=== PATIENT | female | born 1940 | race Caucasian/White ===

== ENCOUNTER 2016-08-11 16:15 | Inpatient (IN) | payer MEDICARE, MEDICAID ==
[2016-08-11] MEDS ORDERED: Morphine INJ* 4 MG/ML 1 ML CARPUJECT IV ONE (17:44)
[2016-08-11 18:07] LABS: Comments Flag Yes; Hematocrit 18 % (35-47); Mean Corpuscular HGB Conc 33 g/dl (31-36); Mean Corpuscular Hemoglobin 34 pg (27-31); Mean Corpuscular Volume 102 fL (80-97); Mean Platelet Volume 10 um3 (7.4-10.4); Red Blood Count 1.73 10^6/ul (4.0-5.4); White Blood Count 6.1 10^3/ul (3.5-10.8)
[2016-08-11 18:08] LABS: Red Cell Distribution Width 25 % (10.5-15)
[2016-08-11 18:09] LABS: Add Diff/Slide Review? Slide Review Added; Hemoglobin 5.8 g/dl (12.0-16.0)
[2016-08-11 18:15] LABS: Albumin 2.1 g/dL (3.2-5.2); BUN/Creatinine Ratio 13.6 (8-20); C Reactive Protein 23.8 mg/L (< 5.00); Calcium 7.8 mg/dL (8.6-10.3); EGFR Non-African American 25.7 (>60); Globulin 2.4 g/dL (2-4); Potassium 3.9 mmol/L (3.5-5.0); Total Bilirubin 3.6 mg/dL (0.2-1.0); Total Protein 4.5 g/dL (6.4-8.9)
[2016-08-11 18:21] LABS: Troponin I 0.06 ng/mL (<0.04)
[2016-08-11 18:31] LABS: Hypochromasia 2+; Polychromasia 1+; Target Cells 1+
[2016-08-11 18:32] LABS: Microcytosis 1+
[2016-08-11] MEDS ORDERED: NS 0.9% 1000 ML* 1,000 ML IV ONE (18:38)
[2016-08-11] MEDS ORDERED: Ondansetron INJ* 2 MG/ML VIAL IV PRN (20:25)
[2016-08-11] MEDS ORDERED: Acetaminophen TAB* 325 MG PO PRN (20:25)
[2016-08-11] MEDS ORDERED: NS 0.9% 1000 ML* 1,000 ML IV SCH (20:30)
[2016-08-11] MEDS ORDERED: Morphine INJ* 2 MG/ML 1 ML CARPUJECT ONE (20:39)
[2016-08-11] MEDS: Morphine INJ* 2 MG/ML 1 ML CARPUJECT IV PRN (20:49)
--- NOTE | 2016-08-11 21:52 | RAD ---
HISTORY: Left hip pain status post fixation of fracture COMPARISONS: July 09, 2016 plain film TECHNIQUE: Multiple contiguous axial CT images are obtained of the left lower extremity, with coronal and sagittal multiplanar reconstructions, without intravenous contrast administration. FINDINGS: BONE DENSITY: Normal. BONES: Again noted is a intertrochanteric fracture of the left femur. The patient is status post internal fixation with a femoral medullary agustín and a femoral neck screw. The fracture lines are still visible. There is no hardware failure or osteolysis. JOINTS: There is osteoarthritis of the left hip and left knee MUSCULATURE: Unremarkable ALIGNMENT: There is no dislocation. SOFT TISSUES: There is subcutaneous edema along the left thigh OTHER FINDINGS: There is a trace amount of ascites in the pelvis. IMPRESSION: 1. AGAIN NOTED IS A FRACTURE OF THE PROXIMAL FEMUR, STATUS POST INTERNAL FIXATION. 2. THERE IS SUBCUTANEOUS EDEMA OF THE LEFT THIGH. 3. OSTEOARTHRITIS. 4. TRACE PELVIC ASCITES
--- NOTE | 2016-08-11 22:58 | ED ---
Jayme Painting Aidan, scribed for Benigno Basurto MD on 08/11/16 at 1816 . GI/ HPI - HPI Summary HPI Summary: 75 y/o female presents to the ED by recommendation from her care home with a complaint of acute, moderate episodes of hematochezia today. Additionally, she has had acute, constant, [id number] (reported 10/10, but no pain distress), sharp left hip pain for the past several weeks since her hip surgery. The pain has progressively gotten worsen and is aggravated by movement. - History of Current Complaint Chief Complaint: EDGIBleed Time Seen by Provider: 08/11/16 17:10 Stated Complaint: BLOOD IN STOOL Hx Obtained From: Patient Onset/Duration: Started Hours Ago - hematochezia, Started Weeks Ago - left hip pain, Still Present - left hip pain Timing: Constant - left hip pain, Intermittent - hematochezia, Lasting Weeks - hip pain Severity: Moderate Current Severity: Moderate - gachyazh-ro-hadete hip pain Number of Pads per Day: 0 - Post-menopausal Number of Pads per Hour: 0 - Post-menopausal Pain Intensity: 10 - left hip pain Location of Pain: Groin - not groin, but left hip Pain Characteristics: Sharp Associated Signs and Symptoms: Positive: Other: - hematochezia and left hip pain P/S surgery Aggravating Factor(s): Movement - aggravates hip pain Alleviating Factor(s): Nothing - unknown - Risk Factors GI Bleed Risk Factor(s): Negative Spontaneous AB Risk Factor(s): Increased Age of Mother Placental Abruption Risk Factor(s): Negative Ectopic Risk Factor(s): Maternal Age ^ 30 Ovarian Torsion Risk Factor(s): Negative - Additional Pertinent History Primary Care Physician: [id number] - Allergy/Home Medications Allergies/Adverse Reactions: Allergies Allergy/AdvReac Type Severity Reaction Status Date / Time No Known Allergies Allergy Verified 08/11/16 16:47 Home Medications: Home Medications Ciprofloxacin TAB* [Cipro Tab*] 500 mg PO BID 08/11/16 [History Confirmed ] Furosemide TAB* [Lasix TAB*] 20 mg PO 1400 08/11/16 [History Confirmed 08/11/16] Furosemide TAB* [Lasix TAB*] 60 mg PO DAILY 08/11/16 [History Confirmed 08/11/16 ] Methylcellulose (Laxative) [Citrucel] 500 mg PO BID PRN 08/11/16 [History Confirmed 08/11/16] Skin Protectants, Misc. [Calazime Skin Protectant/] 1 pst EX DAILY 08/11/16 [ History Confirmed 08/11/16] Spironolactone [Aldactone 50 MG-] 100 mg PO DAILY 08/11/16 [History Confirmed ] oxyCODONE/Acetamin 5/325 MG* [Percocet 5/325 TAB*] 1 tab PO Q4H PRN 08/11/16 [ History Confirmed 08/11/16] PMH/Surg Hx/FS Hx/Imm Hx Endocrine/Hematology History: Denies: Hx Diabetes, Hx Thyroid Disease Cardiovascular History: Reports: Hx Syncope Denies: Hx Hypertension Respiratory History: Denies: Hx Asthma, Hx Chronic Obstructive Pulmonary Disease (COPD) GI History: Reports: Hx Cirrhosis, Hx Gastroesophageal Reflux Disease, Other GI Disorders - Hepatic encephalopathy. Denies: Hx Ulcer History: Reports: Hx Chronic Renal Failure, Hx Renal Disease - and liver disease Musculoskeletal History: Reports: Hx Arthritis Sensory History: Reports: Hx Cataracts, Hx Contacts or Glasses, Hx Vision Problem Opthamlomology History: Reports: Hx Cataracts, Hx Contacts or Glasses, Hx Vision Problem Neurological History: Reports: Hx Headaches, Hx Seizures Psychiatric History: Reports: Hx Depression - [id number] said pt. was prescribed medicine for depression but did not - Surgical History Surgery Procedure, Year, and Place: cataracts - Immunization History Date of Tetanus Vaccine: 2009 Date of Influenza Vaccine: 2011 Infectious Disease History: No Infectious Disease History: Denies: Hx Hepatitis, Hx Human Immunodeficiency Virus (HIV), Hx of Known/ Suspected MRSA, History Other Infectious Disease, Traveled Outside the [place] in Last 30 Days - Family History Known Family History: Negative: Cardiac Disease, Hypertension, Diabetes Family History: Father: Pulmonary embolism. Sister: Cirrhosis - Social History Occupation: Retired Lives: [facility] - currently, however, she typically lives alone Alcohol Use: None Substance Use Type: Reports: None Hx Tobacco Use: Yes Smoking Status (MU): Former Smoker Type: Cigarettes Length of Time of Smoking/Using Tobacco: 15 years ago Have You Smoked in the Last Year: No Review of Systems Constitutional: Negative Eyes: Negative ENT: Negative Cardiovascular: Negative Respiratory: Negative Gastrointestinal: Other - hematochezia Genitourinary: Negative Positive: Arthralgia - left hip pain Skin: Negative Neurological: Negative Psychological: Normal All Other Systems Reviewed And Are Negative: Yes Physical Exam Triage Information Reviewed: Yes Vital Signs On Initial Exam: Initial Vitals Temp Pulse Resp BP Pulse Ox 99.3 F 94 18 113/66 96 08/11/16 16:43 08/11/16 16:43 08/11/16 16:43 08/11/16 16:43 08/11/16 16:43 Vital Signs Reviewed: Yes Appearance: Positive: Well-Appearing, No Pain Distress Skin: Positive: Warm, Skin Color Reflects Adequate Perfusion, Dry, Other - wound is clean Head/Face: Positive: Normal Head/Face Inspection Eyes: Positive: Normal ENT: Positive: Normal ENT inspection Neck: Positive: Supple, Nontender Respiratory/Lung Sounds: Positive: Clear to Auscultation, Breath Sounds Present Cardiovascular: Positive: RRR Abdomen Description: Positive: Nontender, Soft Bowel Sounds: Positive: Present Musculoskeletal: Positive: Normal. Negative: Strength/ROM Intact - tenderness to any ROM of left hip Neurological: Positive: Normal Psychiatric: Positive: Normal, Affect/Mood Appropriate AVPU Assessment: Alert - Daysi Coma Scale Coma Scale Total: 15 Diagnostics - Vital Signs Vital Signs Temp Pulse Resp BP Pulse Ox 08/11/16 17:57 18 08/11/16 16:43 99.3 F 94 18 113/66 96 - Laboratory Lab Results: Lab Results 08/11/16 08/11/16 08/11/16 Range/Units 16:50 16:50 16:50 WBC 6.1 (3.5-10.8) 10^3/ul RBC 1.73 L (4.0-5.4) 10^6/ul Hgb 5.8 L* (12.0-16.0) g/dl Hct 18 L (35-47) % MCV 102 H (80-97) fL MCH 34 H (27-31) pg MCHC 33 (31-36) g/dl RDW 25 H (10.5-15) % Plt Count 75 L (150-450) 10^3/ul MPV 10 (7.4-10.4) um3 Neut % (Auto) 60.0 (38-83) % Lymph % (Auto) 15.6 L (25-47) % [place] % (Auto) 22.0 H (1-9) % Eos % (Auto) 1.9 (0-6) % Baso % (Auto) 0.5 (0-2) % Absolute Neuts (auto) 3.7 (1.5-7.7) 10^3/ul Absolute Lymphs (auto) 1.0 (1.0-4.8) 10^3/ul Absolute Monos (auto) 1.3 H (0-0.8) 10^3/ul Absolute Eos (auto) 0.1 (0-0.6) 10^3/ul Absolute Basos (auto) 0 (0-0.2) 10^3/ul Absolute Nucleated RBC 0.01 10^3/ul Nucleated RBC % 0.1 Normal RBC Morphology Not Reportable Polychromasia 1+ Hypochromasia 2+ Microcytosis 1+ Target Cells 1+ INR (Anticoag Therapy) 1.80 H (0.89-1.11) Sodium 135 (133-145) mmol/L Potassium 3.9 (3.5-5.0) mmol/L Chloride 107 (101-111) mmol/L Carbon Dioxide 22 (22-32) mmol/L Anion Gap 6 (2-11) mmol/L BUN 26 H (6-24) mg/dL Creatinine 1.91 H (0.51-0.95) mg/dL Est GFR ( Amer) 33.0 (>60) Est GFR (Non-Af Amer) 25.7 (>60) BUN/Creatinine Ratio 13.6 (8-20) Glucose 119 H (70-100) mg/dL Calcium 7.8 L (8.6-10.3) mg/dL Total Bilirubin 3.60 H (0.2-1.0) mg/dL AST 50 H (13-39) U/L ALT 24 (7-52) U/L Alkaline Phosphatase 127 H (34-104) U/L Ammonia (16-53) mol/L Troponin I 0.06 H* (<0.04) ng/mL C-Reactive Protein 23.80 H (< 5.00) mg/L Total Protein 4.5 L (6.4-8.9) g/dL Albumin 2.1 L (3.2-5.2) g/dL Globulin 2.4 (2-4) g/dL Albumin/Globulin Ratio 0.9 L (1-3) Blood Type Antibody Screen Crossmatch 08/11/16 08/11/16 Range/Units 16:50 16:50 WBC (3.5-10.8) 10^3/ul RBC (4.0-5.4) 10^6/ul Hgb (12.0-16.0) g/dl Hct (35-47) % MCV (80-97) fL MCH (27-31) pg MCHC (31-36) g/dl RDW (10.5-15) % Plt Count (150-450) 10^3/ul MPV (7.4-10.4) um3 Neut % (Auto) (38-83) % Lymph % (Auto) (25-47) % [place] % (Auto) (1-9) % Eos % (Auto) (0-6) % Baso % (Auto) (0-2) % Absolute Neuts (auto) (1.5-7.7) 10^3/ul Absolute Lymphs (auto) (1.0-4.8) 10^3/ul Absolute Monos (auto) (0-0.8) 10^3/ul Absolute Eos (auto) (0-0.6) 10^3/ul Absolute Basos (auto) (0-0.2) 10^3/ul Absolute Nucleated RBC 10^3/ul Nucleated RBC % Normal RBC Morphology Polychromasia Hypochromasia Microcytosis Target Cells INR (Anticoag Therapy) (0.89-1.11) Sodium (133-145) mmol/L Potassium (3.5-5.0) mmol/L Chloride (101-111) mmol/L Carbon Dioxide (22-32) mmol/L Anion Gap (2-11) mmol/L BUN (6-24) mg/dL Creatinine (0.51-0.95) mg/dL Est GFR ( Amer) (>60) Est GFR (Non-Af Amer) (>60) BUN/Creatinine Ratio (8-20) Glucose (70-100) mg/dL Calcium (8.6-10.3) mg/dL Total Bilirubin (0.2-1.0) mg/dL AST (13-39) U/L ALT (7-52) U/L Alkaline Phosphatase (34-104) U/L Ammonia 37 (16-53) mol/L Troponin I (<0.04) ng/mL C-Reactive Protein (< 5.00) mg/L Total Protein (6.4-8.9) g/dL Albumin (3.2-5.2) g/dL Globulin (2-4) g/dL Albumin/Globulin Ratio (1-3) Blood Type A Positive Antibody Screen Negative Crossmatch See Detail Result Diagrams: 08/11/16 16:50 08/11/16 16:50 Lab Statement: Any lab studies that have been ordered have been reviewed, and results considered in the medical decision making process. GIGU Course/Dx - Course Course Of Treatment: Ms. Ford was found to be acutely more anemic than normal. This is likely a lower GI bleed as her BUN is not changed. She also has low proteins and anasarca. She will be admitted to the hospitalists and PRBC's have been ordered. - Diagnoses Provider Diagnoses: GI bleed - Critical Care Time Critical Care Time: 30-74 min Discharge - Discharge Plan Condition: Stable Disposition: ADMITTED TO [facility] The documentation as recorded by the Jayme wayne Aidan accurately reflects the service I personally performed and the decisions made by me, Benigno Basurto MD.
[2016-08-11] MEDS: Omeprazole CAP* 20 MG PO SCH (23:17)
[2016-08-11] MEDS: RiFAXimin* 550 MG TAB PO SCH (23:18)
--- NOTE | 2016-08-12 01:31 | HP ---
HISTORY AND PHYSICAL: DATE OF ADMISSION: 08/11/16 PRIMARY CARE PROVIDER: Dr. Muro. CHIEF COMPLAINT: Bloody stool and left hip pain. HISTORY OF PRESENT ILLNESS: Ms. Ford is a 75-year-old female who was hospitalized from 07/09/16 to 07/25/16 after sustaining a left intertrochanteric hip fracture. The patient was taken initially to the operating room on 07/09/16 for closed reduction and gamma nail fixation. The patient reportedly did well following this; however, on 07/16/16, the patient was taken back to the operating room for exploration of her hip wound as there appeared to be no significant healing despite being 6 days postop. The patient was ultimately transferred to [facility] on 07/25/16 for subacute rehab. During that hospitalization, the patient was also treated for acute renal failure and significant postoperative anemia. The patient reportedly have been doing well at rehab up until this past , 08/07/16. The patient on the evening of 08/06/16 sustained a fall. She states that she believes that she either took a misstep or fell out of her slippers. She denied any loss of consciousness at that time. The patient states that she did not hit her left leg. On 08/07/16 in the morning, she again had another fall again without loss of consciousness, but it was a mechanical fall. The patient's son stated that he saw her on Thursday and she was doing well with rehab; however, by , she was not ambulatory. The patient has since complained of severe left hip pain. The patient states that the pain is dramatically worse today and she did not get up to walk due to her severe pain. The patient's family noted in the emergency room that there was bruising going down the back of the left leg. They stated this was not there prior to her fall. On the day of admission, the staff at [facility] noted the patient to have bright red blood in her stool. The patient herself had not inspected her stools. She denied any lightheadedness or dizziness. She denies any shortness of breath or chest pain. She denies any fevers or chills. She does state she has had a cough that has been present since prior to surgery and she is not bringing up any mucus. PAST MEDICAL HISTORY: 1. Nonalcoholic fatty liver disease. 2. 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 3. History of hepatic encephalopathy. 4. GERD. 5. Seizure disorder. 6. Chronic anemia. PAST SURGICAL HISTORY: 1. Cataract extraction. 2. Left hip closed reduction and internal fixation on 07/09/16 followed by wound exploration on 07/16/16. MEDICATIONS: 1. Percocet 5/325 one to two tabs p.o. q.4 hours p.r.n. 2. Spironolactone 100 mg p.o. daily. 3. Calazime skin protectant. 4. Rifaximin 550 mg p.o. b.i.d. 5. Potassium chloride 10 mEq p.o. every other day. 6. Omeprazole 20 mg p.o. b.i.d. 7. [place]-3 fatty acids 1 cap p.o. daily. 8. Multivitamin 1 tab p.o. daily. 9. Citrucel 500 mg p.o. b.i.d. p.r.n. constipation. 10. Lactulose 45 mL p.o. t.i.d. 11. Lasix 60 mg p.o. q.a.m., 20 mg p.o. q. 1400 daily. 12. Ciprofloxacin 500 mg p.o. b.i.d. ALLERGIES: No known drug allergies. FAMILY HISTORY: Mom is living. She is 101. She has no significant medical history. Dad of a PE. The patient has a sister, who also has cirrhosis. SOCIAL HISTORY: The patient is a former smoker quitting greater than 15 years ago. She denies any alcohol use. 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 She is . She has 2 children. Her son, Shashi Ford, is her healthcare proxy. REVIEW OF SYSTEMS: The patient denies any fevers or chills. She states her appetite is poor, but attributes that to not liking the food at [facility]. She denies any chest pain. She has chronic lower extremity edema that is slightly better now than it has been. She admits to cough as noted above, but no shortness of breath. No nausea, vomiting, abdominal pain, or constipation. She has 4 to 5 loose bowel movements per day. No hematuria. No dysuria. No focal weakness or sensory loss. No sudden changes in vision. No dysphagia. She complains of severe left hip pain as noted above. No rashes. No anxiety or depression. PHYSICAL EXAMINATION GENERAL: The patient is a well-developed, elderly, obese female, lying in a stretcher, appearing somewhat sleepy and confused, but otherwise in no acute distress. VITAL SIGNS: Blood pressure 124/36, pulse 88, respirations 16, temp 98.6, O2 sat 95% on room air. HEENT: Pupils are equal. They are approximately 2 mm. There is evidence of prior cataract extraction. Extraocular muscles are intact. Oropharynx is clear. Oral mucosa is moist, though her tongue appears furrowed and dark red. There is no submandibular, cervical, or supraclavicular adenopathy noted. Thyroid is not enlarged. No thyroid nodules are noted. PULMONARY: Breath sounds are diminished at the base bilaterally. CARDIAC: Normal S1, S2. Regular rate and rhythm. I do not appreciate any murmurs. There is marked anasarca of the patient's bilateral lower extremities up to the hips and lower abdomen. ABDOMEN: Bowel sounds are present. Abdomen is soft, nontender, and nondistended. MUSCULOSKELETAL: There is no cyanosis or clubbing of the digits. There is full active range of motion of the upper extremities. Lower extremity range of motion in general is limited due to pain in the left hip. The patient does have pain to passive internal and external rotation of the left hip. There is less significant pain to straight leg raising pf the left lower extremity. NEUROLOGIC: Cranial nerves II through XII are grossly intact. Sensation is intact to light touch throughout. Strength is 5/5 and symmetric in the upper extremities. Lower extremity strength is limited due to pain. The patient appears somewhat confused and in general poor historian. PSYCH: The patient is alert. Affect appears appropriate. SKIN: Warm. It is dry. There are no rashes. The left hip incision has sutures in place. There is marked edema surrounding this. There is also brawny discoloration surrounding this with slight erythema. The wound itself does not appear to be well-healed. There is serous drainage noted on the dressing overlying the incision. This is slightly foul smelling. DIAGNOSTIC STUDIES/LAB DATA: WBC 6.1, hemoglobin 5.8, hematocrit 18, platelets 75. INR 1.8. Sodium 135, potassium 3.9, chloride 107, CO2 22, BUN 26 , creatinine 1.91, glucose 119, calcium 7.8. Bilirubin 3.6, AST 50, ALT 24, alk phos 127. Ammonia 37. Troponin 0.06. CRP 23.8. Albumin 2.1. EKG pending. Left lower extremity CT pending. ASSESSMENT AND PLAN: Ms. Ford is a 75-year-old female who has a history of left hip fracture status post closed reduction and internal fixation on followed by wound exploration on 07/16/16 who presents to the emergency room with complaints of both severe left hip pain and inability to walk as well as bright red blood per rectum. 1. Left hip pain: The patient unfortunately did take 2 falls last week. Since the time of those falls, the patient has not been able to ambulate well. In fact, she cannot ambulate at all on the date of admission. I am very concerned about this. She states that she did not hit her left leg when she fell; however, there is bruising noted to the posterior aspect of the left leg including the calf and just above the knee. Additionally, the patient has slightly foul smelling drainage from her left hip wound. She has been on Cipro at the long-term. She does not have fever nor does she have an elevated white blood cell count. I suspect there is a very low likelihood that this is in fact a wound infection. I do believe it is important to get imaging of that left hip. I feel that a CT scan would be most appropriate at this time. When they have the result of the CT scan, I will contact the orthopedic surgeon on- call to review. In the meantime, she will have IV morphine available for severe pain and Percocet for more milder pain. 2. Bright red blood per rectum: The patient reportedly had one stool at the long-term, was bright red blood per rectum. In the ER, the patient had a soft bowel movement that was dark brown in color without any visible blood. Her stool occult blood is pending. The patient's hemoglobin and hematocrit have dropped since her discharge. During her previous hospitalization, she received 4 units of packed red blood cells. On discharge, her hemoglobin was 8.0. It has subsequently trended down to 5.8. This could be secondary to GI bleed; however, I am also concerned that she may have bled into the left leg. I am going to be obtaining a CT of at least the left hip. We will follow her hemoglobin and hematocrit. She has been ordered to receive 2 units of packed red blood cells. 3. Elevated troponin: I suspect that this represents demand ischemia. The patient has not had an EKG yet and I have ordered this. A followup troponin will be obtained. If her troponin does climb unfortunately, she would not be a candidate for heparin drip or Lovenox as there is concerned from GI bleed or bleeding into the left leg. The patient is currently chest pain free. 4. Acute kidney injury: The patient prior to falling and breaking her hip on 07/09/16 had a normal creatinine. Her creatinine did climb to a maximum of 2.4 during her hospitalization in the end of June to the beginning of July. Her creatinine had trended down to 1.28 on 07/30/16. Her creatinine is now back up to 1.91. The patient's Lasix dose was increased as was her spironolactone. At this time, I do feel that attempting to diurese the patient is important as she is not healing her left hip wound. I am going to go ahead, however, and give her 1 liter of fluid. She will resume her diuretics tomorrow. We will need to follow up her lab work at that time. 5. Cirrhosis with elevated AST and bilirubin: These are chronic. In fact, the patient's AST and bilirubin are slightly better than they are normally. This is on the basis of her nonalcoholic fatty liver disease and cirrhosis. We will follow these levels intermittently. 6. Elevated INR: This is secondary to the patient's history of cirrhosis. We will need to follow this. 7. Thrombocytopenia and chronic anemia: The patient's have been chronically anemic, though now worsened. Her thrombocytopenia is about stable. This is likely secondary to her cirrhosis. We will follow these counts closely. 8. Cirrhosis secondary to nonalcoholic fatty liver disease with intermittent episodes of hepatic encephalopathy: We will go ahead and continue the patient' s usual dose of rifaximin and lactulose. We will monitor her mental status in the setting of this acute illness. 9. DVT prophylaxis: According to the Adult Thrombosis Prophylaxis Risk Factor Assessment Guide, the patient has a total risk factor score of 9 making her the highest risk. She will be placed on SCDs alone for now as there is concerned for GI bleed or bleeding into the left leg. 10. Code status: DNR and again, the patient's son, Shashi, is her health care proxy. TIME SPENT: 70 minutes were spent admitting this patient. CC: Dr. Rizzo; Dr. Muro* [id number]/CPS #: [id number] MTDD
[2016-08-12 03:56] LABS: Comments Flag Yes; Hematocrit 22 % (35-47); Hemoglobin 7.2 g/dl (12.0-16.0); Mean Corpuscular HGB Conc 33 g/dl (31-36); Mean Corpuscular Hemoglobin 31 pg (27-31); Mean Corpuscular Volume 95 fL (80-97); Mean Platelet Volume 9 um3 (7.4-10.4); Red Blood Count 2.29 10^6/ul (4.0-5.4); White Blood Count 6.3 10^3/ul (3.5-10.8)
[2016-08-12 03:57] LABS: Red Cell Distribution Width 24 % (10.5-15)
[2016-08-12 05:51] LABS: Hematocrit 22 % (35-47); Hemoglobin 7.2 g/dl (12.0-16.0)
[2016-08-12 05:57] LABS: Comments Flag Yes
[2016-08-12 06:31] LABS: BUN/Creatinine Ratio 13.9 (8-20); EGFR Non-African American 27.5 (>60); Potassium 3.7 mmol/L (3.5-5.0)
[2016-08-12 06:32] LABS: Calcium 7.5 mg/dL (8.6-10.3); EGFR African American 35.4 (>60)
[2016-08-12] MEDS ORDERED: Spironolactone TAB* 25 MG PO SCH (09:00)
[2016-08-12] MEDS ORDERED: Furosemide TAB* 20 MG PO SCH ×2 (09:00→14:00)
[2016-08-12] MEDS: Multivitamins/Minerals TAB PO SCH (10:14)
[2016-08-12] MEDS: Omeprazole CAP* 20 MG PO SCH ×2 (10:14→21:27)
[2016-08-12] MEDS: RiFAXimin* 550 MG TAB PO SCH ×2 (10:15→21:27)
[2016-08-12] MEDS ORDERED: Phytonadione Oral Solution* 5 MG/25 ML UDC PO ONE (16:51)
[2016-08-12] MEDS ORDERED: Piperac/Tazob 3.375 gm in NS* 3.375 GM/100 ML BAG IVPB ONE (17:00)
[2016-08-12] MEDS ORDERED: Vancomycin(*) 1,250 MG in NS 0.9% 250 ML* 250 ML IVPB ONE (18:00)
--- NOTE | 2016-08-12 19:44 | PN ---
Subjective Date of Service: 08/12/16 Interval History: HOSPITALIST PROGRESS NOTE Patient seen and examined at bedside. She feels well today. States her hip pain is less intense. Tolerating diet well with no abdominal pain, nausea or vomiting. Had BMs today, but no BRBPR reported. Family History: Unchanged from Admission Social History: Unchanged from Admission Past Medical History: Unchanged from Admission Objective Active Medications: Acetaminophen (Tylenol Tab*) 650 mg PO Q4H PRN PRN Reason: PAIN Furosemide (Lasix Tab*) 60 mg PO DAILY [facility] Last Admin: 08/12/16 10:14 Dose: 60 mg Furosemide (Lasix Tab*) 20 mg PO 1400 [facility] Last Admin: 08/12/16 15:54 Dose: 20 mg Piperacillin Sod/Tazobactam Sod (Zosyn 3.375 Gm In Ns Premix*) 3.375 gm in 100 mls @ 25 mls/hr IVPB Q8H [facility] Vancomycin HCl 1,000 mg/ (Sodium Chloride) 250 mls @ 166.667 mls/hr IVPB Q12H [facility] Lactulose (Lactulose*) 45 ml PO TID [facility] Last Admin: 08/12/16 15:55 Dose: 45 ml Morphine Sulfate (Morphine Inj (Syringe)*) 2 mg IV Q4H PRN PRN Reason: PAIN - MILD Last Admin: 08/11/16 20:49 Dose: 2 mg Multivitamins/Minerals (Theragran/Minerals Tab*) 1 tab PO DAILY [facility] Last Admin: 08/12/16 10:14 Dose: 1 tab Omeprazole (Prilosec Cap*) 20 mg PO BID [facility] Last Admin: 08/12/16 10:14 Dose: 20 mg Ondansetron HCl (Zofran Inj*) 4 mg IV Q6H PRN PRN Reason: NAUSEA Oxycodone/Acetaminophen (Percocet 5/325 Tab*) 1 tab PO Q4H PRN PRN Reason: PAIN Pharmacy Profile Note (Vancomycin Trough Check) 1 note FOLLOW UP 0600 [facility] Stop: 08/14/16 06:29 Potassium Chloride (Klor Con Er Tab*) 10 meq PO EVERY OTHER DAY [facility] Rifaximin (Xifaxan*) 550 mg PO BID [facility] Last Admin: 08/12/16 10:15 Dose: 550 mg Spironolactone (Aldactone Tab*) 100 mg PO DAILY [facility] Last Admin: 12/27/16 10:13 Dose: 100 mg Vital Signs 08/12/16 08/12/16 11:31 15:25 Temperature 98.7 F 98.1 F Pulse Rate 85 87 Respiratory 16 16 Rate Blood Pressure 120/48 123/46 (mmHg) O2 Sat by Pulse 97 94 Oximetry Oxygen Devices in Use Now: None Appearance: Elderly lady lying in bed in NAD. Eyes: - - Mild scleral icterus Ears/Nose/Mouth/Throat: Mucous Membranes Moist Neck: Trachea Midline Respiratory: Symmetrical Chest Expansion and Respiratory Effort, Clear to Auscultation Cardiovascular: RRR - Normal S1 and S2 Abdominal: NL Sounds; No Tenderness; No Distention Extremities: - - Bilateral upper and lower extremities edema. Surgical incisions look clean and there is no drainage at this time. Ecchymosis to the posterior aspect of LLE Neurological: Alert and Oriented x 3, NL Muscle Strength and Tone Lines/Tubes/Other Access: Clean, Dry and Intact Peripheral IV Nutrition: Taking PO's Result Diagrams: 08/12/16 05:28 08/12/16 05:28 Assess/Plan/Problems-Billing Assessment: Mrs. 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 - Patient Problems (1) Left hip pain Comment: - CT showed proximal femur fracture s/p IF, subcutaneous edema, but no other fluid collections. - She has upper and lower extremities edema suggestive of anasarca and not only on her left hip area. - No drainage from surgical incision and she has no signs of sepsis. - Ortho consult requested. - Start Vanco/Zosyn empirically until evaluation. (2) BRBPR (bright red blood per rectum) Comment: - Painless hematochezia - suspect diverticular in nature. Last colonoscopy in 2013 showed sigmoid diverticulosis. - Continue to monitor. - GI consult requested. (3) Acute blood loss anemia Comment: - Chronically anemic, but now worse. - S/p 2 PRBC - continue to monitor. - Check anemia w/u. (4) Elevated troponin Comment: - Elevated troponin in the setting of significant anemia. - Stable. (5) KYRA (acute kidney injury) Comment: - Probably pre-renal in the setting of significant anemia. - Trending down. (6) Non-alcoholic cirrhosis Comment: - She has significant edema, has gained 20lbs since prior admission - will switch Furosemide to IV. - Ammonia is normal - continue Lactulose and Rifaximin. (7) DVT prophylaxis Comment: - Pharmacological prophylaxis contraindicated in the setting of GI bleed. - SCDs.
[2016-08-12] MEDS: Piperac/Tazob 3.375 gm in NS* 3.375 GM/100 ML BAG IVPB SCH (21:27)
--- NOTE | 2016-08-12 23:25 | CONS ---
GASTROENTEROLOGY CONSULT: DATE: CONSULTING PHYSICIAN: Syl Unger. REASON FOR CONSULT: Heme-positive stool with history of a bloody stool at [facility] 2 days ago. HISTORY: This 75-year-old woman known to have nonalcoholic cirrhosis for at least 10 years, exactly 1 month ago had a left hip fracture that was pinned. She has been convalescing at [facility]. Apparently, she has fallen on a couple of occasions. She was thus brought to the emergency room with pain in the hip and also reports from the facility that her last stool had been bloody. In the emergency room, however, she passed a brown stool that was not grossly bloody. It was heme positive. The patient had been going through physical therapy at the halfway and this is reviewed thoroughly in Dr. Tariq's history from yesterday. She had had a colonoscopy, March 2014, in [place] where a number of polyps were removed (apparently via cautery) and she was also said to have sigmoid diverticulosis. There were apparently no complications. Her liver disease was not apparently a factor. PAST MEDICAL HISTORY: 1. Morbid obesity. 2. Non-alcoholic fatty liver - a 2007 history and physical here refers to a liver biopsy in [place] from 2005 or before. 3. Hepatic encephalopathy - in the 2007 admission and managed carefully at home. 4. Chronic anemia and pancytopenia. OUTPATIENT MEDS: Furosemide 20 mg; spironolactone 100; rifaximin 550 b.i.d.; methylcellulose; omeprazole 20 b.i.d.; Cipro recently, indication uncertain. SOCIAL HISTORY: She lives in [place] with her son, Tru, and his . He goes by [employer]. Her [id number] mother lives with them. REVIEW OF SYSTEMS: No history of syncope, DE, valvular disease, hemoptysis, or TB. Her seizure disorder was discussed in 2007 and 2009 when she had neurologic consults. PHYSICAL EXAM: She is a morbidly obese woman in bed, a little drowsy. She is oriented to person and place and time and knew she had been in [facility]. Her temp is 98.1, pulse 92, blood pressure 123/46. HEENT exam shows some mild icterus. There is anasarca with dependent edema on the flanks. She has no adenopathy. Lungs are clear but effort is poor. Heart sounds are clear. Breast and pelvic exams are deferred. Rectal exam is deferred as she has the hip pinning and is not very mobile. The abdomen shows multiple old striae that are not colored. The abdomen is obese and there is no palpable organomegaly. Extremities show 2 to 3+ edema. Compression devices are in place. LABORATORY DATA: INR 1.80 (no warfarin been given) and after 2 units transfusion, hemoglobin 7.2, hematocrit 22, MCV 95, platelets 64 (consistent with prior). Electrolytes: Sodium 133, potassium 3.7, creatinine 1.80, BUN 25. IMPRESSION: This 75-year-old woman 1 month out from hip pinning is having a difficult convalescence which her morbid obesity, mobility impairment, and underlying liver disease would predict. The recent bleeding event has not been associated with a precipitous drop in her hemoglobin as compared to her already compromised baseline and it has not raised her BUN. It does seem more likely to be from the anal canal or an anorectal mechanical event or possibly a very small diverticular bleed. In some settings, upper endoscopy to look for varices to prophylax would make sense (may have been dnone at [facility]) but after ten yrs with no problem at this time, she has enough going on to defer on that. Her nutrition is a priority and I do not believe upper endoscopy is indicated on a preventative basis. As bleeding has stopped it does not appear a priority to work up this current chronic anemia or the rectal bleeding that has been seen. She is clearly not a candidate for another polyp surveillance colonoscopy and results for colonoscopy are not likely to affect her decision making at this time. [id number]/[facility] #: [id number] FEROZ
[2016-08-13] MEDS: Piperac/Tazob 3.375 gm in NS* 3.375 GM/100 ML BAG IVPB SCH ×3 (05:23→23:05)
[2016-08-13 05:39] LABS: Hematocrit 21 % (35-47); Mean Corpuscular HGB Conc 34 g/dl (31-36); Mean Corpuscular Hemoglobin 32 pg (27-31); Mean Corpuscular Volume 96 fL (80-97); Mean Platelet Volume 10 um3 (7.4-10.4); Red Blood Count 2.13 10^6/ul (4.0-5.4); White Blood Count 6.3 10^3/ul (3.5-10.8)
[2016-08-13 05:40] LABS: Comments Flag Yes
[2016-08-13] MEDS: Vancomycin(*) 1,000 MG in NS 0.9% 250 ML* 250 ML IVPB SCH ×2 (05:40→17:57)
[2016-08-13 05:41] LABS: Hemoglobin 6.9 g/dl (12.0-16.0); Red Cell Distribution Width 24 % (10.5-15)
[2016-08-13 05:52] LABS: Anion Gap 5 mmol/L (2-11); BUN/Creatinine Ratio 14.6 (8-20); Blood Urea Nitrogen 23 mg/dL (6-24); C Reactive Protein 21.33 mg/L (< 5.00); CO2 Carbon Dioxide 23 mmol/L (22-32); Calcium 7.9 mg/dL (8.6-10.3); Chloride 108 mmol/L (101-111); EGFR African American 41.4 (>60); EGFR Non-African American 32.2 (>60); Glucose 101 mg/dL (70-100); Potassium 3.5 mmol/L (3.5-5.0); Sodium 136 mmol/L (133-145)
[2016-08-13 06:28] LABS: Iron 81 ug/dL (50-212); Total Iron Binding Capacity 202 mcg/dL (250-450); Transferrin 144 mg/dL (203-362)
[2016-08-13 06:33] LABS: Erythrocyte Sed Rate 10 mm/Hr (0-40)
[2016-08-13 06:49] LABS: Ferritin 187.6 ng/mL (11-307)
[2016-08-13 06:54] LABS: Folate > 20.00 ng/mL (>3.99)
[2016-08-13 06:55] LABS: Vitamin B12 > 1450 pg/mL (180-914)
[2016-08-13] MEDS: Omeprazole CAP* 20 MG PO SCH ×2 (08:53→21:42)
[2016-08-13] MEDS: RiFAXimin* 550 MG TAB PO SCH ×2 (08:53→23:04)
[2016-08-13] MEDS: Furosemide IV* 10 MG/ML VIAL (40 MG) IV SCH (08:53)
[2016-08-13] MEDS: Multivitamins/Minerals TAB PO SCH (08:53)
[2016-08-13] MEDS: Potassium Chlor TAB* 10 MEQ TAB.ER PO SCH (08:53)
--- NOTE | 2016-08-13 10:40 | PN ---
Subjective Date of Service: 08/13/16 Interval History: Ms. Ford states that she is feeling very tired today. When asked if she feels better than on arrival, she states, " Well, at least I am awake." She denies chest pain, SOB, nausea, or abdominal pain. She has pain in her hips and also pain in her legs when they are pressed. Family History: Unchanged from Admission Social History: Unchanged from Admission Past Medical History: Unchanged from Admission Objective Active Medications: Acetaminophen (Tylenol Tab*) 650 mg PO Q4H PRN Furosemide (Lasix Iv*) 40 mg IV DAILY [facility] Piperacillin Sod/Tazobactam Sod (Zosyn 3.375 Gm In Ns Premix*) 3.375 gm in 100 mls @ 25 mls/hr IVPB Q8H [facility] Vancomycin HCl 1,000 mg/ (Sodium Chloride) 250 mls @ 166.667 mls/hr IVPB Q12H [facility] Lactulose (Lactulose*) 45 ml PO TID [facility] Morphine Sulfate (Morphine Inj (Syringe)*) 2 mg IV Q4H PRN Multivitamins/Minerals (Theragran/Minerals Tab*) 1 tab PO DAILY [facility] Omeprazole (Prilosec Cap*) 20 mg PO BID [facility] Ondansetron HCl (Zofran Inj*) 4 mg IV Q6H PRN Oxycodone/Acetaminophen (Percocet 5/325 Tab*) 1 tab PO Q4H PRN Pharmacy Profile Note (Vancomycin Trough Check) 1 note FOLLOW UP 0600 [facility] Potassium Chloride (Klor Con Er Tab*) 10 meq PO EVERY OTHER DAY [facility] Rifaximin (Xifaxan*) 550 mg PO BID [facility] Spironolactone (Aldactone Tab*) 100 mg PO DAILY@1600 [facility] Vital Signs 08/12/16 08/12/16 08/12/16 11:16 11:31 15:25 Temperature 98.7 F 98.1 F Pulse Rate 85 87 Respiratory 16 16 16 Rate Blood Pressure 120/48 123/46 (mmHg) O2 Sat by Pulse 97 94 Oximetry 08/12/16 08/12/16 08/13/16 19:27 20:00 00:13 Temperature 99.2 F 98.2 F Pulse Rate 85 80 Respiratory 14 14 16 Rate Blood Pressure 109/46 126/45 (mmHg) O2 Sat by Pulse 95 99 Oximetry 08/13/16 08/13/16 08/13/16 05:04 05:43 08:00 Temperature 97.9 F 98.1 F Pulse Rate 80 Respiratory 16 18 Rate Blood Pressure 112/43 (mmHg) O2 Sat by Pulse 99 Oximetry 08/13/16 08:48 Temperature 98.4 F Pulse Rate 82 Respiratory 18 Rate Blood Pressure 117/40 (mmHg) O2 Sat by Pulse 99 Oximetry Oxygen Devices in Use Now: None Appearance: Female sitting up in chair in NAD Respiratory: Symmetrical Chest Expansion and Respiratory Effort, Clear to Auscultation Cardiovascular: NL Sounds; No Murmurs; No JVD Abdominal: NL Sounds; No Tenderness; No Distention Skin: No Rash or Ulcers Neurological: Alert and Oriented x 3, NL Muscle Strength and Tone, - - +3 pitting edema up to hip bilaterally Nutrition: Taking PO's Result Diagrams: 08/13/16 05:25 08/13/16 05:25 Additional Lab and Data: Lab Results 08/11/16 08/11/16 08/11/16 Range/Units 16:50 16:50 16:50 WBC 6.1 (3.5-10.8) 10^3/ul RBC 1.73 L (4.0-5.4) 10^6/ul Hgb 5.8 L* (12.0-16.0) g/dl Hct 18 L (35-47) % MCV 102 H (80-97) fL MCH 34 H (27-31) pg MCHC 33 (31-36) g/dl RDW 25 H (10.5-15) % Plt Count 75 L (150-450) 10^3/ul MPV 10 (7.4-10.4) um3 Neut % (Auto) 60.0 (38-83) % Lymph % (Auto) 15.6 L (25-47) % Austin % (Auto) 22.0 H (1-9) % Eos % (Auto) 1.9 (0-6) % Baso % (Auto) 0.5 (0-2) % Absolute Neuts (auto) 3.7 (1.5-7.7) 10^3/ul Absolute Lymphs (auto) 1.0 (1.0-4.8) 10^3/ul Absolute Monos (auto) 1.3 H (0-0.8) 10^3/ul Absolute Eos (auto) 0.1 (0-0.6) 10^3/ul Absolute Basos (auto) 0 (0-0.2) 10^3/ul Absolute Nucleated RBC 0.01 10^3/ul Nucleated RBC % 0.1 Normal RBC Morphology Not Reportable Polychromasia 1+ Hypochromasia 2+ Microcytosis 1+ Target Cells 1+ INR (Anticoag Therapy) 1.80 H (0.89-1.11) Sodium 135 (133-145) mmol/L Potassium 3.9 (3.5-5.0) mmol/L Chloride 107 (101-111) mmol/L Carbon Dioxide 22 (22-32) mmol/L Anion Gap 6 (2-11) mmol/L BUN 26 H (6-24) mg/dL Creatinine 1.91 H (0.51-0.95) mg/dL Est GFR ( Amer) 33.0 (>60) Est GFR (Non-Af Amer) 25.7 (>60) BUN/Creatinine Ratio 13.6 (8-20) Glucose 119 H (70-100) mg/dL Calcium 7.8 L (8.6-10.3) mg/dL Total Bilirubin 3.60 H (0.2-1.0) mg/dL AST 50 H (13-39) U/L ALT 24 (7-52) U/L Alkaline Phosphatase 127 H (34-104) U/L Ammonia (16-53) mol/L Troponin I 0.06 H* (<0.04) ng/mL C-Reactive Protein 23.80 H (< 5.00) mg/L Total Protein 4.5 L (6.4-8.9) g/dL Albumin 2.1 L (3.2-5.2) g/dL Globulin 2.4 (2-4) g/dL Albumin/Globulin Ratio 0.9 L (1-3) Blood Type Antibody Screen Crossmatch 08/11/16 08/11/16 Range/Units 16:50 16:50 WBC (3.5-10.8) 10^3/ul RBC (4.0-5.4) 10^6/ul Hgb (12.0-16.0) g/dl Hct (35-47) % MCV (80-97) fL MCH (27-31) pg MCHC (31-36) g/dl RDW (10.5-15) % Plt Count (150-450) 10^3/ul MPV (7.4-10.4) um3 Neut % (Auto) (38-83) % Lymph % (Auto) (25-47) % Austin % (Auto) (1-9) % Eos % (Auto) (0-6) % Baso % (Auto) (0-2) % Absolute Neuts (auto) (1.5-7.7) 10^3/ul Absolute Lymphs (auto) (1.0-4.8) 10^3/ul Absolute Monos (auto) (0-0.8) 10^3/ul Absolute Eos (auto) (0-0.6) 10^3/ul Absolute Basos (auto) (0-0.2) 10^3/ul Absolute Nucleated RBC 10^3/ul Nucleated RBC % Normal RBC Morphology Polychromasia Hypochromasia Microcytosis Target Cells INR (Anticoag Therapy) (0.89-1.11) Sodium (133-145) mmol/L Potassium (3.5-5.0) mmol/L Chloride (101-111) mmol/L Carbon Dioxide (22-32) mmol/L Anion Gap (2-11) mmol/L BUN (6-24) mg/dL Creatinine (0.51-0.95) mg/dL Est GFR ( Amer) (>60) Est GFR (Non-Af Amer) (>60) BUN/Creatinine Ratio (8-20) Glucose (70-100) mg/dL Calcium (8.6-10.3) mg/dL Total Bilirubin (0.2-1.0) mg/dL AST (13-39) U/L ALT (7-52) U/L Alkaline Phosphatase (34-104) U/L Ammonia 37 (16-53) mol/L Troponin I (<0.04) ng/mL C-Reactive Protein (< 5.00) mg/L Total Protein (6.4-8.9) g/dL Albumin (3.2-5.2) g/dL Globulin (2-4) g/dL Albumin/Globulin Ratio (1-3) Blood Type A Positive Antibody Screen Negative Crossmatch See Detail Assess/Plan/Problems-Billing Assessment: Mrs. 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 - Patient Problems (1) Anemia Comment: Responded appropriately to 2 units PRBC. Report of BRBPR x 1 and stool occult blood positive but GI sees no convincing evidence of significant bleed, suspect hemorrhoids vs small diverticular bleed. Last colonoscopy 2013. GI does not recommend upper or lower endoscopy at this point. No B12, iron, or folate deficiency. Suspect anemia of chronic illness and cirrhosis. (2) Left hip pain Comment: CT showed proximal femur fracture s/p IF, subcutaneous edema, but no other fluid collections. She has upper and lower extremities edema suggestive of anasarca and not only on her left hip area. No drainage from surgical incision and she has no signs of sepsis. Ortho consult requested. Continue Vanco /Zosyn empirically until evaluation. (3) Elevated troponin Comment: Peaked at 0.06. Elevated troponin in the setting of significant anemia , suspect demand ischemia. (4) Non-alcoholic cirrhosis Comment: She has significant edema, has gained 20lbs since prior admission - continue Furosemide IV. Daily weights. Ammonia is normal - continue Lactulose and Rifaximin. (5) GERD (gastroesophageal reflux disease) (6) Full code status Comment: Continue omeprazole. (7) DVT prophylaxis Comment: Pharmacological prophylaxis contraindicated in the setting of GI bleed. SCDs. Status and Disposition: Inpatient with expected LOS > 2 days. Return to [facility] when medically stable.
[2016-08-13] MEDS ORDERED: Furosemide IV* 10 MG/ML VIAL (40 MG) IV ONE (13:00)
[2016-08-13] MEDS: Spironolactone TAB* 25 MG PO SCH (16:43)
[2016-08-13] MEDS ORDERED: Mouth Piece, Nicotine* 1 EACH CARTRIDGE INH PRN (21:41)
[2016-08-13] MEDS ORDERED: Nicotine Inhaler* 10 MG AMP INH PRN (21:41)
--- NOTE | 2016-08-13 22:35 | PN ---
Progress Note - Progress Note Note: Full note dictated. I rounded on Ms. Ford this afternoon. She is doing okay. She's had some falls at the rehab unit where she is staying. She says that they have been changing the dressing on the left hip wound about once a day and it has what sounds like some light serous drainage on it. Denies fevers or chills or systemic signs of infection. Left leg wounds dry. sutures and shwetha were removed. Left hip wound dry except for one area where there is a small sinus tract that has developed which I'm sure is the source of the drainage. CT left femur with IM agustín in place and no fluid collections. A/P: Doing okay s/p IM fixation of left hip fracture We talked about options. We will proceed with excision of the sinus tract and washout of the wound and likely closure of the wound in the operating room tomorrow. If there is anything concerning then I will place a wound vac.
[2016-08-14] MEDS: Piperac/Tazob 3.375 gm in NS* 3.375 GM/100 ML BAG IVPB SCH ×3 (04:46→23:39)
[2016-08-14 05:26] LABS: Comments Flag Yes; Hematocrit 21 % (35-47); Hemoglobin 6.8 g/dl (12.0-16.0); Mean Corpuscular HGB Conc 33 g/dl (31-36); Mean Corpuscular Hemoglobin 32 pg (27-31); Mean Corpuscular Volume 97 fL (80-97); Mean Platelet Volume 9 um3 (7.4-10.4); Red Blood Count 2.12 10^6/ul (4.0-5.4); Red Cell Distribution Width 23 % (10.5-15); White Blood Count 6.1 10^3/ul (3.5-10.8)
[2016-08-14 05:43] LABS: Calcium 7.7 mg/dL (8.6-10.3); EGFR African American 47.3 (>60); EGFR Non-African American 36.8 (>60); Potassium 3.2 mmol/L (3.5-5.0)
[2016-08-14 05:51] LABS: Vancomycin Trough 17.1 mcg/mL
--- NOTE | 2016-08-14 05:54 | CONS ---
CONSULTATION REPORT: DATE: 08/13/2016. CHIEF COMPLAINT: Left hip wound drainage. HISTORY: Karie is a 75-year-old female who had left intertroch fracture, underwent intramedullary Gamma nail fixation on 07/09/16. She has a history of liver failure and developed significant anasarca after the first surgery and some acute kidney injury. She was draining fluid from the two most proximal wounds given the extensive third spacing that was occurring. Took her back and washed and closed very tightly the upper leg wound as well as the hip wound. The upper leg wound dried up and closed completely. The hip wound given the fact that it is in the little skin fold and is in difficult area to get heal, it has gone to a little sinus tract. She has been in the rehab facility where she has been getting dressing changes to the wound once daily, she states. She says there is just a little bit of mild drainage on the dressing, but nothing that saturates the sheets or messes the bed. She had some bright red blood out of the rectum and some associated anemia and was brought back to the hospital. She was also having problem, was having some falls in the facility where she was at. She was admitted and CT scan has been done. No fluid collection is seen on the CT scan and intramedullary fixation is in place. PAST MEDICAL HISTORY: All reviewed by me. Significantly, she has nonalcoholic fatty liver disease and cirrhosis secondary to this. She has a history of hepatic encephalopathy and some seizures. PAST SURGICAL HISTORY: All reviewed by me. MEDICATIONS: All reviewed by me. ALLERGIES: All reviewed by me. FAMILY HISTORY: All reviewed by me. SOCIAL HISTORY: All reviewed by me. PHYSICAL EXAM: Two lower wounds are healed. The left hip wound has just one spot where there is a little sinus tract in the mid aspect of the wound. This is almost certainly where the serous drainage is coming from. Nothing looks infected. DIAGNOSTIC STUDIES: Imaging: CT scan of the left leg was reviewed. Hardware stable and looks good. I do not see any fluid collections. IMPRESSION: Persistently draining left hip wound in the setting of severe anasarca and multiple draining wounds, status post Gamma nail fixation of the left hip fracture on July 09. All the other wounds have dried off and closed but the left hip wound continuous to be a problem. PLAN: I talked with the patient. Ultimately, I think the best chance of getting this left hip wound to close is to go back and excise the sinus tract and clean up the wound to see if we can close it one more time. Certainly, when we are in there, I will examine that left hip wound and all the underlying tissue. If there is any concern, I will put a wound VAC on the wound. I will plan on this tomorrow after I finish my normal operating room schedule over at the [facility]. She has been added on to the operating room schedule. I will talk with her family early tomorrow. [id number]/[facility] #: [id number] FEROZ
[2016-08-14] MEDS ORDERED: Vancomycin Trough Check NOTE FOLLOW UP SCH (06:00)
[2016-08-14] MEDS: Vancomycin(*) 1,000 MG in NS 0.9% 250 ML* 250 ML IVPB SCH ×2 (06:08→21:33)
[2016-08-14] MEDS: Multivitamins/Minerals TAB PO SCH (09:23)
[2016-08-14] MEDS: Omeprazole CAP* 20 MG PO SCH ×2 (09:23→21:32)
[2016-08-14] MEDS: Furosemide IV* 10 MG/ML VIAL (40 MG) IV SCH (09:23)
[2016-08-14] MEDS: RiFAXimin* 550 MG TAB PO SCH ×2 (09:23→21:32)
--- NOTE | 2016-08-14 11:56 | PN ---
Progress Note - Progress Note SOAP: Subjective: [Pt is feeling tired and cold today. ] Objective: [General: Pt is alert, oriented and tired appearing. Pt had just awoken. Pt is in no acute distress LLE: Pts Left leg wounds are clean, dry and intact. No drainage apparent. Pts Left hip wound is covered in gauze dressing. The gauze has a mild amount of serosanguineous drainage on it Pt has 2+ pitting edema on the Left Thigh. Pt does have good sensation to light touch in lower extremities. Pt is able to move toes and lift legs. ] Vital Signs Temp 98.5 F 08/14/16 07:43 Pulse 80 08/14/16 07:43 Resp 18 08/14/16 08:00 BP 144/48 08/14/16 07:43 Pulse Ox 94 08/14/16 07:43 Intake & Output 08/13/16 08/14/16 08/14/16 18:59 06:59 18:59 Intake Total 0 800 280 Output Total 500 250 Balance -500 800 30 Intake: IV Fluids 280 ABX - VANCOMYCIN 250 NS (0.9%) 30 Oral 0 800 Output: Urine 500 Liquid Stool 250 Other: Estimated Void Small Large # Bowel Movements 2 2 Estimated Stool Amount Large # Voids 0 2 1 Assessment: [S/P L femur with IM agustín, post washout. ] Plan: [Pt will be taken to the OR this evening for an excision and washout of the Left hip wound. ]
--- NOTE | 2016-08-14 14:43 | PN ---
Subjective Date of Service: 08/14/16 Interval History: Ms. Ford states that she feels tired today but she denies other complaint including chest pain, SOB, nausea, or abdominal pain. Family History: Unchanged from Admission Social History: Unchanged from Admission Past Medical History: Unchanged from Admission Objective Active Medications: Acetaminophen (Tylenol Tab*) 650 mg PO Q4H PRN Device (Nicotine Mouth Piece*) 1 each INH .USE WITH NICOTROL PRN Furosemide (Lasix Iv*) 40 mg IV DAILY RAGHU Piperacillin Sod/Tazobactam Sod (Zosyn 3.375 Gm In Ns Premix*) 3.375 gm in 100 mls @ 25 mls/hr IVPB Q8H RAGHU Vancomycin HCl 1,000 mg/ (Sodium Chloride) 250 mls @ 166.667 mls/hr IVPB Q12H RAGHU Lactulose (Lactulose*) 45 ml PO TID RAGHU Morphine Sulfate (Morphine Inj (Syringe)*) 2 mg IV Q4H PRN Multivitamins/Minerals (Theragran/Minerals Tab*) 1 tab PO DAILY RAGHU Nicotine (Nicotine Inhaler*) 10 mg INH Q2H PRN Omeprazole (Prilosec Cap*) 20 mg PO BID RAGHU Ondansetron HCl (Zofran Inj*) 4 mg IV Q6H PRN Oxycodone/Acetaminophen (Percocet 5/325 Tab*) 1 tab PO Q4H PRN Potassium Chloride (Klor Con Er Tab*) 10 meq PO EVERY OTHER DAY RAGHU Rifaximin (Xifaxan*) 550 mg PO BID RAGHU Spironolactone (Aldactone Tab*) 100 mg PO DAILY@1600 [facility] Vital Signs 08/13/16 08/13/16 08/13/16 15:38 20:00 20:24 Temperature 98.1 F 98.3 F Pulse Rate 92 85 Respiratory 18 17 17 Rate Blood Pressure 134/37 115/49 (mmHg) O2 Sat by Pulse 97 98 Oximetry 08/13/16 08/14/16 08/14/16 23:31 04:37 07:43 Temperature 98.1 F 98.3 F 98.5 F Pulse Rate 86 92 80 Respiratory 16 16 18 Rate Blood Pressure 138/44 114/58 144/48 (mmHg) O2 Sat by Pulse 96 97 94 Oximetry 08/14/16 08/14/16 08:00 12:19 Temperature 99.4 F Pulse Rate 83 Respiratory 18 Rate Blood Pressure 110/41 (mmHg) O2 Sat by Pulse 98 Oximetry Oxygen Devices in Use Now: None Appearance: Elderly female lying in bed in NAD Respiratory: Symmetrical Chest Expansion and Respiratory Effort, Clear to Auscultation Cardiovascular: NL Sounds; No Murmurs; No JVD Abdominal: NL Sounds; No Tenderness; No Distention Extremities: - - +3 edema Skin: No Rash or Ulcers Neurological: Alert and Oriented x 3, NL Muscle Strength and Tone Nutrition: Taking PO's Result Diagrams: 08/14/16 04:37 08/14/16 04:37 Additional Lab and Data: Lab Results 08/11/16 08/11/16 08/11/16 Range/Units 16:50 16:50 16:50 WBC 6.1 (3.5-10.8) 10^3/ul RBC 1.73 L (4.0-5.4) 10^6/ul Hgb 5.8 L* (12.0-16.0) g/dl Hct 18 L (35-47) % MCV 102 H (80-97) fL MCH 34 H (27-31) pg MCHC 33 (31-36) g/dl RDW 25 H (10.5-15) % Plt Count 75 L (150-450) 10^3/ul MPV 10 (7.4-10.4) um3 Neut % (Auto) 60.0 (38-83) % Lymph % (Auto) 15.6 L (25-47) % Tift % (Auto) 22.0 H (1-9) % Eos % (Auto) 1.9 (0-6) % Baso % (Auto) 0.5 (0-2) % Absolute Neuts (auto) 3.7 (1.5-7.7) 10^3/ul Absolute Lymphs (auto) 1.0 (1.0-4.8) 10^3/ul Absolute Monos (auto) 1.3 H (0-0.8) 10^3/ul Absolute Eos (auto) 0.1 (0-0.6) 10^3/ul Absolute Basos (auto) 0 (0-0.2) 10^3/ul Absolute Nucleated RBC 0.01 10^3/ul Nucleated RBC % 0.1 Normal RBC Morphology Not Reportable Polychromasia 1+ Hypochromasia 2+ Microcytosis 1+ Target Cells 1+ INR (Anticoag Therapy) 1.80 H (0.89-1.11) Sodium 135 (133-145) mmol/L Potassium 3.9 (3.5-5.0) mmol/L Chloride 107 (101-111) mmol/L Carbon Dioxide 22 (22-32) mmol/L Anion Gap 6 (2-11) mmol/L BUN 26 H (6-24) mg/dL Creatinine 1.91 H (0.51-0.95) mg/dL Est GFR ( Amer) 33.0 (>60) Est GFR (Non-Af Amer) 25.7 (>60) BUN/Creatinine Ratio 13.6 (8-20) Glucose 119 H (70-100) mg/dL Calcium 7.8 L (8.6-10.3) mg/dL Total Bilirubin 3.60 H (0.2-1.0) mg/dL AST 50 H (13-39) U/L ALT 24 (7-52) U/L Alkaline Phosphatase 127 H (34-104) U/L Ammonia (16-53) mol/L Troponin I 0.06 H* (<0.04) ng/mL C-Reactive Protein 23.80 H (< 5.00) mg/L Total Protein 4.5 L (6.4-8.9) g/dL Albumin 2.1 L (3.2-5.2) g/dL Globulin 2.4 (2-4) g/dL Albumin/Globulin Ratio 0.9 L (1-3) Blood Type Antibody Screen Crossmatch 08/11/16 08/11/16 Range/Units 16:50 16:50 WBC (3.5-10.8) 10^3/ul RBC (4.0-5.4) 10^6/ul Hgb (12.0-16.0) g/dl Hct (35-47) % MCV (80-97) fL MCH (27-31) pg MCHC (31-36) g/dl RDW (10.5-15) % Plt Count (150-450) 10^3/ul MPV (7.4-10.4) um3 Neut % (Auto) (38-83) % Lymph % (Auto) (25-47) % Tift % (Auto) (1-9) % Eos % (Auto) (0-6) % Baso % (Auto) (0-2) % Absolute Neuts (auto) (1.5-7.7) 10^3/ul Absolute Lymphs (auto) (1.0-4.8) 10^3/ul Absolute Monos (auto) (0-0.8) 10^3/ul Absolute Eos (auto) (0-0.6) 10^3/ul Absolute Basos (auto) (0-0.2) 10^3/ul Absolute Nucleated RBC 10^3/ul Nucleated RBC % Normal RBC Morphology Polychromasia Hypochromasia Microcytosis Target Cells INR (Anticoag Therapy) (0.89-1.11) Sodium (133-145) mmol/L Potassium (3.5-5.0) mmol/L Chloride (101-111) mmol/L Carbon Dioxide (22-32) mmol/L Anion Gap (2-11) mmol/L BUN (6-24) mg/dL Creatinine (0.51-0.95) mg/dL Est GFR ( Amer) (>60) Est GFR (Non-Af Amer) (>60) BUN/Creatinine Ratio (8-20) Glucose (70-100) mg/dL Calcium (8.6-10.3) mg/dL Total Bilirubin (0.2-1.0) mg/dL AST (13-39) U/L ALT (7-52) U/L Alkaline Phosphatase (34-104) U/L Ammonia 37 (16-53) mol/L Troponin I (<0.04) ng/mL C-Reactive Protein (< 5.00) mg/L Total Protein (6.4-8.9) g/dL Albumin (3.2-5.2) g/dL Globulin (2-4) g/dL Albumin/Globulin Ratio (1-3) Blood Type A Positive Antibody Screen Negative Crossmatch See Detail Assess/Plan/Problems-Billing Assessment: Mrs. 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 - Patient Problems (1) Anemia Comment: Responded appropriately to 2 units PRBC. Report of BRBPR x 1 and stool occult blood positive but GI sees no convincing evidence of significant bleed, suspect hemorrhoids vs small diverticular bleed. Last colonoscopy 2013. GI does not recommend upper or lower endoscopy at this point. No B12, iron, or folate deficiency. Suspect anemia of chronic illness and cirrhosis. (2) Left hip pain Comment: CT showed proximal femur fracture s/p IF, subcutaneous edema, but no other fluid collections. She has upper and lower extremities edema suggestive of anasarca and not only on her left hip area. Appreciate consult from ortho, plans for OR today to excise and reclose draining sinus tract, possible wound vac. Continue zosyn and vanco for now. (3) Elevated troponin Comment: Peaked at 0.06. Elevated troponin in the setting of significant anemia , suspect demand ischemia. (4) Non-alcoholic cirrhosis Comment: She has significant edema, has gained 20lbs since prior admission - continue Furosemide IV. Daily weights. Ammonia is normal - continue Lactulose and Rifaximin. (5) GERD (gastroesophageal reflux disease) (6) Full code status Comment: Continue omeprazole. (7) DVT prophylaxis Comment: Pharmacological prophylaxis contraindicated in the setting of GI bleed. SCDs. Status and Disposition: Inpatient with expected LOS > 2 days. Return to [facility] when medically stable.
[2016-08-14] MEDS: Spironolactone TAB* 25 MG PO SCH (15:57)
[2016-08-14] MEDS ORDERED: Lidocaine 2% PF* 10 ML AMP ONE (18:13)
[2016-08-14] MEDS ORDERED: fentaNYL* 50 MCG/ML 2 ML VIAL (100 MCG VIAL) ONE ×2 (18:24→19:39)
[2016-08-14] MEDS ORDERED: Phenylephrine IV* 40 MCG/ML 10 ML SYRINGE ONE (18:29)
[2016-08-14] MEDS ORDERED: Propofol* 10 MG/ML 20 ML BTL IV PUSH ONE (18:29)
[2016-08-14] MEDS ORDERED: Ondansetron INJ* 2 MG/ML VIAL ONE (18:46)
[2016-08-14] MEDS ORDERED: DiMENhydriNATE IV* 50 MG/ML VIAL IV PUSH PRN (18:54)
[2016-08-14] MEDS: fentaNYL* 50 MCG/ML 2 ML VIAL (100 MCG VIAL) IV PRN ×4 (19:45→20:09)
[2016-08-14] MEDS ORDERED: HYDROmorphone INJ* 1 MG/ML CARPUJECT SYRINGE ONE (20:13)
[2016-08-15] MEDS: Vancomycin(*) 1,000 MG in NS 0.9% 250 ML* 250 ML IVPB SCH ×2 (06:05→18:36)
[2016-08-15] MEDS: Piperac/Tazob 3.375 gm in NS* 3.375 GM/100 ML BAG IVPB SCH ×3 (06:06→21:18)
[2016-08-15 06:35] LABS: Hematocrit 22 % (35-47); Hemoglobin 7.3 g/dl (12.0-16.0); Mean Corpuscular HGB Conc 33 g/dl (31-36); Mean Corpuscular Hemoglobin 32 pg (27-31); Mean Corpuscular Volume 99 fL (80-97); Mean Platelet Volume 9 um3 (7.4-10.4); Red Blood Count 2.26 10^6/ul (4.0-5.4); White Blood Count 8.5 10^3/ul (3.5-10.8)
[2016-08-15 06:38] LABS: Comments Flag Yes
[2016-08-15 06:39] LABS: Red Cell Distribution Width 24 % (10.5-15)
--- NOTE | 2016-08-15 06:44 | PN ---
Subjective Date of Service: 08/15/16 Interval History: Ms. Ford has no specific complaint today but she feels down about having been ill for so long. She denies chest pain, SOB, nausea, or abdominal pain. She has minimal hip pain at rest. Family History: Unchanged from Admission Social History: Unchanged from Admission Past Medical History: Unchanged from Admission Objective Active Medications: Acetaminophen (Tylenol Tab*) 650 mg PO Q4H PRN Device (Nicotine Mouth Piece*) 1 each INH .USE WITH NICOTROL PRN Furosemide (Lasix Iv*) 40 mg IV DAILY RAGHU Piperacillin Sod/Tazobactam Sod (Zosyn 3.375 Gm In Ns Premix*) 3.375 gm in 100 mls @ 25 mls/hr IVPB Q8H RAGHU Vancomycin HCl 1,000 mg/ (Sodium Chloride) 250 mls @ 166.667 mls/hr IVPB Q12H RAGHU Lactulose (Lactulose*) 45 ml PO TID RAGHU Morphine Sulfate (Morphine Inj (Syringe)*) 2 mg IV Q4H PRN Multivitamins/Minerals (Theragran/Minerals Tab*) 1 tab PO DAILY RAGHU Nicotine (Nicotine Inhaler*) 10 mg INH Q2H PRN Omeprazole (Prilosec Cap*) 20 mg PO BID RAGHU Ondansetron HCl (Zofran Inj*) 4 mg IV Q6H PRN Oxycodone/Acetaminophen (Percocet 5/325 Tab*) 1 tab PO Q4H PRN Potassium Chloride (Klor Con Er Tab*) 10 meq PO EVERY OTHER DAY PENDING SALE TO [facility] Rifaximin (Xifaxan*) 550 mg PO BID RAGHU Spironolactone (Aldactone Tab*) 100 mg PO DAILY@1600 [facility]END[facility] TO [facility] Vital Signs 08/14/16 08/14/16 08/14/16 07:43 08:00 12:19 Temperature 98.5 F 99.4 F Pulse Rate 80 83 Respiratory 18 18 Rate Blood Pressure 144/48 110/41 (mmHg) O2 Sat by Pulse 94 98 Oximetry 08/14/16 08/14/16 08/14/16 12:20 19:37 19:40 Temperature 99.4 F 97.9 F Pulse Rate 83 94 90 Respiratory 18 20 18 Rate Blood Pressure 110/41 118/64 108/51 (mmHg) O2 Sat by Pulse 98 99 98 Oximetry 08/14/16 08/14/16 08/14/16 19:45 19:50 19:58 Temperature Pulse Rate 91 88 Respiratory 20 20 18 Rate Blood Pressure 121/46 121/46 (mmHg) O2 Sat by Pulse 100 100 Oximetry 08/14/16 08/14/16 08/14/16 20:00 20:09 20:15 Temperature 97.2 F Pulse Rate 89 88 Respiratory 16 16 16 Rate Blood Pressure 108/63 118/64 (mmHg) O2 Sat by Pulse 98 98 Oximetry 08/14/16 08/14/16 08/14/16 20:30 20:49 20:50 Temperature Pulse Rate 89 85 Respiratory 16 16 18 Rate Blood Pressure 113/54 128/40 (mmHg) O2 Sat by Pulse 99 97 Oximetry 08/14/16 08/14/16 08/14/16 21:07 21:09 21:10 Temperature 97.4 F Pulse Rate 88 Respiratory 18 18 18 Rate Blood Pressure 137/41 (mmHg) O2 Sat by Pulse 95 Oximetry 08/14/16 08/14/16 08/14/16 21:45 22:08 23:28 Temperature 97.5 F 97.4 F Pulse Rate 89 86 Respiratory 18 18 16 Rate Blood Pressure 125/56 134/52 (mmHg) O2 Sat by Pulse 96 96 Oximetry 08/14/16 08/15/16 08/15/16 23:44 00:00 00:59 Temperature 97.5 F Pulse Rate 87 Respiratory 18 16 Rate Blood Pressure 127/46 (mmHg) O2 Sat by Pulse 96 95 Oximetry 08/15/16 03:46 Temperature 97.6 F Pulse Rate 89 Respiratory 20 Rate Blood Pressure 120/45 (mmHg) O2 Sat by Pulse 96 Oximetry Oxygen Devices in Use Now: None Appearance: Female lying in bed in NAD Respiratory: Symmetrical Chest Expansion and Respiratory Effort, Clear to Auscultation Cardiovascular: NL Sounds; No Murmurs; No JVD Abdominal: NL Sounds; No Tenderness; No Distention Extremities: - - +3 pitting edema up to thigh Skin: No Rash or Ulcers Neurological: Alert and Oriented x 3, NL Muscle Strength and Tone Nutrition: Taking PO's Result Diagrams: 08/15/16 06:16 08/15/16 06:16 Additional Lab and Data: Lab Results 08/11/16 08/11/16 08/11/16 Range/Units 16:50 16:50 16:50 WBC 6.1 (3.5-10.8) 10^3/ul RBC 1.73 L (4.0-5.4) 10^6/ul Hgb 5.8 L* (12.0-16.0) g/dl Hct 18 L (35-47) % MCV 102 H (80-97) fL MCH 34 H (27-31) pg MCHC 33 (31-36) g/dl RDW 25 H (10.5-15) % Plt Count 75 L (150-450) 10^3/ul MPV 10 (7.4-10.4) um3 Neut % (Auto) 60.0 (38-83) % Lymph % (Auto) 15.6 L (25-47) % [place] % (Auto) 22.0 H (1-9) % Eos % (Auto) 1.9 (0-6) % Baso % (Auto) 0.5 (0-2) % Absolute Neuts (auto) 3.7 (1.5-7.7) 10^3/ul Absolute Lymphs (auto) 1.0 (1.0-4.8) 10^3/ul Absolute Monos (auto) 1.3 H (0-0.8) 10^3/ul Absolute Eos (auto) 0.1 (0-0.6) 10^3/ul Absolute Basos (auto) 0 (0-0.2) 10^3/ul Absolute Nucleated RBC 0.01 10^3/ul Nucleated RBC % 0.1 Normal RBC Morphology Not Reportable Polychromasia 1+ Hypochromasia 2+ Microcytosis 1+ Target Cells 1+ INR (Anticoag Therapy) 1.80 H (0.89-1.11) Sodium 135 (133-145) mmol/L Potassium 3.9 (3.5-5.0) mmol/L Chloride 107 (101-111) mmol/L Carbon Dioxide 22 (22-32) mmol/L Anion Gap 6 (2-11) mmol/L BUN 26 H (6-24) mg/dL Creatinine 1.91 H (0.51-0.95) mg/dL Est GFR ( Amer) 33.0 (>60) Est GFR (Non-Af Amer) 25.7 (>60) BUN/Creatinine Ratio 13.6 (8-20) Glucose 119 H (70-100) mg/dL Calcium 7.8 L (8.6-10.3) mg/dL Total Bilirubin 3.60 H (0.2-1.0) mg/dL AST 50 H (13-39) U/L ALT 24 (7-52) U/L Alkaline Phosphatase 127 H (34-104) U/L Ammonia (16-53) mol/L Troponin I 0.06 H* (<0.04) ng/mL C-Reactive Protein 23.80 H (< 5.00) mg/L Total Protein 4.5 L (6.4-8.9) g/dL Albumin 2.1 L (3.2-5.2) g/dL Globulin 2.4 (2-4) g/dL Albumin/Globulin Ratio 0.9 L (1-3) Blood Type Antibody Screen Crossmatch 08/11/16 08/11/16 Range/Units 16:50 16:50 WBC (3.5-10.8) 10^3/ul RBC (4.0-5.4) 10^6/ul Hgb (12.0-16.0) g/dl Hct (35-47) % MCV (80-97) fL MCH (27-31) pg MCHC (31-36) g/dl RDW (10.5-15) % Plt Count (150-450) 10^3/ul MPV (7.4-10.4) um3 Neut % (Auto) (38-83) % Lymph % (Auto) (25-47) % Stephenson % (Auto) (1-9) % Eos % (Auto) (0-6) % Baso % (Auto) (0-2) % Absolute Neuts (auto) (1.5-7.7) 10^3/ul Absolute Lymphs (auto) (1.0-4.8) 10^3/ul Absolute Monos (auto) (0-0.8) 10^3/ul Absolute Eos (auto) (0-0.6) 10^3/ul Absolute Basos (auto) (0-0.2) 10^3/ul Absolute Nucleated RBC 10^3/ul Nucleated RBC % Normal RBC Morphology Polychromasia Hypochromasia Microcytosis Target Cells INR (Anticoag Therapy) (0.89-1.11) Sodium (133-145) mmol/L Potassium (3.5-5.0) mmol/L Chloride (101-111) mmol/L Carbon Dioxide (22-32) mmol/L Anion Gap (2-11) mmol/L BUN (6-24) mg/dL Creatinine (0.51-0.95) mg/dL Est GFR ( Amer) (>60) Est GFR (Non-Af Amer) (>60) BUN/Creatinine Ratio (8-20) Glucose (70-100) mg/dL Calcium (8.6-10.3) mg/dL Total Bilirubin (0.2-1.0) mg/dL AST (13-39) U/L ALT (7-52) U/L Alkaline Phosphatase (34-104) U/L Ammonia 37 (16-53) mol/L Troponin I (<0.04) ng/mL C-Reactive Protein (< 5.00) mg/L Total Protein (6.4-8.9) g/dL Albumin (3.2-5.2) g/dL Globulin (2-4) g/dL Albumin/Globulin Ratio (1-3) Blood Type A Positive Antibody Screen Negative Crossmatch See Detail Microbiology and Other Data: Microbiology 08/15/16 00:36 Nasal Screen MRSA (PCR)(SANDY) - Final Nasal Mrsa Negative 08/14/16 18:30 Wound Gram Stain - Preliminary Wound - Hip Left 08/14/16 18:30 Wound Gram Stain - Preliminary Wound - Hip Left 08/14/16 18:30 Gram Stain - Preliminary Hip Left Assess/Plan/Problems-Billing Assessment: Mrs. 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 - Patient Problems (1) Left hip pain Comment: POD # 1 s/p closure of sinus tract to left hip. Continue zosyn and vanco for now. Wound culture NGTD. (2) Anemia Comment: H/H stable after 2 units PRBC. Suspect anemia of chronic illness and cirrhosis. Report of BRBPR x 1 and stool occult blood positive but GI sees no convincing evidence of significant bleed, suspect hemorrhoids vs small diverticular bleed. Last colonoscopy 2013. GI does not recommend upper or lower endoscopy at this point. No B12, iron, or folate deficiency. (3) Elevated troponin Comment: Peaked at 0.06. Elevated troponin in the setting of significant anemia , suspect demand ischemia. (4) Non-alcoholic cirrhosis Comment: She has significant edema, has gained 20lbs since prior admission. Suspect related to low protein stores, start ensure and continue Furosemide IV. Daily weights. Ammonia is normal - continue Lactulose and Rifaximin. (5) GERD (gastroesophageal reflux disease) (6) Full code status Comment: Continue omeprazole. (7) DVT prophylaxis Comment: Pharmacological prophylaxis contraindicated in the setting of GI bleed. SCDs. Status and Disposition: Inpatient with expected LOS > 2 days. Return to [facility] when medically stable.
[2016-08-15 06:45] LABS: BUN/Creatinine Ratio 15.6 (8-20); Calcium 7.7 mg/dL (8.6-10.3); EGFR African American 52.4 (>60); EGFR Non-African American 40.8 (>60); Potassium 3.3 mmol/L (3.5-5.0)
--- NOTE | 2016-08-15 09:05 | PN ---
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 Patient resting comfortable, no complaints, no pain overnight , VSS. Objective: General- Well appearing, NAD MSK- Dressing intact, minimal drainage noted posteriorly, dressing re-secured posteriorly, minimal erythema, + blanching, no warmth, non-tender to light touch. Vital Signs Temp 97.7 F 08/15/16 07:21 Pulse 84 08/15/16 07:21 Resp 12 08/15/16 07:21 BP 118/37 08/15/16 07:21 Pulse Ox 99 08/15/16 07:21 Intake & Output 08/14/16 08/15/16 08/15/16 18:59 06:59 18:59 Intake Total 280 1032 Output Total 450 250 Balance -170 782 Weight 198 lb 12.8 oz Intake: IV Fluids 280 610 ABX - VANCOMYCIN 250 NS (0.9%) 30 60 lr 550 IVPB 272 ABX - VANCOMYCIN 165 Zosyn 107 Oral 150 Output: Urine 200 250 Liquid Stool 250 Other: Estimated Void Medium Medium # Bowel Movements 4 Estimated Stool Amount Medium # Voids 2 1 Active Medications Generic Name Dose Route Start Last Admin Trade Name Freq PRN Reason Stop Dose Admin Acetaminophen 650 mg 08/11/16 20:25 Tylenol Tab* PO Q4H PRN PAIN Device 1 each 08/13/16 21:41 Nicotine Mouth Piece* INH .USE WITH NICOTROL PRN CRAVING Furosemide 40 mg 08/13/16 09:00 08/14/16 09:23 Lasix Iv* IV 40 mg DAILY RAGHU Administration Piperacillin Sod/Tazobactam Sod 3.375 gm in 100 mls @ 25 mls/hr 08/12/16 21: 30 08/15/16 06:06 Zosyn 3.375 Gm In Ns Premix* IVPB 25 mls/hr Q8H RAGHU Administration Vancomycin HCl 1,000 mg/ 250 mls @ 166.667 mls/hr 08/13/16 06:30 08/15/16 06: 05 Sodium Chloride IVPB 166.667 mls/hr Q12H RAGHU Administration Lactulose 45 ml 08/11/16 21:00 08/14/16 21:32 Lactulose* PO 45 ml TID RAGHU Administration Morphine Sulfate 2 mg 08/11/16 20:25 08/11/16 20:49 Morphine Inj (Syringe)* IV 2 mg Q4H PRN Administration PAIN - MILD Multivitamins/Minerals 1 tab 08/12/16 09:00 08/14/16 09:23 Theragran/Minerals Tab* PO 1 tab DAILY RAGHU Administration Nicotine 10 mg 08/13/16 21:41 Nicotine Inhaler* INH Q2H PRN CRAVING Omeprazole 20 mg 08/11/16 21:00 08/14/16 21:32 Prilosec Cap* PO 20 mg BID RAGHU Administration Ondansetron HCl 4 mg 08/11/16 20:25 Zofran Inj* IV Q6H PRN NAUSEA Oxycodone/Acetaminophen 1 tab 08/11/16 20:33 Percocet 5/325 Tab* PO Q4H PRN PAIN Pharmacy Profile Note 1 note 08/16/16 06:15 Vancomycin Trough Check FOLLOW UP 08/16/16 06:16 0600 ONE Potassium Chloride 10 meq 08/13/16 09:00 08/13/16 08:53 Klor Con Er Tab* PO 10 meq EVERY OTHER DAY [facility] Administration Rifaximin 550 mg 08/11/16 21:00 08/14/16 21:32 Xifaxan* PO 550 mg BID [facility] Administration Spironolactone 100 mg 08/13/16 16:00 08/14/16 15:57 Aldactone Tab* PO Not Given DAILY@1600 [facility] Laboratory Results - last 24 hr 08/15/16 08/15/16 06:16 06:16 WBC 8.5 RBC 2.26 L Hgb 7.3 L Hct 22 L MCV 99 H MCH 32 H MCHC 33 RDW 24 H Plt Count 73 L MPV 9 Neut % (Auto) 64.3 Lymph % (Auto) 14.7 L [place] % (Auto) 17.7 H Eos % (Auto) 2.6 Baso % (Auto) 0.7 Absolute Neuts (auto) 5.5 Absolute Lymphs (auto) 1.3 Absolute Monos (auto) 1.5 H Absolute Eos (auto) 0.2 Absolute Basos (auto) 0.1 Absolute Nucleated RBC 0.01 Nucleated RBC % 0.1 Sodium 138 Potassium 3.3 L Chloride 108 Carbon Dioxide 24 Anion Gap 6 BUN 20 Creatinine 1.28 H Est GFR ( Amer) 52.4 Est GFR (Non-Af Amer) 40.8 BUN/Creatinine Ratio 15.6 Glucose 90 Calcium 7.7 L Assessment: POD#1 s/p sinus tract excision L hip Plan: - Continue to monitor wound site. - Appreciate hospitalist input, continue diuresis. - Cultures pending- continue ABX
[2016-08-15] MEDS: Omeprazole CAP* 20 MG PO SCH ×2 (11:02→21:15)
[2016-08-15] MEDS: Furosemide IV* 10 MG/ML VIAL (40 MG) IV SCH (11:02)
[2016-08-15] MEDS: Potassium Chlor TAB* 10 MEQ TAB.ER PO SCH (11:02)
[2016-08-15] MEDS: Multivitamins/Minerals TAB PO SCH (11:02)
[2016-08-15] MEDS: RiFAXimin* 550 MG TAB PO SCH ×2 (11:02→21:15)
[2016-08-15] MEDS: Morphine INJ* 2 MG/ML 1 ML CARPUJECT IV PRN (14:06)
[2016-08-15] MEDS: Spironolactone TAB* 25 MG PO SCH (16:10)
--- NOTE | 2016-08-15 17:20 | OP ---
OPERATIVE SUMMARY: DATE OF OPERATION: 08/14/16 DATE OF : 42 SURGEON: Edward Rizzo MD COIL MAKER: DAVIS Estrella. ANESTHESIOLOGIST: Dr. Archer. ANESTHESIA: General. PRE-OP DIAGNOSIS: Persistently draining left hip wound, status post left hip gamma nail, 07/09/16. POST-OP DIAGNOSIS: Persistently draining left hip wound, status post left hip gamma nail, 07/09/16. OPERATIVE PROCEDURE: Irrigation and debridement and excision of subcutaneous sinus tract, left hip wound with closure of wound. INDICATIONS: Karie is a 75-year-old female who underwent an uneventful left hip gamma nailing back on 07/09/16. She has liver failure and developed extreme anasarca postoperatively as well as a damaris le bit of acute kidney injury. She is malnourished. She was so edematous that she kept draining fr om both of her 2 proximal wounds. She came back to the operating room a week after surgery and wash ed everything out, nothing looked infected and so we closed the wound. The proximal thigh wound kassy sed and stopped draining but the left hip wound developed just a small sinus tract and continued to drain. She was discharged and went to a retirement facility and was readmitted with a GI bleed . I was consulted for the evaluation of the left hip wound as she had about just a very small amoun t of serous drainage over a 24-hour period daily. I spoke with Karie and her family and we talked a bout cleaning out the wound to see if we can get it to close. I did tell them that there is a chanc e that this could be infected. If I saw anything questionable during the surgery, I would place a w ound VAC. Ultimately, I did tell them that if it is infected and I close the wound, she could eithe r continue to drain or start draining again or she could develop a deeper infection that could cause some systemic problems and therefore, if I saw anything that was questionable during the surgery, I would go ahead and leave the wound open and put a VAC on it. They understood and they wished to pro ceed. EBL: 50 mL. COMPLICATIONS: None. FINDINGS: There was a sinus tract that was an extension from the skin lesion. This tracked down int o the subcutaneous tissue but I could not probe it down deep to bone. After excising the tract, I s till could not get down deep to the bone. There was no purulence or murkiness encountered throughout the surgery. DESCRIPTION OF PROCEDURE: Karie was seen in the preoperative holding area and the correct site and side were marked. He came back to the operating room where general anesthesia was induced and she w as placed in a floppy lateral position. The area was cleansed with Betadine and we then prepped and draped out the wound. A formal time-out was performed. The prior incision and the cutaneous tract was excised and was ellipsed out in its entirety. Dissec tion was carried down through the subcutaneous tissue. There was a sinus tract. It was identified in the subcutaneous tissue. I probed it and it stopped about 4 or 5 cm deep. I went ahead and exci sed the sinus tract with a 10 blade and it stopped deep in the subcutaneous tissue. I could not pro be down to the bone. There was no purulence encountered. There was no murkiness encountered. I did go ahead and take several cultures from the sinus tract and I would send a couple of tissue culture s as well from the involved area. I then went ahead and irrigated the wound with 6 L of warm steril e saline. Everything looked completely clean, so I closed the subcutaneous tissue deeply with some 2-0 PDS suture. I then closed this in a couple of layers until the dermis was approximated with kady e 2-0 PDS suture. I then put some 0 Prolene sutures in to take the tension off the skin wound. The skin was then opposed with 3-0 simple interrupted nylon sutures. Prior to closing the wound, hemos tasis had been obtained with the use of the Bovie cautery. I then went ahead and got the skin compl etely clean and dry and then placed a piece of Xeroform, some 4x4s and some foam tape and a little b it of a pressure dressing over the wound. She was then woken back up and taken to the recovery room in stable condition. POSTOPERATIVE PLAN: I am going to keep an eye on the cultures. I have spoken with both her son and her sister. If the cultures come back positive or if there is any evidence of infection, we will h ave to take her back and open the wound and put a wound VAC and consult with Infectious Disease and have a discussion about our best course of action from that point, but I am optimistic that we have a chance here to get this wound closed and dried up and ultimately that would be the best thing for her, so I am hoping that is what happens but certainly we will be prepared to intervene in the futur e if it is needed. [id number]/[facility] #: [id number]
[2016-08-15] MEDS: oxyCODONE/Acetamin 5/325 MG* TAB PO PRN (19:24)
[2016-08-16] MEDS: Piperac/Tazob 3.375 gm in NS* 3.375 GM/100 ML BAG IVPB SCH ×2 (05:39→13:57)
[2016-08-16] MEDS ORDERED: Vancomycin Trough Check NOTE FOLLOW UP ONE (06:15)
[2016-08-16] MEDS: Vancomycin(*) 1,000 MG in NS 0.9% 250 ML* 250 ML IVPB SCH (07:51)
[2016-08-16 07:56] LABS: Vancomycin Trough 23.4 mcg/mL
[2016-08-16] MEDS: Multivitamins/Minerals TAB PO SCH (08:15)
[2016-08-16] MEDS: RiFAXimin* 550 MG TAB PO SCH ×2 (08:15→21:38)
[2016-08-16] MEDS: Furosemide IV* 10 MG/ML VIAL (40 MG) IV SCH (08:16)
[2016-08-16] MEDS: Omeprazole CAP* 20 MG PO SCH ×2 (08:16→21:38)
[2016-08-16 08:33] LABS: BUN/Creatinine Ratio 14.2 (8-20); Calcium 7.4 mg/dL (8.6-10.3); EGFR African American 49.7 (>60); EGFR Non-African American 38.7 (>60)
[2016-08-16 08:39] LABS: Potassium 3.4 mmol/L (3.5-5.0)
--- NOTE | 2016-08-16 09:01 | PN ---
Progress Note - Progress Note SOAP: Subjective: [75 y/o female s/p Left hip IF with wound revision (07/09 and 07/16), admitted 08/14 with wound drainage, s/p excision sinus tract L hip 08/14/2016. Pt states she is feeling better but is unhappy to be here. Pt removed SCDs last night due to them being uncomfortable to wear. VSS] Objective: [General: alert, awake and oriented, No acute distress LLE: Wound on thigh dressing is c/d/i. 2+ pitting edema present. Pt has sensation to light touch grossly intact. Vital Signs Temp 97.5 F 08/16/16 07:35 Pulse 82 08/16/16 07:35 Resp 18 08/16/16 08:00 BP 118/37 08/16/16 07:35 Pulse Ox 92 08/16/16 08:00 Intake & Output 08/15/16 08/16/16 08/16/16 18:59 06:59 18:59 Intake Total 1414 1020 Output Total 500 Balance 1414 520 Weight 143 lb 3.2 oz Intake: IV Fluids 244 20 NS (0.9%) 32 20 Zosyn 212 IVPB 350 370 ABX - VANCOMYCIN 250 270 Zosyn 100 100 Oral 820 630 Output: Urine 500 Other: Estimated Void Large Small Date of Last Bowel 08/15/16 Movement # Bowel Movements 1 3 Estimated Stool Amount Medium Medium # Voids 1 2 Microbiology 08/14/16 18:30 Wound Gram Stain - Final Wound - Hip Left Tissue Culture - Preliminary No Growth Day 1 08/14/16 18:30 Wound Gram Stain - Final Wound - Hip Left Tissue Culture - Preliminary No Growth Day 1 Anaerobic Culture - Preliminary No Growth Day 1 08/14/16 18:30 Gram Stain - Final Hip Left Wound Culture - Preliminary No Growth Day 1 08/15/16 00:36 Nasal Screen MRSA (PCR)(SANDY) - Final Nasal Mrsa Negative 08/11/16 18:30 Stool Gross Appearance - Final Stool Stool Occult Blood (SANDY) - Final ] Assessment: [POD #2 sinus tract excision of the L hip and washout.] Plan: [continue to monitor around wound Continue abx - cultures pending Continue hospitalists plan for diuresis ] <Greyson Negron - Last Filed: 08/16/16 08:55> - Progress Note SOAP: Subjective: [] Objective: [] Assessment: [] Plan: [] <Edward Rizzo - Last Filed: 08/16/16 11:37>
--- NOTE | 2016-08-16 11:36 | PN ---
Progress Note - Progress Note Note: Doing well. Dressing changed Dressings with some SS drainage. When dressing taken down wound was dry and had the appearance of healing. No foul smell. No other signs of infections. Cultures including 2 deep tissue cultures from the involved area were negative although she was on vanc and zosyn for a couple of days before surgery. A/P: I will continue to monitor the wound. I am optimistic that it will close up but there remains a possibility that it will not and further intervention will be needed. We could not probe down to bone during the surgery and she is not having much rest pain so I am do not think that there is no hardware infection although this can not definitively be excluded. We will have to wait to see how she does to know for sure.
[2016-08-16] MEDS: oxyCODONE/Acetamin 5/325 MG* TAB PO PRN (13:56)
[2016-08-16] MEDS ORDERED: Furosemide IV* 10 MG/ML VIAL (40 MG) IV ONE (14:00)
--- NOTE | 2016-08-16 14:51 | PN ---
Subjective Date of Service: 08/16/16 Family History: Unchanged from Admission Social History: Unchanged from Admission Past Medical History: Unchanged from Admission Objective Active Medications: Acetaminophen (Tylenol Tab*) 650 mg PO Q4H PRN Device (Nicotine Mouth Piece*) 1 each INH .USE WITH NICOTROL PRN Furosemide (Lasix Iv*) 40 mg IV DAILY [facility] Furosemide (Lasix Iv*) 40 mg IV ONCE ONE Lactulose (Lactulose*) 45 ml PO TID [facility] Morphine Sulfate (Morphine Inj (Syringe)*) 2 mg IV Q4H PRN Multivitamins/Minerals (Theragran/Minerals Tab*) 1 tab PO DAILY [facility] Nicotine (Nicotine Inhaler*) 10 mg INH Q2H PRN Omeprazole (Prilosec Cap*) 20 mg PO BID [facility] Ondansetron HCl (Zofran Inj*) 4 mg IV Q6H PRN Oxycodone/Acetaminophen (Percocet 5/325 Tab*) 1 tab PO Q4H PRN Pharmacy Profile Note (Vancomycin Trough Check) 1 note FOLLOW UP 0830 ONE Potassium Chloride (Klor Con Er Tab*) 10 meq PO EVERY OTHER DAY [facility] Rifaximin (Xifaxan*) 550 mg PO BID [facility] Spironolactone (Aldactone Tab*) 100 mg PO DAILY@1600 [facility] Vital Signs 08/15/16 08/15/16 08/15/16 15:06 15:51 16:04 Temperature 97.9 F Pulse Rate 85 85 Respiratory 20 16 Rate Blood Pressure 113/34 121/37 (mmHg) O2 Sat by Pulse 93 Oximetry 08/15/16 08/15/16 08/15/16 19:24 19:45 20:00 Temperature 97.9 F Pulse Rate 86 Respiratory 17 16 17 Rate Blood Pressure 108/47 (mmHg) O2 Sat by Pulse 94 Oximetry 08/15/16 08/15/16 08/16/16 21:24 23:38 03:39 Temperature 98.2 F 97.7 F Pulse Rate 80 83 Respiratory 17 16 16 Rate Blood Pressure 119/35 120/45 (mmHg) O2 Sat by Pulse 94 95 Oximetry 08/16/16 08/16/16 08/16/16 07:35 08:00 13:56 Temperature 97.5 F Pulse Rate 82 Respiratory 18 18 18 Rate Blood Pressure 118/37 (mmHg) O2 Sat by Pulse 92 92 Oximetry Oxygen Devices in Use Now: None Result Diagrams: 08/15/16 06:16 08/16/16 06:56 Additional Lab and Data: Lab Results 08/11/16 08/11/16 08/11/16 Range/Units 16:50 16:50 16:50 WBC 6.1 (3.5-10.8) 10^3/ul RBC 1.73 L (4.0-5.4) 10^6/ul Hgb 5.8 L* (12.0-16.0) g/dl Hct 18 L (35-47) % MCV 102 H (80-97) fL MCH 34 H (27-31) pg MCHC 33 (31-36) g/dl RDW 25 H (10.5-15) % Plt Count 75 L (150-450) 10^3/ul MPV 10 (7.4-10.4) um3 Neut % (Auto) 60.0 (38-83) % Lymph % (Auto) 15.6 L (25-47) % [place] % (Auto) 22.0 H (1-9) % Eos % (Auto) 1.9 (0-6) % Baso % (Auto) 0.5 (0-2) % Absolute Neuts (auto) 3.7 (1.5-7.7) 10^3/ul Absolute Lymphs (auto) 1.0 (1.0-4.8) 10^3/ul Absolute Monos (auto) 1.3 H (0-0.8) 10^3/ul Absolute Eos (auto) 0.1 (0-0.6) 10^3/ul Absolute Basos (auto) 0 (0-0.2) 10^3/ul Absolute Nucleated RBC 0.01 10^3/ul Nucleated RBC % 0.1 Normal RBC Morphology Not Reportable Polychromasia 1+ Hypochromasia 2+ Microcytosis 1+ Target Cells 1+ INR (Anticoag Therapy) 1.80 H (0.89-1.11) Sodium 135 (133-145) mmol/L Potassium 3.9 (3.5-5.0) mmol/L Chloride 107 (101-111) mmol/L Carbon Dioxide 22 (22-32) mmol/L Anion Gap 6 (2-11) mmol/L BUN 26 H (6-24) mg/dL Creatinine 1.91 H (0.51-0.95) mg/dL Est GFR ( Amer) 33.0 (>60) Est GFR (Non-Af Amer) 25.7 (>60) BUN/Creatinine Ratio 13.6 (8-20) Glucose 119 H (70-100) mg/dL Calcium 7.8 L (8.6-10.3) mg/dL Total Bilirubin 3.60 H (0.2-1.0) mg/dL AST 50 H (13-39) U/L ALT 24 (7-52) U/L Alkaline Phosphatase 127 H (34-104) U/L Ammonia (16-53) mol/L Troponin I 0.06 H* (<0.04) ng/mL C-Reactive Protein 23.80 H (< 5.00) mg/L Total Protein 4.5 L (6.4-8.9) g/dL Albumin 2.1 L (3.2-5.2) g/dL Globulin 2.4 (2-4) g/dL Albumin/Globulin Ratio 0.9 L (1-3) Blood Type Antibody Screen Crossmatch 08/11/16 08/11/16 Range/Units 16:50 16:50 WBC (3.5-10.8) 10^3/ul RBC (4.0-5.4) 10^6/ul Hgb (12.0-16.0) g/dl Hct (35-47) % MCV (80-97) fL MCH (27-31) pg MCHC (31-36) g/dl RDW (10.5-15) % Plt Count (150-450) 10^3/ul MPV (7.4-10.4) um3 Neut % (Auto) (38-83) % Lymph % (Auto) (25-47) % Yell % (Auto) (1-9) % Eos % (Auto) (0-6) % Baso % (Auto) (0-2) % Absolute Neuts (auto) (1.5-7.7) 10^3/ul Absolute Lymphs (auto) (1.0-4.8) 10^3/ul Absolute Monos (auto) (0-0.8) 10^3/ul Absolute Eos (auto) (0-0.6) 10^3/ul Absolute Basos (auto) (0-0.2) 10^3/ul Absolute Nucleated RBC 10^3/ul Nucleated RBC % Normal RBC Morphology Polychromasia Hypochromasia Microcytosis Target Cells INR (Anticoag Therapy) (0.89-1.11) Sodium (133-145) mmol/L Potassium (3.5-5.0) mmol/L Chloride (101-111) mmol/L Carbon Dioxide (22-32) mmol/L Anion Gap (2-11) mmol/L BUN (6-24) mg/dL Creatinine (0.51-0.95) mg/dL Est GFR ( Amer) (>60) Est GFR (Non-Af Amer) (>60) BUN/Creatinine Ratio (8-20) Glucose (70-100) mg/dL Calcium (8.6-10.3) mg/dL Total Bilirubin (0.2-1.0) mg/dL AST (13-39) U/L ALT (7-52) U/L Alkaline Phosphatase (34-104) U/L Ammonia 37 (16-53) mol/L Troponin I (<0.04) ng/mL C-Reactive Protein (< 5.00) mg/L Total Protein (6.4-8.9) g/dL Albumin (3.2-5.2) g/dL Globulin (2-4) g/dL Albumin/Globulin Ratio (1-3) Blood Type A Positive Antibody Screen Negative Crossmatch See Detail Microbiology and Other Data: Microbiology 08/15/16 00:36 Nasal Screen MRSA (PCR)(SANDY) - Final Nasal Mrsa Negative 08/14/16 18:30 Wound Gram Stain - Preliminary Wound - Hip Left 08/14/16 18:30 Wound Gram Stain - Preliminary Wound - Hip Left 08/14/16 18:30 Gram Stain - Preliminary Hip Left Assess/Plan/Problems-Billing Assessment: Mrs. 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 - Patient Problems (1) Left hip pain Comment: POD # 2 s/p closure of sinus tract to left hip. Wound culture NGTD. CRP 22. No leukocytosis or fever. Very low suspicion of infection. Stop antibiotics and monitor closely. (2) Anemia Comment: H/H stable after 2 units PRBC. Suspect anemia of chronic illness and cirrhosis. Report of BRBPR x 1 and stool occult blood positive but GI sees no convincing evidence of significant bleed, suspect hemorrhoids vs small diverticular bleed. Last colonoscopy 2013. GI does not recommend upper or lower endoscopy at this point. No B12, iron, or folate deficiency. (3) Elevated troponin Comment: Peaked at 0.06. Elevated troponin in the setting of significant anemia , suspect demand ischemia. (4) Non-alcoholic cirrhosis Comment: She has significant edema, has gained 20lbs since prior admission. Suspect related to low protein stores, start ensure and continue Furosemide IV BID but monitor Cr closely. Daily weights. Ammonia is normal - continue Lactulose and Rifaximin. (5) Full code status Comment: Continue omeprazole. (6) DVT prophylaxis Comment: Pharmacological prophylaxis contraindicated in the setting of GI bleed. SCDs. Status and Disposition: Inpatient with expected LOS > 2 days. Return to [facility] when medically stable.
--- NOTE | 2016-08-16 15:03 | PN ---
Subjective Date of Service: 08/16/16 Interval History: Ms. Ford continues to only complain that she feels tired. She denies chest pain, SOB, nausea, or abdominal pain. Family History: Unchanged from Admission Social History: Unchanged from Admission Past Medical History: Unchanged from Admission Objective Active Medications: Acetaminophen (Tylenol Tab*) 650 mg PO Q4H PRN PRN Reason: PAIN Device (Nicotine Mouth Piece*) 1 each INH .USE WITH NICOTROL PRN PRN Reason: CRAVING Furosemide (Lasix Iv*) 40 mg IV DAILY [facility] Last Admin: 08/16/16 08:16 Dose: 40 mg Furosemide (Lasix Iv*) 40 mg IV ONCE ONE Stop: 08/17/16 14:47 Lactulose (Lactulose*) 45 ml PO TID [facility] Last Admin: 08/16/16 13:56 Dose: 30 ml Morphine Sulfate (Morphine Inj (Syringe)*) 2 mg IV Q4H PRN PRN Reason: PAIN - MILD Last Admin: 08/15/16 14:06 Dose: 2 mg Multivitamins/Minerals (Theragran/Minerals Tab*) 1 tab PO DAILY [facility] Last Admin: 08/16/16 08:15 Dose: 1 tab Nicotine (Nicotine Inhaler*) 10 mg INH Q2H PRN PRN Reason: CRAVING Omeprazole (Prilosec Cap*) 20 mg PO BID [facility] Last Admin: 08/16/16 08:16 Dose: 20 mg Ondansetron HCl (Zofran Inj*) 4 mg IV Q6H PRN PRN Reason: NAUSEA Oxycodone/Acetaminophen (Percocet 5/325 Tab*) 1 tab PO Q4H PRN PRN Reason: PAIN Last Admin: 08/16/16 13:56 Dose: 1 tab Pharmacy Profile Note (Vancomycin Trough Check) 1 note FOLLOW UP 0830 ONE Stop: 08/18/16 08:31 Potassium Chloride (Klor Con Er Tab*) 10 meq PO EVERY OTHER DAY [facility] Last Admin: 08/15/16 11:02 Dose: 10 meq Rifaximin (Xifaxan*) 550 mg PO BID [facility] Last Admin: 08/16/16 08:15 Dose: 550 mg Spironolactone (Aldactone Tab*) 100 mg PO DAILY@1600 [facility] Last Admin: 08/15/16 16:10 Dose: 100 mg Vital Signs 08/15/16 08/15/16 08/15/16 15:06 15:51 16:04 Temperature 97.9 F Pulse Rate 85 85 Respiratory 20 16 Rate Blood Pressure 113/34 121/37 (mmHg) O2 Sat by Pulse 93 Oximetry 08/15/16 08/15/16 08/15/16 19:24 19:45 20:00 Temperature 97.9 F Pulse Rate 86 Respiratory 17 16 17 Rate Blood Pressure 108/47 (mmHg) O2 Sat by Pulse 94 Oximetry 08/15/16 08/15/16 08/16/16 21:24 23:38 03:39 Temperature 98.2 F 97.7 F Pulse Rate 80 83 Respiratory 17 16 16 Rate Blood Pressure 119/35 120/45 (mmHg) O2 Sat by Pulse 94 95 Oximetry 08/16/16 08/16/16 08/16/16 07:35 08:00 13:56 Temperature 97.5 F Pulse Rate 82 Respiratory 18 18 18 Rate Blood Pressure 118/37 (mmHg) O2 Sat by Pulse 92 92 Oximetry Oxygen Devices in Use Now: None Appearance: Elderly female lying in bed in NAD Respiratory: Symmetrical Chest Expansion and Respiratory Effort, Clear to Auscultation Cardiovascular: NL Sounds; No Murmurs; No JVD, No Edema - +3 pitting edema Abdominal: NL Sounds; No Tenderness; No Distention Extremities: - - +3 pitting edema Skin: - Neurological: Alert and Oriented x 3, NL Muscle Strength and Tone Result Diagrams: 08/15/16 06:16 08/16/16 06:56 Additional Lab and Data: Lab Results 08/11/16 08/11/16 08/11/16 Range/Units 16:50 16:50 16:50 WBC 6.1 (3.5-10.8) 10^3/ul RBC 1.73 L (4.0-5.4) 10^6/ul Hgb 5.8 L* (12.0-16.0) g/dl Hct 18 L (35-47) % MCV 102 H (80-97) fL MCH 34 H (27-31) pg MCHC 33 (31-36) g/dl RDW 25 H (10.5-15) % Plt Count 75 L (150-450) 10^3/ul MPV 10 (7.4-10.4) um3 Neut % (Auto) 60.0 (38-83) % Lymph % (Auto) 15.6 L (25-47) % [place] % (Auto) 22.0 H (1-9) % Eos % (Auto) 1.9 (0-6) % Baso % (Auto) 0.5 (0-2) % Absolute Neuts (auto) 3.7 (1.5-7.7) 10^3/ul Absolute Lymphs (auto) 1.0 (1.0-4.8) 10^3/ul Absolute Monos (auto) 1.3 H (0-0.8) 10^3/ul Absolute Eos (auto) 0.1 (0-0.6) 10^3/ul Absolute Basos (auto) 0 (0-0.2) 10^3/ul Absolute Nucleated RBC 0.01 10^3/ul Nucleated RBC % 0.1 Normal RBC Morphology Not Reportable Polychromasia 1+ Hypochromasia 2+ Microcytosis 1+ Target Cells 1+ INR (Anticoag Therapy) 1.80 H (0.89-1.11) Sodium 135 (133-145) mmol/L Potassium 3.9 (3.5-5.0) mmol/L Chloride 107 (101-111) mmol/L Carbon Dioxide 22 (22-32) mmol/L Anion Gap 6 (2-11) mmol/L BUN 26 H (6-24) mg/dL Creatinine 1.91 H (0.51-0.95) mg/dL Est GFR ( Amer) 33.0 (>60) Est GFR (Non-Af Amer) 25.7 (>60) BUN/Creatinine Ratio 13.6 (8-20) Glucose 119 H (70-100) mg/dL Calcium 7.8 L (8.6-10.3) mg/dL Total Bilirubin 3.60 H (0.2-1.0) mg/dL AST 50 H (13-39) U/L ALT 24 (7-52) U/L Alkaline Phosphatase 127 H (34-104) U/L Ammonia (16-53) mol/L Troponin I 0.06 H* (<0.04) ng/mL C-Reactive Protein 23.80 H (< 5.00) mg/L Total Protein 4.5 L (6.4-8.9) g/dL Albumin 2.1 L (3.2-5.2) g/dL Globulin 2.4 (2-4) g/dL Albumin/Globulin Ratio 0.9 L (1-3) Blood Type Antibody Screen Crossmatch 08/11/16 08/11/16 Range/Units 16:50 16:50 WBC (3.5-10.8) 10^3/ul RBC (4.0-5.4) 10^6/ul Hgb (12.0-16.0) g/dl Hct (35-47) % MCV (80-97) fL MCH (27-31) pg MCHC (31-36) g/dl RDW (10.5-15) % Plt Count (150-450) 10^3/ul MPV (7.4-10.4) um3 Neut % (Auto) (38-83) % Lymph % (Auto) (25-47) % [place] % (Auto) (1-9) % Eos % (Auto) (0-6) % Baso % (Auto) (0-2) % Absolute Neuts (auto) (1.5-7.7) 10^3/ul Absolute Lymphs (auto) (1.0-4.8) 10^3/ul Absolute Monos (auto) (0-0.8) 10^3/ul Absolute Eos (auto) (0-0.6) 10^3/ul Absolute Basos (auto) (0-0.2) 10^3/ul Absolute Nucleated RBC 10^3/ul Nucleated RBC % Normal RBC Morphology Polychromasia Hypochromasia Microcytosis Target Cells INR (Anticoag Therapy) (0.89-1.11) Sodium (133-145) mmol/L Potassium (3.5-5.0) mmol/L Chloride (101-111) mmol/L Carbon Dioxide (22-32) mmol/L Anion Gap (2-11) mmol/L BUN (6-24) mg/dL Creatinine (0.51-0.95) mg/dL Est GFR ( Amer) (>60) Est GFR (Non-Af Amer) (>60) BUN/Creatinine Ratio (8-20) Glucose (70-100) mg/dL Calcium (8.6-10.3) mg/dL Total Bilirubin (0.2-1.0) mg/dL AST (13-39) U/L ALT (7-52) U/L Alkaline Phosphatase (34-104) U/L Ammonia 37 (16-53) mol/L Troponin I (<0.04) ng/mL C-Reactive Protein (< 5.00) mg/L Total Protein (6.4-8.9) g/dL Albumin (3.2-5.2) g/dL Globulin (2-4) g/dL Albumin/Globulin Ratio (1-3) Blood Type A Positive Antibody Screen Negative Crossmatch See Detail Microbiology and Other Data: Microbiology 08/15/16 00:36 Nasal Screen MRSA (PCR)(SANDY) - Final Nasal Mrsa Negative 08/14/16 18:30 Wound Gram Stain - Preliminary Wound - Hip Left 08/14/16 18:30 Wound Gram Stain - Preliminary Wound - Hip Left 08/14/16 18:30 Gram Stain - Preliminary Hip Left Assess/Plan/Problems-Billing Assessment: Mrs. 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 - Patient Problems (1) Left hip pain Comment: POD # 2 s/p closure of sinus tract to left hip. Wound culture NGTD. CRP 22. No leukocytosis or fever. Very low suspicion of infection. Stop antibiotics and monitor closely. (2) Anemia Comment: H/H stable after 2 units PRBC. Suspect anemia of chronic illness and cirrhosis. Report of BRBPR x 1 and stool occult blood positive but GI sees no convincing evidence of significant bleed, suspect hemorrhoids vs small diverticular bleed. Last colonoscopy 2013. GI does not recommend upper or lower endoscopy at this point. No B12, iron, or folate deficiency. (3) Elevated troponin Comment: Peaked at 0.06. Elevated troponin in the setting of significant anemia , suspect demand ischemia. (4) Non-alcoholic cirrhosis Comment: She has significant edema, has gained 20lbs since prior admission. Suspect related to low protein stores, start ensure and continue Furosemide IV BID but monitor Cr closely. Daily weights. Ammonia is normal - continue Lactulose and Rifaximin. (5) Full code status Comment: Continue omeprazole. (6) DVT prophylaxis Comment: Pharmacological prophylaxis contraindicated in the setting of GI bleed. SCDs. Status and Disposition: Inpatient with expected LOS > 2 days. Return to [facility] when medically stable.
[2016-08-16] MEDS: Spironolactone TAB* 25 MG PO SCH (16:44)
[2016-08-17 08:39] LABS: BUN/Creatinine Ratio 14.3 (8-20); Calcium 7.6 mg/dL (8.6-10.3); EGFR African American 53.4 (>60); EGFR Non-African American 41.5 (>60)
[2016-08-17] MEDS: Furosemide IV* 10 MG/ML VIAL (40 MG) IV SCH (08:43)
[2016-08-17] MEDS: RiFAXimin* 550 MG TAB PO SCH ×2 (08:45→21:05)
[2016-08-17] MEDS: Potassium Chlor TAB* 10 MEQ TAB.ER PO SCH (08:45)
[2016-08-17] MEDS: Multivitamins/Minerals TAB PO SCH (08:45)
[2016-08-17] MEDS: Omeprazole CAP* 20 MG PO SCH ×2 (08:45→21:05)
[2016-08-17] MEDS ORDERED: Vancomycin(*) 750 MG in NS 0.9% 250 ML* 250 ML IVPB SCH (09:00)
--- NOTE | 2016-08-17 09:26 | PN ---
Subjective Date of Service: 08/17/16 Interval History: Ms. Ford is in slightly better spirits today. She denies acute complaint including chest pain, SOB, hip, nausea, or abdominal pain. Family History: Unchanged from Admission Social History: Unchanged from Admission Past Medical History: Unchanged from Admission Objective Active Medications: Acetaminophen (Tylenol Tab*) 650 mg PO Q4H PRN Device (Nicotine Mouth Piece*) 1 each INH .USE WITH NICOTROL PRN Furosemide (Lasix Iv*) 40 mg IV DAILY RAGHU Furosemide (Lasix Iv*) 40 mg IV ONCE ONE Lactulose (Lactulose*) 45 ml PO TID RAGHU Morphine Sulfate (Morphine Inj (Syringe)*) 2 mg IV Q4H PRN Multivitamins/Minerals (Theragran/Minerals Tab*) 1 tab PO DAILY RAGHU Nicotine (Nicotine Inhaler*) 10 mg INH Q2H PRN Omeprazole (Prilosec Cap*) 20 mg PO BID RAGHU Ondansetron HCl (Zofran Inj*) 4 mg IV Q6H PRN Oxycodone/Acetaminophen (Percocet 5/325 Tab*) 1 tab PO Q4H PRN Potassium Chloride (Klor Con Er Tab*) 10 meq PO EVERY OTHER DAY RAGHU Rifaximin (Xifaxan*) 550 mg PO BID RAGHU Spironolactone (Aldactone Tab*) 100 mg PO DAILY@1600 [facility] Vital Signs 08/16/16 08/16/16 08/16/16 13:56 15:47 15:56 Temperature 98.0 F Pulse Rate 84 Respiratory 18 16 18 Rate Blood Pressure 104/61 (mmHg) O2 Sat by Pulse 94 Oximetry 08/16/16 08/16/16 08/16/16 16:00 19:06 19:18 Temperature 98.0 F Pulse Rate 82 Respiratory 20 18 Rate Blood Pressure 118/40 (mmHg) O2 Sat by Pulse 92 96 Oximetry 08/16/16 08/17/16 08/17/16 23:41 02:31 05:27 Temperature 98.1 F 98.1 F Pulse Rate 83 86 Respiratory 16 20 Rate Blood Pressure 109/50 114/77 (mmHg) O2 Sat by Pulse 95 93 96 Oximetry 08/17/16 08:00 Temperature Pulse Rate Respiratory 20 Rate Blood Pressure (mmHg) O2 Sat by Pulse 96 Oximetry Oxygen Devices in Use Now: None Respiratory: Symmetrical Chest Expansion and Respiratory Effort, Clear to Auscultation Cardiovascular: NL Sounds; No Murmurs; No JVD Abdominal: NL Sounds; No Tenderness; No Distention Extremities: - - +3 edema, mildly improved Skin: No Rash or Ulcers Neurological: Alert and Oriented x 3, NL Muscle Strength and Tone Nutrition: Taking PO's Result Diagrams: 08/15/16 06:16 08/17/16 07:33 Additional Lab and Data: Lab Results 08/11/16 08/11/16 08/11/16 Range/Units 16:50 16:50 16:50 WBC 6.1 (3.5-10.8) 10^3/ul RBC 1.73 L (4.0-5.4) 10^6/ul Hgb 5.8 L* (12.0-16.0) g/dl Hct 18 L (35-47) % MCV 102 H (80-97) fL MCH 34 H (27-31) pg MCHC 33 (31-36) g/dl RDW 25 H (10.5-15) % Plt Count 75 L (150-450) 10^3/ul MPV 10 (7.4-10.4) um3 Neut % (Auto) 60.0 (38-83) % Lymph % (Auto) 15.6 L (25-47) % Walker % (Auto) 22.0 H (1-9) % Eos % (Auto) 1.9 (0-6) % Baso % (Auto) 0.5 (0-2) % Absolute Neuts (auto) 3.7 (1.5-7.7) 10^3/ul Absolute Lymphs (auto) 1.0 (1.0-4.8) 10^3/ul Absolute Monos (auto) 1.3 H (0-0.8) 10^3/ul Absolute Eos (auto) 0.1 (0-0.6) 10^3/ul Absolute Basos (auto) 0 (0-0.2) 10^3/ul Absolute Nucleated RBC 0.01 10^3/ul Nucleated RBC % 0.1 Normal RBC Morphology Not Reportable Polychromasia 1+ Hypochromasia 2+ Microcytosis 1+ Target Cells 1+ INR (Anticoag Therapy) 1.80 H (0.89-1.11) Sodium 135 (133-145) mmol/L Potassium 3.9 (3.5-5.0) mmol/L Chloride 107 (101-111) mmol/L Carbon Dioxide 22 (22-32) mmol/L Anion Gap 6 (2-11) mmol/L BUN 26 H (6-24) mg/dL Creatinine 1.91 H (0.51-0.95) mg/dL Est GFR ( Amer) 33.0 (>60) Est GFR (Non-Af Amer) 25.7 (>60) BUN/Creatinine Ratio 13.6 (8-20) Glucose 119 H (70-100) mg/dL Calcium 7.8 L (8.6-10.3) mg/dL Total Bilirubin 3.60 H (0.2-1.0) mg/dL AST 50 H (13-39) U/L ALT 24 (7-52) U/L Alkaline Phosphatase 127 H (34-104) U/L Ammonia (16-53) mol/L Troponin I 0.06 H* (<0.04) ng/mL C-Reactive Protein 23.80 H (< 5.00) mg/L Total Protein 4.5 L (6.4-8.9) g/dL Albumin 2.1 L (3.2-5.2) g/dL Globulin 2.4 (2-4) g/dL Albumin/Globulin Ratio 0.9 L (1-3) Blood Type Antibody Screen Crossmatch 08/11/16 08/11/16 Range/Units 16:50 16:50 WBC (3.5-10.8) 10^3/ul RBC (4.0-5.4) 10^6/ul Hgb (12.0-16.0) g/dl Hct (35-47) % MCV (80-97) fL MCH (27-31) pg MCHC (31-36) g/dl RDW (10.5-15) % Plt Count (150-450) 10^3/ul MPV (7.4-10.4) um3 Neut % (Auto) (38-83) % Lymph % (Auto) (25-47) % Walker % (Auto) (1-9) % Eos % (Auto) (0-6) % Baso % (Auto) (0-2) % Absolute Neuts (auto) (1.5-7.7) 10^3/ul Absolute Lymphs (auto) (1.0-4.8) 10^3/ul Absolute Monos (auto) (0-0.8) 10^3/ul Absolute Eos (auto) (0-0.6) 10^3/ul Absolute Basos (auto) (0-0.2) 10^3/ul Absolute Nucleated RBC 10^3/ul Nucleated RBC % Normal RBC Morphology Polychromasia Hypochromasia Microcytosis Target Cells INR (Anticoag Therapy) (0.89-1.11) Sodium (133-145) mmol/L Potassium (3.5-5.0) mmol/L Chloride (101-111) mmol/L Carbon Dioxide (22-32) mmol/L Anion Gap (2-11) mmol/L BUN (6-24) mg/dL Creatinine (0.51-0.95) mg/dL Est GFR ( Amer) (>60) Est GFR (Non-Af Amer) (>60) BUN/Creatinine Ratio (8-20) Glucose (70-100) mg/dL Calcium (8.6-10.3) mg/dL Total Bilirubin (0.2-1.0) mg/dL AST (13-39) U/L ALT (7-52) U/L Alkaline Phosphatase (34-104) U/L Ammonia 37 (16-53) mol/L Troponin I (<0.04) ng/mL C-Reactive Protein (< 5.00) mg/L Total Protein (6.4-8.9) g/dL Albumin (3.2-5.2) g/dL Globulin (2-4) g/dL Albumin/Globulin Ratio (1-3) Blood Type A Positive Antibody Screen Negative Crossmatch See Detail Microbiology and Other Data: Microbiology 08/15/16 00:36 Nasal Screen MRSA (PCR)(SANDY) - Final Nasal Mrsa Negative 08/14/16 18:30 Wound Gram Stain - Preliminary Wound - Hip Left 08/14/16 18:30 Wound Gram Stain - Preliminary Wound - Hip Left 08/14/16 18:30 Gram Stain - Preliminary Hip Left Assess/Plan/Problems-Billing Assessment: Mrs. 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 - Patient Problems (1) Left hip pain Comment: POD # 3 s/p closure of sinus tract to left hip. Wound culture NGTD. CRP 22. No leukocytosis or fever. No evidence of infection. Stop antibiotics. (2) Anemia Comment: H/H stable after 2 units PRBC. Suspect anemia of chronic illness and cirrhosis. Report of BRBPR x 1 and stool occult blood positive but GI sees no convincing evidence of significant bleed, suspect hemorrhoids vs small diverticular bleed. Last colonoscopy 2013. GI does not recommend upper or lower endoscopy at this point. No B12, iron, or folate deficiency. (3) Elevated troponin Comment: Peaked at 0.06. Elevated troponin in the setting of significant anemia , suspect demand ischemia. (4) Non-alcoholic cirrhosis Comment: She has significant edema, has gained 20lbs since prior admission. Suspect related to low protein stores, start ensure and continue Furosemide IV BID but monitor Cr closely. Daily weights. Ammonia was normal but patient has been refusing full dose lacutlose at time, check ammonia in AM to trend. Continue rifaximin. (5) DVT prophylaxis Comment: Pharmacological prophylaxis contraindicated in the setting of GI bleed. SCDs. (6) DNR (do not resuscitate) Status and Disposition: Inpatient with expected LOS > 2 days. Return to [facility] when medically stable.
--- NOTE | 2016-08-17 12:04 | PN ---
Progress Note - Progress Note SOAP: Subjective: 75 y/o female s/p Left hip IF with wound revision (07/09 and 07/16), admitted 08/14 with wound drainage, s/p excision sinus tract L hip 08/14/2016. Pt states she is feeling better today but states that her bandage is falling off. Pt states that she feels like her edema is getting better. Pt denies any Chest pain. VSS] Objective: [General: alert, awake and oriented, No acute distress LLE: Wound on thigh: Dressing is falling off. Gauze is damp with serous fluid. Incision appears clean and intact. No fluid was expressed from it. 2+ pitting edema present. Pt has sensation to light touch grossly intact. Vital Signs Temp 97.9 F 08/17/16 11:46 Pulse 81 08/17/16 11:46 Resp 18 08/17/16 11:46 BP 131/42 08/17/16 11:46 Pulse Ox 96 08/17/16 11:46 Intake & Output 08/16/16 08/17/16 08/17/16 18:59 06:59 18:59 Intake Total 700 1080 60 Balance 700 1080 60 Weight 202 lb 11.2 oz Intake: IVPB 280 Zosyn 280 Oral 700 800 60 Other: Estimated Void Medium Medium # Bowel Movements 1 Estimated Stool Amount Small Small # Voids 1 ] Assessment: [POD #2 sinus tract excision of the L hip and washout.] Plan: [New dressing was placed today. continue to monitor around wound Continue abx - cultures pending Continue hospitalists plan for diuresis
[2016-08-17] MEDS ORDERED: Furosemide IV* 10 MG/ML 10 ML VIAL (100 MG) IV ONE (14:39)
[2016-08-17] MEDS ORDERED: Furosemide IV* 10 MG/ML VIAL (40 MG) IV ONE ×2 (14:46→16:00)
[2016-08-17] MEDS: Spironolactone TAB* 25 MG PO SCH (16:20)
[2016-08-18 07:09] LABS: BUN/Creatinine Ratio 15.8 (8-20); Calcium 7.5 mg/dL (8.6-10.3); EGFR African American 59.9 (>60); EGFR Non-African American 46.6 (>60); Potassium 3.1 mmol/L (3.5-5.0)
[2016-08-18] MEDS ORDERED: Vancomycin Trough Check NOTE FOLLOW UP ONE (08:30)
[2016-08-18] MEDS ORDERED: Potassium Chlor TAB* 20 MEQ TAB.ER PO ONE (08:39)
--- NOTE | 2016-08-18 08:57 | PN ---
Subjective Date of Service: 08/18/16 Interval History: Patient seen and examined at bedside. Denies fever, chills, shortness of breath , chest discomfort, N/V/D. Pt states that her leg edema is improving, but not to her baseline. Family History: Unchanged from Admission Social History: Unchanged from Admission Past Medical History: Unchanged from Admission Objective Active Medications: Acetaminophen (Tylenol Tab*) 650 mg PO Q4H PRN Reason: PAIN Device (Nicotine Mouth Piece*) 1 each INH .USE WITH NICOTROL PRN Reason: CRAVING Furosemide (Lasix Iv*) 40 mg IV DAILY RAGHU Lactulose (Lactulose*) 45 ml PO TID RAGHU Morphine Sulfate (Morphine Inj (Syringe)*) 2 mg IV Q4H PRN Reason: PAIN - MILD Multivitamins/Minerals (Theragran/Minerals Tab*) 1 tab PO DAILY RAGHU Nicotine (Nicotine Inhaler*) 10 mg INH Q2H PRN Reason: CRAVING Omeprazole (Prilosec Cap*) 20 mg PO BID RAGHU Ondansetron HCl (Zofran Inj*) 4 mg IV Q6H PRN Reason: NAUSEA Oxycodone/Acetaminophen (Percocet 5/325 Tab*) 1 tab PO Q4H PRN Reason: PAIN Potassium Chloride (Klor Con Er Tab*) 10 meq PO EVERY OTHER DAY RAGHU Rifaximin (Xifaxan*) 550 mg PO BID RAGHU Spironolactone (Aldactone Tab*) 100 mg PO DAILY@1600 [facility] Vital Signs 08/17/16 08/17/16 08/17/16 11:46 15:27 20:00 Temperature 97.9 F 98.1 F Pulse Rate 81 85 Respiratory 18 16 20 Rate Blood Pressure 131/42 129/46 (mmHg) O2 Sat by Pulse 96 96 Oximetry 08/17/16 08/17/16 08/18/16 20:21 23:23 04:00 Temperature 98.9 F 98.9 F 98.0 F Pulse Rate 88 89 84 Respiratory 20 16 16 Rate Blood Pressure 132/43 120/46 126/53 (mmHg) O2 Sat by Pulse 96 99 94 Oximetry 08/18/16 08/18/16 07:29 08:16 Temperature 98.0 F Pulse Rate 83 Respiratory 16 Rate Blood Pressure 123/46 (mmHg) O2 Sat by Pulse 96 96 Oximetry Oxygen Devices in Use Now: None Appearance: NAD, sitting up in bed. Eyes: No Scleral Icterus, PERRLA Ears/Nose/Mouth/Throat: NL Teeth, Lips, Gums, Mucous Membranes Moist Neck: NL Appearance and Movements; NL JVP, Trachea Midline Respiratory: Symmetrical Chest Expansion and Respiratory Effort, Clear to Auscultation Cardiovascular: NL Sounds; No Murmurs; No JVD, RRR Abdominal: NL Sounds; No Tenderness; No Distention - Bowel sounds present. Extremities: - - 2-3+ edema. Neurological: Alert and Oriented x 3, NL Muscle Strength and Tone Lines/Tubes/Other Access: Clean, Dry and Intact Peripheral IV - x2, site benign. Nutrition: Taking PO's Result Diagrams: 08/15/16 06:16 08/18/16 06:25 Microbiology and Other Data: Microbiology 08/15/16 00:36 Nasal Screen MRSA (PCR)(SANDY) - Final Nasal Mrsa Negative 08/14/16 18:30 Wound Gram Stain - Preliminary Wound - Hip Left 08/14/16 18:30 Wound Gram Stain - Preliminary Wound - Hip Left 08/14/16 18:30 Gram Stain - Preliminary Hip Left Assess/Plan/Problems-Billing Assessment: Mrs. 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 - Patient Problems (1) Left hip pain Code(s): M25.552 - PAIN IN LEFT HIP SNOMED Code(s): 95036708 Comment: POD # 4 s/p closure of sinus tract to left hip. Wound culture negative. CRP 22. No leukocytosis or fever. No evidence of infection. Antibiotics stopped. (2) Anemia Code(s): D64.9 - ANEMIA, UNSPECIFIED SNOMED Code(s): 702339510 Comment: H/H stable after 2 units PRBC. Suspect anemia of chronic illness and cirrhosis. Report of BRBPR x 1 and stool occult blood positive but GI sees no convincing evidence of significant bleed, suspect hemorrhoids vs small diverticular bleed. Last colonoscopy 2013. GI does not recommend upper or lower endoscopy at this point. No B12, iron, or folate deficiency. (3) Elevated troponin Code(s): R79.89 - OTHER SPECIFIED ABNORMAL FINDINGS OF BLOOD CHEMISTRY SNOMED Code(s): 950979739 Comment: Peaked at 0.06. Elevated troponin in the setting of significant anemia, suspect demand ischemia. (4) Non-alcoholic cirrhosis Comment: She has significant edema, has gained 20lbs since prior admission. Suspect related to low protein stores, start ensure and continue Furosemide IV BID today but monitor Cr closely. Will restart PO lasix in AM. Daily weights. Ammonia was normal but patient has been refusing full dose lacutlose at time, check ammonia in AM to trend. Continue rifaximin. (5) DVT prophylaxis Code(s): SXC7793 - SNOMED Code(s): 808134813 Comment: Pharmacological prophylaxis contraindicated in the setting of GI bleed. SCDs. (6) DNR (do not resuscitate) Status and Disposition: Inpatient with expected LOS > 2 days. Return to [facility] when medically stable.
[2016-08-18] MEDS: RiFAXimin* 550 MG TAB PO SCH ×2 (08:58→21:12)
[2016-08-18] MEDS: Multivitamins/Minerals TAB PO SCH (08:58)
[2016-08-18] MEDS: Omeprazole CAP* 20 MG PO SCH ×2 (08:58→21:12)
[2016-08-18] MEDS: Furosemide IV* 10 MG/ML VIAL (40 MG) IV SCH (09:00)
--- NOTE | 2016-08-18 13:14 | PN ---
Progress Note - Progress Note SOAP: Progress Note SOAP: Subjective: 75 y/o female s/p Left hip IF with wound revision (07/09 and 07/16), admitted 08/14 with wound drainage, s/p excision sinus tract L hip 08/14/2016. Pt states she is feeling better today. Bandage is staying on. Pt denies any Chest pain, SOB or calf pain. VSS] Objective: [General: alert, awake and oriented, No acute distress LLE: Wound on thigh: Dressing appears clean and intact. 2+ pitting edema present. Pt has sensation to light touch grossly intact. Vital Signs Temp 98.3 F 08/18/16 11:37 Pulse 81 08/18/16 11:37 Resp 14 08/18/16 11:37 BP 123/37 08/18/16 11:37 Pulse Ox 97 08/18/16 11:37 Intake & Output 08/17/16 08/18/16 08/18/16 18:59 06:59 18:59 Intake Total 880 800 360 Output Total 0 Balance 880 800 360 Weight 203 lb 11.2 oz Intake: Oral 880 800 360 Output: Urine 0 Other: Estimated Void Medium # Bowel Movements 3 1 Estimated Stool Amount Medium Medium Small # Voids 1 Microbiology 08/14/16 18:30 Wound Gram Stain - Final Wound - Hip Left Tissue Culture - Final No Growth Day 4 08/14/16 18:30 Wound Gram Stain - Final Wound - Hip Left Tissue Culture - Final No Growth Day 4 Anaerobic Culture - Final No Growth Day 4 08/14/16 18:30 Gram Stain - Final Hip Left Wound Culture - Final No Growth Day 2 08/15/16 00:36 Nasal Screen MRSA (PCR)(SANDY) - Final Nasal Mrsa Negative 08/11/16 18:30 Stool Gross Appearance - Final Stool Stool Occult Blood (SANDY) - Final ] Assessment: [POD #3 sinus tract excision of the L hip and washout.] Plan: [continue to monitor around wound Continue abx Continue hospitalists plan for diuresis
[2016-08-18] MEDS ORDERED: Analgesic BALM* 114 GM TOPICAL PRN (13:37)
[2016-08-18] MEDS ORDERED: Furosemide IV* 10 MG/ML VIAL (40 MG) IV ONE (14:00)
[2016-08-18] MEDS ORDERED: Furosemide IV* 10 MG/ML 10 ML VIAL (100 MG) IV ONE (14:00)
[2016-08-18] MEDS: Spironolactone TAB* 25 MG PO SCH (15:54)
[2016-08-19 06:09] LABS: Hematocrit 23 % (35-47); Hemoglobin 7.1 g/dl (12.0-16.0); Mean Corpuscular HGB Conc 32 g/dl (31-36); Mean Corpuscular Hemoglobin 32 pg (27-31); Mean Corpuscular Volume 103 fL (80-97); Mean Platelet Volume 10 um3 (7.4-10.4); White Blood Count 7.1 10^3/ul (3.5-10.8)
[2016-08-19 06:11] LABS: Comments Flag Yes
[2016-08-19 06:12] LABS: Red Cell Distribution Width 25 % (10.5-15)
[2016-08-19 06:40] LABS: BUN/Creatinine Ratio 15.7 (8-20); Calcium 7.8 mg/dL (8.6-10.3); EGFR African American 63.8 (>60); EGFR Non-African American 49.6 (>60); Potassium 3.5 mmol/L (3.5-5.0)
[2016-08-19] MEDS ORDERED: Furosemide TAB* 20 MG PO SCH ×2 (08:00→14:00)
[2016-08-19] MEDS: Omeprazole CAP* 20 MG PO SCH ×2 (08:17→21:37)
[2016-08-19] MEDS: Multivitamins/Minerals TAB PO SCH (08:17)
[2016-08-19] MEDS: Potassium Chlor TAB* 10 MEQ TAB.ER PO SCH (08:17)
[2016-08-19] MEDS: RiFAXimin* 550 MG TAB PO SCH ×2 (08:23→21:37)
--- NOTE | 2016-08-19 10:36 | PN ---
Subjective Date of Service: 08/19/16 Interval History: Patient seen and examined at bedside. Pt states that she is feeling well today and would like to return to [facility]. Denies fever, chills, shortness of breath, chest discomfort, N/V/D. Family History: Unchanged from Admission Social History: Unchanged from Admission Past Medical History: Unchanged from Admission Objective Active Medications: Acetaminophen (Tylenol Tab*) 650 mg PO Q4H PRN Reason: PAIN Device (Nicotine Mouth Piece*) 1 each INH .USE WITH NICOTROL PRN Reason: CRAVING Furosemide (Lasix Tab*) 60 mg PO 0800 RAGHU Furosemide (Lasix Tab*) 20 mg PO 1400 RAGHU Lactulose (Lactulose*) 45 ml PO TID RAGHU Morphine Sulfate (Morphine Inj (Syringe)*) 2 mg IV Q4H PRN Reason: PAIN - MILD Multi-Ingredient Liniment/Rub (Edwin Johnson*) 1 applic TOPICAL BID PRN Reason: PAIN Multivitamins/Minerals (Theragran/Minerals Tab*) 1 tab PO DAILY [facility] Nicotine (Nicotine Inhaler*) 10 mg INH Q2H PRN Reason: CRAVING Omeprazole (Prilosec Cap*) 20 mg PO BID RAGHU Ondansetron HCl (Zofran Inj*) 4 mg IV Q6H PRN Reason: NAUSEA Potassium Chloride (Klor Con Er Tab*) 10 meq PO EVERY OTHER DAY RAGHU Rifaximin (Xifaxan*) 550 mg PO BID RAGHU Spironolactone (Aldactone Tab*) 100 mg PO DAILY@1600 [facility] Vital Signs 08/18/16 08/18/16 08/18/16 11:37 15:58 16:16 Temperature 98.3 F 97.9 F Pulse Rate 81 87 Respiratory 14 16 Rate Blood Pressure 123/37 128/40 (mmHg) O2 Sat by Pulse 97 97 97 Oximetry 08/18/16 08/18/16 08/18/16 19:20 20:00 23:45 Temperature 97.9 F 98.4 F Pulse Rate 86 90 Respiratory 18 18 16 Rate Blood Pressure 125/58 107/37 (mmHg) O2 Sat by Pulse 98 97 Oximetry 08/19/16 08/19/16 03:35 07:16 Temperature 98.3 F 97.8 F Pulse Rate 89 91 Respiratory 16 17 Rate Blood Pressure 124/46 137/49 (mmHg) O2 Sat by Pulse 95 97 Oximetry Oxygen Devices in Use Now: None Appearance: NAD, sitting up in a chair. Eyes: No Scleral Icterus, PERRLA Ears/Nose/Mouth/Throat: NL Teeth, Lips, Gums, Mucous Membranes Moist Neck: NL Appearance and Movements; NL JVP, Trachea Midline Respiratory: Symmetrical Chest Expansion and Respiratory Effort, Clear to Auscultation - , diminished in the bases. Cardiovascular: NL Sounds; No Murmurs; No JVD, RRR Abdominal: NL Sounds; No Tenderness; No Distention Extremities: - - 2+ generalized edema. Skin: - - Dressing to left hip clean, dry and intact. Neurological: Alert and Oriented x 3, NL Muscle Strength and Tone Lines/Tubes/Other Access: Clean, Dry and Intact Peripheral IV - site benign. Nutrition: Taking PO's Result Diagrams: 08/19/16 05:48 08/19/16 05:48 Microbiology and Other Data: Microbiology 08/15/16 00:36 Nasal Screen MRSA (PCR)(SANDY) - Final Nasal Mrsa Negative 08/14/16 18:30 Wound Gram Stain - Preliminary Wound - Hip Left 08/14/16 18:30 Wound Gram Stain - Preliminary Wound - Hip Left 08/14/16 18:30 Gram Stain - Preliminary Hip Left Assess/Plan/Problems-Billing Assessment: Mrs. 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 - Patient Problems (1) Left hip pain Code(s): M25.552 - PAIN IN LEFT HIP SNOMED Code(s): 80007279 Comment: POD # 5, s/p closure of sinus tract to left hip. Wound culture negative. CRP 22. No leukocytosis or fever. No evidence of infection. Antibiotics stopped. (2) Anemia Code(s): D64.9 - ANEMIA, UNSPECIFIED SNOMED Code(s): 138177612 Comment: H/H stable after 2 units PRBC. Suspect anemia of chronic illness and cirrhosis. Report of BRBPR x 1 and stool occult blood positive but GI sees no convincing evidence of significant bleed, suspect hemorrhoids vs small diverticular bleed. Last colonoscopy 2013. GI does not recommend upper or lower endoscopy at this point. No B12, iron, or folate deficiency. (3) Elevated troponin Code(s): R79.89 - OTHER SPECIFIED ABNORMAL FINDINGS OF BLOOD CHEMISTRY SNOMED Code(s): 366798859 Comment: Peaked at 0.06. Elevated troponin in the setting of significant anemia, suspect demand ischemia. (4) Non-alcoholic cirrhosis Comment: She has significant edema, has gained 10lbs since prior admission. Suspect related to low protein stores, start ensure and continue Furosemide IV but monitor Cr closely. Will give IV lasix BID today. Will restart PO lasix once Pt is ready for discharge. Daily weights. Ammonia was normal but patient has been refusing full dose lacutlose at times. Continue rifaximin. (5) DVT prophylaxis Code(s): PUB2398 - SNOMED Code(s): 040195820 Comment: Pharmacological prophylaxis contraindicated in the setting of GI bleed. SCDs. (6) DNR (do not resuscitate) Status and Disposition: Inpatient with expected LOS > 2 days. Return to [facility] when medically stable.
[2016-08-19] MEDS ORDERED: Furosemide IV* 10 MG/ML VIAL (40 MG) IV ONE (14:00)
[2016-08-19] MEDS: Spironolactone TAB* 25 MG PO SCH (14:21)
[2016-08-20] MEDS ORDERED: Famotidine IV* 10 MG/ML 2 ML (20 mg) IV ONE (06:00)
[2016-08-20] MEDS ORDERED: Buffered Lidocaine 1% SYR 3ML* 3 ML/SYR SYRINGE INTRADERM ONE (06:00)
[2016-08-20] MEDS ORDERED: Buffered Lidocaine 1% SYR 3ML* 3 ML/SYR SYRINGE ONE (06:31)
[2016-08-20] MEDS ORDERED: Famotidine IV* 10 MG/ML 2 ML (20 mg) ONE (06:31)
[2016-08-20] MEDS ORDERED: fentaNYL* 50 MCG/ML 2 ML VIAL (100 MCG VIAL) ONE ×2 (07:11→08:53)
[2016-08-20] MEDS ORDERED: Ketorolac INJ* 30 MG/ML 1 ML VIAL ONE (07:11)
[2016-08-20] MEDS ORDERED: Lidocaine 2% MPF* 2 ML VIAL ONE (07:11)
[2016-08-20] MEDS ORDERED: Ondansetron INJ* 2 MG/ML VIAL ONE (07:11)
[2016-08-20] MEDS ORDERED: Midazolam* 1 MG/ML 5 ML VIAL (5 MG) ONE (07:11)
[2016-08-20] MEDS ORDERED: Dexamethasone IV* 4 MG/ML 1 ML (4 MG) ONE (07:11)
[2016-08-20] MEDS ORDERED: KETAMINE HCL* 50 MG/ML 10 ML VIAL ONE (07:11)
[2016-08-20] MEDS ORDERED: Propofol* 10 MG/ML 20 ML BTL IV PUSH ONE (07:11)
--- NOTE | 2016-08-20 07:35 | PN ---
Progress Note - Progress Note Note: Patient seen and examined yesterday and again this morning. Dressing changed yesterday. Wound has no malodor but continues to have serous drainage from the middle of the wound. All her cultures from deep including deep tissue cultures were negative. The other two incisions remain closed. We're going to plan for irrigation and debridement of her left hip wound and wound vac application this morning.
[2016-08-20] MEDS ORDERED: Cisatracurium* 2 MG/ML MDV 10 ML ONE (07:44)
[2016-08-20] MEDS ORDERED: Phenylephrine IV* 40 MCG/ML 10 ML SYRINGE ONE ×2 (07:54→07:58)
[2016-08-20] MEDS ORDERED: Glycopyrrolate IV* 0.2 MG/ML 1 ML VIAL ONE (08:14)
[2016-08-20] MEDS ORDERED: Neostigmine Methylsulfate* 2 MG/2 ML SYRINGE ONE (08:14)
[2016-08-20] MEDS ORDERED: oxyCODONE/Acetamin 5/325 MG* TAB PO PRN (08:44)
[2016-08-20] MEDS ORDERED: Ondansetron INJ* 2 MG/ML VIAL IV PRN (08:44)
--- NOTE | 2016-08-20 08:48 | PN ---
Progress Note - Progress Note Note: Please see dictated operative note for full details. I performed and I&D of the skin and subcutaneous tissue and placed a wound vac. We will plan for wound closure with a wound vac. She will need her wound vac changes arranged. These should be done with her in the lateral decubitus position.
[2016-08-20] MEDS: fentaNYL* 50 MCG/ML 2 ML VIAL (100 MCG VIAL) IV PRN ×3 (08:54→09:11)
[2016-08-20] MEDS ORDERED: oxyCODONE/Acetamin 5/325 MG* TAB ONE (09:01)
[2016-08-20] MEDS: Multivitamins/Minerals TAB PO SCH (10:02)
[2016-08-20] MEDS: Omeprazole CAP* 20 MG PO SCH ×2 (10:02→20:30)
[2016-08-20] MEDS: Furosemide IV* 10 MG/ML VIAL (40 MG) IV SCH (10:03)
[2016-08-20] MEDS: RiFAXimin* 550 MG TAB PO SCH ×2 (10:08→20:30)
--- NOTE | 2016-08-20 10:24 | OP ---
OPERATIVE REPORT: DATE OF OPERATION: 08/20/16 - SSU 350-02. DATE OF : 42 SURGEON: Edward Rizzo MD SINGLE ENDING MACHINE OPERATOR: None. ANESTHESIOLOGIST: Dr. Lyle. ANESTHESIA: General. PRE-OP DIAGNOSIS: Persistently draining left hip wound. POST-OP DIAGNOSIS: Persistently draining left hip wound. OPERATIVE PROCEDURE: 1. Irrigation and debridement of the skin and subcutaneous tissue. 2. Application of wound VAC, left hip wound, 8 cm long x 3 cm wide x 2 cm deep. INDICATIONS: Karie is a 75-year-old female whom I did a Gamma nail for a left hip intertrochanteric fracture on 07/09/16. The nailing was uneventful. She has liver failure and developed extreme anasarca postoperatively. She has healed her two distal wounds eventually but she has never quite been able to heal the left hip wound. At the last I and D, we took a bunch of deep cultures and everything was negative for growth. There is no foul smell of the wound or anything. It just would not stop draining serous fluid and she remains significantly fluid overloaded. ESTIMATED BLOOD LOSS: 10 mL. COMPLICATIONS: None. FINDINGS: As expected. DESCRIPTION OF PROCEDURE: Karie was seen in the preoperative holding area and we came back to the operating room where she was positioned in the lateral decubitus position using the delgado bag. General endotracheal anesthesia had been induced. We had a formal time-out. The wound was prepped and draped in the usual fashion. I went ahead and removed the stitches and opened up the wound. Everything was closed up nicely deeply, but there remained that superficial wound. I measured it and it was 8 x 3 x 2 cm. I went ahead and washed this out with a liter of warm sterile saline. Nothing looked murky or infected. I trimmed back a little bit of subcutaneous tissue and cut down all the sutures. The wound was nice and clean and so I went ahead and contoured the wound VAC sponge and placed this in the wound and placed a couple of plastic strips to secure everything down. I then made a little hole in the plastic and placed the Lilypad suction cup in standard fashion and we hooked it up to the wound VAC machine to 125 mmHg continuous suction. She was then woken back up and taken to the recovery room in stable condition. [id number]/[facility] #: [id number] [facility]
--- NOTE | 2016-08-20 14:14 | PN ---
Subjective Date of Service: 08/20/16 Interval History: Patient seen and examined at bedside. Pt states that she feels well, but is fatigued today. Pt states that her edema is improving. Denies fever, chills, shortness of breath, chest discomfort, N/V/D. Pt states that she is INC of large amounts of urine. Family History: Unchanged from Admission Social History: Unchanged from Admission Past Medical History: Unchanged from Admission Objective Active Medications: Device (Nicotine Mouth Piece*) 1 each INH .USE WITH NICOTROL PRN Reason: CRAVING Furosemide (Lasix Iv*) 40 mg IV DAILY [facility] Lactated Ringer's (Lactated Ringers 1000 Ml Bag*) 1,000 mls @ 50 mls/hr IV PER RATE [facility] Lactulose (Lactulose*) 45 ml PO TID [facility] Morphine Sulfate (Morphine Inj (Syringe)*) 2 mg IV Q4H PRN Reason: PAIN - MILD Multi-Ingredient Liniment/Rub (Edwin Johnson*) 1 applic TOPICAL BID PRN Reason: PAIN Multivitamins/Minerals (Theragran/Minerals Tab*) 1 tab PO DAILY [facility] Nicotine (Nicotine Inhaler*) 10 mg INH Q2H PRN Reason: CRAVING Omeprazole (Prilosec Cap*) 20 mg PO BID [facility] Ondansetron HCl (Zofran Inj*) 4 mg IV Q6H PRN Reason: NAUSEA Oxycodone/Acetaminophen (Percocet 5/325 Tab*) 1 tab PO ONCE PRN Reason: PAIN - MODERATE Stop: 08/21/16 08:45 Potassium Chloride (Klor Con Er Tab*) 10 meq PO EVERY OTHER DAY [facility] Rifaximin (Xifaxan*) 550 mg PO BID [facility] Spironolactone (Aldactone Tab*) 100 mg PO DAILY@1600 [facility] Vital Signs 08/19/16 08/19/16 08/19/16 15:31 16:00 19:50 Temperature 98.1 F 98.1 F Pulse Rate 85 86 Respiratory 16 18 Rate Blood Pressure 137/47 124/40 (mmHg) O2 Sat by Pulse 99 99 97 Oximetry 08/19/16 08/19/16 08/20/16 20:00 23:32 04:01 Temperature 98.2 F 98.1 F Pulse Rate 89 87 Respiratory 20 20 20 Rate Blood Pressure 130/44 133/45 (mmHg) O2 Sat by Pulse 97 99 Oximetry 08/20/16 08/20/16 08/20/16 06:58 08:36 08:40 Temperature 98.4 F 97.7 F Pulse Rate 87 102 103 Respiratory 18 16 16 Rate Blood Pressure 148/50 131/61 129/56 (mmHg) O2 Sat by Pulse 96 99 96 Oximetry 08/20/16 08/20/16 08/20/16 08:45 08:54 08:59 Temperature Pulse Rate 96 Respiratory 16 16 16 Rate Blood Pressure 127/61 (mmHg) O2 Sat by Pulse 98 Oximetry 08/20/16 08/20/16 08/20/16 09:00 09:02 09:11 Temperature Pulse Rate 89 Respiratory 16 16 14 Rate Blood Pressure 125/56 (mmHg) O2 Sat by Pulse 98 Oximetry 08/20/16 08/20/16 08/20/16 09:15 09:54 09:59 Temperature 97.7 F Pulse Rate 85 Respiratory 14 18 18 Rate Blood Pressure 129/60 (mmHg) O2 Sat by Pulse 97 Oximetry 08/20/16 08/20/16 08/20/16 10:11 10:39 10:41 Temperature 97.3 F Pulse Rate 85 Respiratory 18 18 16 Rate Blood Pressure 126/55 (mmHg) O2 Sat by Pulse 97 96 Oximetry 08/20/16 08/20/16 08/20/16 10:49 11:02 11:54 Temperature 97.2 F 97.4 F Pulse Rate 88 80 Respiratory 18 18 18 Rate Blood Pressure 125/57 125/54 (mmHg) O2 Sat by Pulse 95 96 Oximetry Oxygen Devices in Use Now: None Appearance: NAD, laying in bed. Eyes: No Scleral Icterus, PERRLA Ears/Nose/Mouth/Throat: NL Teeth, Lips, Gums, Mucous Membranes Moist Neck: NL Appearance and Movements; NL JVP, Trachea Midline Respiratory: Symmetrical Chest Expansion and Respiratory Effort, Clear to Auscultation - , diminished. Cardiovascular: NL Sounds; No Murmurs; No JVD, RRR Abdominal: NL Sounds; No Tenderness; No Distention Extremities: - - 2+ generalized edema. Skin: No Rash or Ulcers, - - Wound vac to left lateral hip intact. Neurological: Alert and Oriented x 3, NL Muscle Strength and Tone Lines/Tubes/Other Access: Clean, Dry and Intact Peripheral IV - site benign. Nutrition: Taking PO's Result Diagrams: 08/19/16 05:48 08/19/16 05:48 Additional Lab and Data: Microbiology and Other Data: Microbiology 08/15/16 00:36 Nasal Screen MRSA (PCR)(SANDY) - Final Nasal Mrsa Negative 08/14/16 18:30 Wound Gram Stain - Preliminary Wound - Hip Left 08/14/16 18:30 Wound Gram Stain - Preliminary Wound - Hip Left 08/14/16 18:30 Gram Stain - Preliminary Hip Left Assess/Plan/Problems-Billing Assessment: Mrs. 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 - Patient Problems (1) Left hip pain Code(s): M25.552 - PAIN IN LEFT HIP SNOMED Code(s): 16626574 Comment: POD # 5, s/p closure of sinus tract to left hip. S/P I+D and placement of wound vac today. Wound culture negative. CRP 22. No leukocytosis or fever. No evidence of infection. Antibiotics stopped 08/16. (2) Anemia Code(s): D64.9 - ANEMIA, UNSPECIFIED SNOMED Code(s): 237745478 Comment: H/H stable. Suspect anemia of chronic illness and cirrhosis. Report of BRBPR x 1 and stool occult blood positive but GI sees no convincing evidence of significant bleed, suspect hemorrhoids vs small diverticular bleed. Last colonoscopy 2013. GI does not recommend upper or lower endoscopy at this point. No B12, iron, or folate deficiency. (3) Elevated troponin Code(s): R79.89 - OTHER SPECIFIED ABNORMAL FINDINGS OF BLOOD CHEMISTRY SNOMED Code(s): 364016224 Comment: Peaked at 0.06. Elevated troponin in the setting of significant anemia, suspect demand ischemia. (4) Non-alcoholic cirrhosis Comment: She has significant edema, has gained 10lbs since prior admission. Suspect related to low protein stores, start ensure and continue Furosemide IV but monitor Cr closely. Will restart PO lasix once Pt is ready for discharge. Daily weights. Ammonia was normal but patient has been refusing full dose lacutlose at times. Continue rifaximin. (5) DVT prophylaxis Code(s): DJL7163 - SNOMED Code(s): 660929340 Comment: Pharmacological prophylaxis contraindicated in the setting of GI bleed. SCDs. (6) DNR (do not resuscitate) Status and Disposition: Inpatient with expected LOS > 2 days. Return to [facility] when medically stable.
[2016-08-20] MEDS: Spironolactone TAB* 25 MG PO SCH (15:55)
[2016-08-21] MEDS: RiFAXimin* 550 MG TAB PO SCH ×2 (08:52→21:37)
[2016-08-21] MEDS: Omeprazole CAP* 20 MG PO SCH ×2 (08:52→21:38)
[2016-08-21] MEDS: Furosemide IV* 10 MG/ML VIAL (40 MG) IV SCH (08:52)
[2016-08-21] MEDS: Potassium Chlor TAB* 10 MEQ TAB.ER PO SCH (08:52)
[2016-08-21] MEDS: Multivitamins/Minerals TAB PO SCH (08:52)
--- NOTE | 2016-08-21 09:09 | PN ---
Subjective Date of Service: 08/21/16 Interval History: Patient seen and examined at bedside. Pt states that she is feeling well today and is anxious to go back to [facility]. Pt states that she feels her edema is improving. Denies fever, chills, shortness of breath, chest discomfort, N/V/ D. Family History: Unchanged from Admission Social History: Unchanged from Admission Past Medical History: Unchanged from Admission Objective Active Medications: Device (Nicotine Mouth Piece*) 1 each INH .USE WITH NICOTROL PRN Reason: CRAVING Furosemide (Lasix Iv*) 40 mg IV DAILY [facility] Lactulose (Lactulose*) 45 ml PO TID [facility] Morphine Sulfate (Morphine Inj (Syringe)*) 2 mg IV Q4H PRN Reason: PAIN - MILD Multi-Ingredient Liniment/Rub (Edwin Johnson*) 1 applic TOPICAL BID PRN Reason: PAIN Multivitamins/Minerals (Theragran/Minerals Tab*) 1 tab PO DAILY [facility] Nicotine (Nicotine Inhaler*) 10 mg INH Q2H PRN Reason: CRAVING Omeprazole (Prilosec Cap*) 20 mg PO BID [facility] Ondansetron HCl (Zofran Inj*) 4 mg IV Q6H PRN Reason: NAUSEA Potassium Chloride (Klor Con Er Tab*) 10 meq PO EVERY OTHER DAY [facility] Rifaximin (Xifaxan*) 550 mg PO BID [facility] Spironolactone (Aldactone Tab*) 100 mg PO DAILY@1600 [facility] Vital Signs 08/20/16 08/20/16 08/20/16 09:11 09:15 09:54 Temperature 97.7 F Pulse Rate 85 Respiratory 14 14 18 Rate Blood Pressure 129/60 (mmHg) O2 Sat by Pulse 97 Oximetry 08/20/16 08/20/16 08/20/16 09:59 10:11 10:39 Temperature Pulse Rate Respiratory 18 18 18 Rate Blood Pressure (mmHg) O2 Sat by Pulse 97 Oximetry 08/20/16 08/20/16 08/20/16 10:41 10:49 11:02 Temperature 97.3 F 97.2 F Pulse Rate 85 88 Respiratory 16 18 18 Rate Blood Pressure 126/55 125/57 (mmHg) O2 Sat by Pulse 96 95 Oximetry 08/20/16 08/20/16 08/20/16 11:54 14:08 15:50 Temperature 97.4 F 97.4 F 97.5 F Pulse Rate 80 75 85 Respiratory 18 18 16 Rate Blood Pressure 125/54 114/54 122/50 (mmHg) O2 Sat by Pulse 96 94 98 Oximetry 08/20/16 08/20/16 08/20/16 16:00 19:37 20:00 Temperature 97.4 F Pulse Rate 83 Respiratory 16 16 Rate Blood Pressure 121/47 (mmHg) O2 Sat by Pulse 98 100 Oximetry 08/20/16 08/21/16 08/21/16 23:42 03:44 07:25 Temperature 99.0 F 98.9 F 97.8 F Pulse Rate 80 81 82 Respiratory 20 20 18 Rate Blood Pressure 127/52 139/49 101/52 (mmHg) O2 Sat by Pulse 97 97 97 Oximetry Oxygen Devices in Use Now: None Appearance: NAD, sitting up in bed. Eyes: No Scleral Icterus, PERRLA Ears/Nose/Mouth/Throat: NL Teeth, Lips, Gums, Mucous Membranes Moist Neck: NL Appearance and Movements; NL JVP, Trachea Midline Respiratory: Symmetrical Chest Expansion and Respiratory Effort, Clear to Auscultation - , diminished. Cardiovascular: NL Sounds; No Murmurs; No JVD, RRR Abdominal: NL Sounds; No Tenderness; No Distention Extremities: - - 2+ generalized edema. Skin: - - Wound vac to left hip intact. Neurological: Alert and Oriented x 3, NL Muscle Strength and Tone Lines/Tubes/Other Access: Clean, Dry and Intact Peripheral IV - x 2, sites benign. Nutrition: Taking PO's Result Diagrams: 08/19/16 05:48 08/19/16 05:48 Additional Lab and Data: Microbiology and Other Data: Microbiology 08/15/16 00:36 Nasal Screen MRSA (PCR)(SANDY) - Final Nasal Mrsa Negative 08/14/16 18:30 Wound Gram Stain - Preliminary Wound - Hip Left 08/14/16 18:30 Wound Gram Stain - Preliminary Wound - Hip Left 08/14/16 18:30 Gram Stain - Preliminary Hip Left Assess/Plan/Problems-Billing Assessment: Mrs. 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 - Patient Problems (1) Left hip pain Code(s): M25.552 - PAIN IN LEFT HIP SNOMED Code(s): 22724723 Comment: POD # 6, s/p closure of sinus tract to left hip. S/P I+D and placement of wound vac 1/. Wound culture negative. CRP 22. No leukocytosis or fever. No evidence of infection. Antibiotics stopped 08/16. (2) Anemia Code(s): D64.9 - ANEMIA, UNSPECIFIED SNOMED Code(s): 541310612 Comment: H/H stable. Suspect anemia of chronic illness and cirrhosis. Report of BRBPR x 1 and stool occult blood positive but GI sees no convincing evidence of significant bleed, suspect hemorrhoids vs small diverticular bleed. Last colonoscopy 2013. GI does not recommend upper or lower endoscopy at this point. No B12, iron, or folate deficiency. (3) Elevated troponin Code(s): R79.89 - OTHER SPECIFIED ABNORMAL FINDINGS OF BLOOD CHEMISTRY SNOMED Code(s): 188575966 Comment: Peaked at 0.06. Elevated troponin in the setting of significant anemia, suspect demand ischemia. (4) Non-alcoholic cirrhosis Comment: She has significant edema, has gained 10lbs since prior admission. Suspect related to low protein stores, start ensure and continue Furosemide IV but monitor Cr closely. Will restart PO lasix once Pt is ready for discharge. Daily weights. Ammonia was normal but patient has been refusing full dose lacutlose at times. Continue rifaximin. (5) DVT prophylaxis Code(s): PFS1808 - SNOMED Code(s): 049305309 Comment: Pharmacological prophylaxis contraindicated in the setting of GI bleed. SCDs. (6) DNR (do not resuscitate) Status and Disposition: Inpatient with expected LOS > 2 days. Return to [facility] when medically stable.
[2016-08-21] MEDS: Spironolactone TAB* 25 MG PO SCH (16:05)
[2016-08-22] MEDS: Furosemide IV* 10 MG/ML VIAL (40 MG) IV SCH (09:16)
[2016-08-22] MEDS: Multivitamins/Minerals TAB PO SCH (09:17)
[2016-08-22] MEDS: Omeprazole CAP* 20 MG PO SCH (09:17)
[2016-08-22] MEDS: RiFAXimin* 550 MG TAB PO SCH (09:21)
--- NOTE | 2016-08-22 10:17 | PN ---
Subjective Date of Service: 08/22/16 Interval History: Patient seen and examined at bedside. Pt states that she is feeling well and ready to return to [facility] today. Pt states that she feels her edema continues to improve. Denies fever, chills, shortness of breath, chest discomfort, N/V/D. Family History: Unchanged from Admission Social History: Unchanged from Admission Past Medical History: Unchanged from Admission Objective Active Medications: Device (Nicotine Mouth Piece*) 1 each INH .USE WITH NICOTROL PRN Reason: CRAVING Furosemide (Lasix Iv*) 40 mg IV DAILY [facility] Furosemide (Lasix Tab*) 20 mg PO 1400 [facility] Lactulose (Lactulose*) 45 ml PO TID [facility] Multi-Ingredient Liniment/Rub (Edwin Johnson*) 1 applic TOPICAL BID PRN Reason: PAIN Multivitamins/Minerals (Theragran/Minerals Tab*) 1 tab PO DAILY [facility] Nicotine (Nicotine Inhaler*) 10 mg INH Q2H PRN Reason: CRAVING Omeprazole (Prilosec Cap*) 20 mg PO BID [facility] Ondansetron HCl (Zofran Inj*) 4 mg IV Q6H PRN Reason: NAUSEA Potassium Chloride (Klor Con Er Tab*) 10 meq PO EVERY OTHER DAY [facility] Rifaximin (Xifaxan*) 550 mg PO BID [facility] Spironolactone (Aldactone Tab*) 100 mg PO DAILY@1600 [facility] Vital Signs 08/21/16 08/21/16 08/21/16 15:49 16:00 19:42 Temperature 97.9 F Pulse Rate 88 Respiratory 16 20 Rate Blood Pressure 122/43 (mmHg) O2 Sat by Pulse 98 97 Oximetry 08/21/16 08/21/16 08/22/16 20:05 23:17 04:24 Temperature 98.0 F 98.1 F 98.1 F Pulse Rate 87 85 90 Respiratory 16 16 20 Rate Blood Pressure 116/50 117/48 124/44 (mmHg) O2 Sat by Pulse 98 98 96 Oximetry 08/22/16 08:37 Temperature 97.9 F Pulse Rate 82 Respiratory 18 Rate Blood Pressure 128/55 (mmHg) O2 Sat by Pulse 97 Oximetry Oxygen Devices in Use Now: None Appearance: NAD, laying in bed. Eyes: No Scleral Icterus, PERRLA Ears/Nose/Mouth/Throat: NL Teeth, Lips, Gums, Mucous Membranes Moist Neck: NL Appearance and Movements; NL JVP, Trachea Midline Respiratory: Symmetrical Chest Expansion and Respiratory Effort, Clear to Auscultation Cardiovascular: NL Sounds; No Murmurs; No JVD, RRR Abdominal: NL Sounds; No Tenderness; No Distention - Bowel sounds present Extremities: - - 2+ generalized edema. Edema is slowly improving. Skin: - - Wound vac to left hip intact. Neurological: Alert and Oriented x 3, NL Muscle Strength and Tone Lines/Tubes/Other Access: Clean, Dry and Intact Peripheral IV - x2, site benign. Nutrition: Taking PO's Result Diagrams: 08/19/16 05:48 08/19/16 05:48 Additional Lab and Data: Microbiology and Other Data: Microbiology 08/15/16 00:36 Nasal Screen MRSA (PCR)(SANDY) - Final Nasal Mrsa Negative 08/14/16 18:30 Wound Gram Stain - Preliminary Wound - Hip Left 08/14/16 18:30 Wound Gram Stain - Preliminary Wound - Hip Left 08/14/16 18:30 Gram Stain - Preliminary Hip Left Assess/Plan/Problems-Billing Assessment: Mrs. 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 - Patient Problems (1) Left hip pain Code(s): M25.552 - PAIN IN LEFT HIP SNOMED Code(s): 69844386 Comment: POD # 7, s/p closure of sinus tract to left hip. S/P I+D and placement of wound vac 08/20. Wound culture negative. CRP 22. No leukocytosis or fever. No evidence of infection. Antibiotics stopped 08/16. (2) Anemia Code(s): D64.9 - ANEMIA, UNSPECIFIED SNOMED Code(s): 420986548 Comment: H/H stable. Suspect anemia of chronic illness and cirrhosis. Report of BRBPR x 1 and stool occult blood positive but GI sees no convincing evidence of significant bleed, suspect hemorrhoids vs small diverticular bleed. Last colonoscopy 2013. GI does not recommend upper or lower endoscopy at this point. No B12, iron, or folate deficiency. (3) Elevated troponin Code(s): R79.89 - OTHER SPECIFIED ABNORMAL FINDINGS OF BLOOD CHEMISTRY SNOMED Code(s): 151403366 Comment: Peaked at 0.06. Elevated troponin in the setting of significant anemia, suspect demand ischemia. (4) Non-alcoholic cirrhosis Comment: She has significant edema, has gained 10lbs since prior admission. Suspect related to low protein stores, start ensure. Will restart PO lasix. Daily weights. Ammonia was normal but patient has been refusing full dose lacutlose at times. Continue rifaximin. (5) DVT prophylaxis Code(s): [id number] - SNOMED Code(s): 207354824 Comment: Pharmacological prophylaxis contraindicated in the setting of GI bleed. SCDs. (6) DNR (do not resuscitate) Status and Disposition: Inpatient. Stable for discharge to [facility] today.
[2016-08-22 13:21] VITALS: BP 123/51
[2016-08-22] MEDS ORDERED: Furosemide TAB* 20 MG PO SCH (14:00)
--- NOTE | 2016-08-22 14:02 | DS ---
DISCHARGE SUMMARY: DATE OF ADMISSION: 08/11/16 DATE OF DISCHARGE: 08/22/16 ATTENDING PHYSICIAN: Dr. Niecy Tariq * (dictated by Shara Allen NP). PRIMARY CARE PROVIDER: Dr. Miriam So. PRIMARY DIAGNOSES: 1. Non-healing wound of the left hip. 2. Acute kidney injury. 3. Cirrhosis. SECONDARY DIAGNOSES: 1. Thrombocytopenia, chronic anemia. 2. Possible gastrointestinal bleed. 3. Indeterminate troponin. CONSULTATIONS WHILE IN THE HOSPITAL: 1. Dr. Aly Eubanks with Gastroenterology. 2. Dr. Edward Rizzo with Orthopedic Surgery. PROCEDURES WHILE IN THE HOSPITAL: 1. Status post irrigation and debridement and excision of subcutaneous sinus tract, left hip wound, with closure of wound on 08/14/[address] Edward Rizzo. 2. Status post irrigation and debridement of the skin and subcutaneous tissue of the left hip and application of wound VAC to left hip wound that is approximately 8 cm long x 3 cm x 2 cm deep on 08/20/[address] Edward Rizzo. STUDIES WHILE IN THE HOSPITAL: Lower extremity CT on 08/11/16. Radiologist's impression: Noted is a fracture of the proximal femur, status post internal fixation. There is subcutaneous edema of the left thigh. Osteoarthritis. Trace pelvic ascites. DISCHARGE MEDICATIONS: Continued home medications: 1. Rifaximin 550 mg oral twice daily. 2. Omeprazole 20 mg oral twice daily. 3. Lactulose 45 mL oral 3 times daily. 4. Potassium chloride 10 mEq oral every other day. 5. [place]-3 fatty acid 1 capsule oral daily. 6. Multivitamin 1 capsule oral daily. 7. Percocet 5/325 one tablet oral every 4 hours as needed for pain. 8. Furosemide 20 mg oral daily at 1400. 9. Citrucel laxative 500 mg oral twice daily as needed for constipation. 10. Skin protectant. 11. Furosemide 60 mg oral daily in the morning. 12. Spironolactone 100 mg oral daily. Discontinued medications: Ciprofloxacin. HISTORY OF PRESENT ILLNESS/HOSPITAL COURSE: Ms. Ford is a 75-year-old female with past medical history significant for fatty liver, cirrhosis, hepatic encephalopathy, GERD, and history of seizures, who was hospitalized from July 09 to July 25 after sustaining a left intertrochanteric hip fracture. The patient had initially been taken to the operating room on for closed reduction and Gamma nail fixation. The patient had been doing well; however on July 16, the patient had to be taken back to the operating room for exploration of her hip wound as there appeared to be no significant healing despite being 6 days postoperative. The patient did well and was ultimately transferred to [facility] on 07/25/16 for a subacute rehabilitation. The patient had been doing well at rehab up until August 07, at which point, the patient had reportedly sustained a fall on August 06. The patient believes she took a misstep or fell out of her slippers. The patient denied any loss of consciousness and the patient reports not hitting her left leg. On the morning of August 07, the patient again fell without loss of consciousness and again this fall was felt to be a mechanical fall. The patient was complaining of severe left hip pain and was unable to ambulate due to the severity of her pain. The patient's family had also noted that there was some bruising on the left leg that was not noted prior to her falling. It is also to note that on the day of presentation to the emergency room, the patient was reportedly noted to have bright red blood in her stool per [facility] nursing staff. The patient was unaware of this event. The patient was sent to the emergency room from [facility] for further evaluation. While in the emergency room, the patient had labs that were significant for a hemoglobin of 5.8 and a hematocrit of 18 and a platelet count of 75. The patient's INR was 1.8. The patient's creatinine was 1.91. Ammonia of 37 and troponin of 0.06. The patient's CRP was 23.8. The patient had a left lower extremity CT showing a fracture of the proximal femur that was status post an internal fixation. There was also subcutaneous edema of the left thigh and trace pelvic ascites. Based off the patient's presentation and concern for possible GI bleed, acute kidney injury, bright red blood per rectum, and elevated troponin, the patient was evaluated by the hospitalist for admission. While in the hospital, the patient was seen in consultation by Dr. Eubanks with Gastroenterology for her heme-positive stool and anemia. It was felt that the patient did not have a significant drop in her hemoglobin compared to her already compromised baseline and she had not had a rise in her BUN. It was felt to be more likely bleed from her anal canal or an anorectal mechanism, possibly a very small diverticular bleed. It was felt it was best to defer from an upper endoscopy as the patient has not had problems with esophageal varices in the past. It was felt that the patient's nutritional status was her priority. It was felt that the patient's bleeding had stopped and that she was not candidate at that time for another polyp surveillance colonoscopy and at this time, the colonoscopy would not affect the patient's decision making. The patient received 2 units of packed red blood cells during her stay. Her hemoglobin and hematocrit remain stable. Her last hemoglobin and hematocrit on August 19 was 7.1 and 23. As far as the patient's acute kidney injury, despite receiving lot of diuretics, her renal function has improved. Her last creatinine on August 19 was 1.208. It appears that this is close to the patient's baseline. The patient continued to have severe anasarca and 2 to 3+ generalized edema. The patient was aggressively diuresed. It appears that the patient may weigh 10 to 20 pounds more than her initial admission in July. We have been able to diurese a few pounds off the patient during her stay. The patient reports that her edema is improving. As far as the patient's indeterminate troponin, her troponin has peaked at 0.06. It was felt that the elevated troponin was in the setting of significant anemia and suspected demand ischemia. It is felt that the patient's edema is related to low-protein stores. The patient was started on dietary supplementation. The patient has been transitioned back over to her oral Lasix. The patient's ammonia has remained at a constant level even though she often declines to take her whole lactulose dose. The patient's vital signs have remained stable. She has been able to get up to a chair and is feeling well. Ms. Ford underwent an irrigation and debridement and excision of subcutaneous sinus tract of the left hip wound with wound closure on August [address] Rizzo. On August 20, the patient was taken back to the operating room for an irrigation and debridement of the skin and subcutaneous tissue and had the application of a wound VAC by Dr. Rizzo. Ms. oFrd is felt to be ready for discharge back to [facility] today. Ms. Ford was stable for discharge to [facility] today. Vital signs are as follows: Temperature 97.9, heart rate 82, respiratory rate 18, O2 sat 97% on room air, blood pressure 128/55. DISCHARGE PLAN: Ms. Ford will be discharged to [facility]. Activity as tolerated. She should continue OT and PT as needed. The patient should be on a heart-healthy diet with 2000 mL fluid restriction daily to assist with decreasing her edema. The patient should be continued on nutritional supplement to help build her protein stores as this may also help reduce the patient's edema. As far as her left hip wound, she should follow up with Dr. Rizzo with Orthopedic Surgery in the next 7 to 10 days. At that time, she should bring the supplies for wound VAC dressing change. The patient should have wound VAC dressing changes 3 times weekly done in the lateral decubital position. The patient should also follow up with her primary care doctor, Dr. So, or the [facility] provider per protocol. Ms. Ford should return to the emergency room for shortness of breath or chest pain. This is a summarized report of a complex medical history and hospital stay. For further details, please see the entire medical record. TIME SPENT: Time for this discharge was 50 minutes, and 25 minutes was spent face- to-face with the patient discussing discharge plans and instructions. CONDITION ON DISCHARGE: Stable. Reviewed by GREGORIO ODONNELL 08/29/16 1778 CC: Dr. So * [id number]/CPS #: [id number] MTDD
[2016-08-22] MEDS: Spironolactone TAB* 25 MG PO SCH (15:24)
== END 2016-08-22 15:50 | DRG 902 ==
LOC: ED 16:15 → UNDOADMIN 20:25 → MEDTELE 20:25 → SSU 08-14 12:00
PROVIDERS: ADMIT Hospitalist; ATTEND Hospitalist
PROC: 30233N1 Transfusion of Nonautologous Red Blood Cells into Peripheral Vein, Percutaneous Approach (ICD-10-PCS; 2016-08-11)
PROC: 0JBM0ZZ Excision of Left Upper Leg Subcutaneous Tissue and Fascia, Open Approach (ICD-10-PCS; principal; 2016-08-14 17:30)
PROC: 0JBM0ZZ Excision of Left Upper Leg Subcutaneous Tissue and Fascia, Open Approach (ICD-10-PCS; 2016-08-20)
PROC: 2W1PX6Z Compression of Left Upper Leg using Pressure Dressing (ICD-10-PCS; 2016-08-20)
DX: T81.89XA Other complications of procedures, not elsewhere classified, initial encounter (principal); K62.5 Hemorrhage of anus and rectum; N17.9 Acute kidney failure, unspecified; D69.6 Thrombocytopenia, unspecified; I24.8 Other forms of acute ischemic heart disease; E87.70 Fluid overload, unspecified; E66.01 Morbid (severe) obesity due to excess calories; D62 Acute posthemorrhagic anemia; K74.60 Unspecified cirrhosis of liver; N18.9 Chronic kidney disease, unspecified; K21.9 Gastro-esophageal reflux disease without esophagitis; F32.9 Major depressive disorder, single episode, unspecified; K76.0 Fatty (change of) liver, not elsewhere classified; G40.909 Epilepsy, unspecified, not intractable, without status epilepticus; D53.9 Nutritional anemia, unspecified; Z66 Do not resuscitate; Y83.8 Other surgical procedures as the cause of abnormal reaction of the patient, or of later complication, without mention of misadventure at the time of the procedure; I45.10 Unspecified right bundle-branch block; R60.1 Generalized edema; M16.12 Unilateral primary osteoarthritis, left hip; Z98.49 Cataract extraction status, unspecified eye; Z83.79 Family history of other diseases of the digestive system; Z87.891 Personal history of nicotine dependence; Z86.010 Personal history of colon polyps; Z68.35 Body mass index [BMI] 35.0-35.9, adult
CPT/HCPCS: 36415; 80048; 80053; 80202; 82140; 82272; 82607; 82728; 82746; 83540; 83550; 84134; 84484; 85014; 85018; 85025; 85610; 85652; 86140; 86850; 86900; 86901; 86922; 87070; 87073; 87205; 87641; 88305; 93005; A9270-GY; J1100; J1170; J1885; J1940; J2001; J2250; J2270; J2405; J2543; J2704; J3010; J3370; P9040

== ENCOUNTER 2016-09-29 15:57 | Inpatient (IN) | payer MEDICARE, MEDICAID ==
[2016-09-29] MEDS ORDERED: diPHENhydraMINE PO* 25 MG PO PRN (17:07)
[2016-09-29] MEDS ORDERED: oxyCODONE/Acetamin 5/325 MG* TAB PO PRN ×2 (17:07)
[2016-09-29] MEDS ORDERED: guaiFENesin LIQ* 100 MG/5 ML UDC PO PRN (17:07)
[2016-09-29] MEDS ORDERED: DOXYcycline IV* 100 MG in NS 0.9% 250 ML* 250 ML IVPB SCH (18:00)
[2016-09-29 18:35] LABS: Hematocrit 23 % (35-47); Hemoglobin 7.4 g/dl (12.0-16.0); Mean Corpuscular HGB Conc 32 g/dl (31-36); Mean Corpuscular Hemoglobin 31 pg (27-31); Mean Corpuscular Volume 95 fL (80-97); Mean Platelet Volume 9 um3 (7.4-10.4); Red Blood Count 2.41 10^6/ul (4.0-5.4); Red Cell Distribution Width 21 % (10.5-15); White Blood Count 12.8 10^3/ul (3.5-10.8)
[2016-09-29 18:36] LABS: Comments Flag Yes
[2016-09-29] MEDS: RiFAXimin* 550 MG TAB PO SCH (18:46)
--- NOTE | 2016-09-29 20:49 | HP ---
CONTINUATION ADDENDUM NOW INCLUDED ON THIS REPORT HISTORY AND PHYSICAL: DATE OF ADMISSION: 09/29/16 TIME OF EVALUATION: 4:15 p.m. PRIMARY CARE PROVIDER: Dr. Muro. WOUND CLINIC NURSE: Shy Cox NP ORTHOPEDIST: Dr. Edward Rizzo. INFECTIOUS DISEASE SPECIALIST: Dr. Lemus. PHYSICIAN AT [facility]: Dr. Garry Rogers. CHIEF COMPLAINT: "I was sent here" HISTORY OF PRESENT ILLNESS: Ms. Ford is a 75-year-old lady with history of cirrhosis secondary to non-alcoholic fatty liver disease, hepatic encephalopathy , GERD, seizure disorder, chronic anemia, status post left hip closed reduction and internal fixation on 07/09/16 followed by wound re-exploration on 07/16/16 complicated with possible infection, lower GI bleed, who presented to her usual appointment at the wound clinic today and was referred for admission due to cellulitis. The patient's history is complex. She was initially hospitalized from July 09 to July 25 after sustaining a left intertrochanteric hip fracture. She was taken to the operating room on July 09 for a closed reduction and gamma nail fixation. On July 16, she was taken back to the operating room for exploration of her hip wound as there appeared to be no significant healing despite being 6 days postop. On July 25, the patient was transferred to [facility] for subacute rehab. She was again admitted on August 11 after episodes of fall and episodes of bright red blood in her stool. She was discharged back to [facility] on August 22 under the impression of possible gastrointestinal bleed, thrombocytopenia, and chronic anemia. CONTINUATION ADDENDUM: The patient was once again discharged to [facility] for rehab and she was being managed as an outpatient. She was seen by Dr. Lemus on 09/26/16. His recommendation was to start doxycycline 100 mg p.o. b.i.d. for 1 month as there seemed to be a sinus tract forming in the base of the ulcer. By report, it was previously not felt to go down to the bone or hardware, but given persistence, he would consider long- term suppression. His recommendation was for CRP, CBC, and CMP and to follow up with him in 3 to 4 weeks. I went through her medication list from [facility] and apparently, doxycycline has not yet been started. Today, the patient came to her usual appointment at the wound clinic and was seen by Shy Cox who had seen the wound before. She found the wound had a small amount of necrotic tissue within the wound bed and performed debridement. She also noted that there was more periwound erythema. The area was hot and she called the hospitalist service for further evaluation as she felt that the patient was developing an infection. The patient states she has been feeling her usual. She denies any significant pain at this time. No fever. No chills. No shortness of breath or any other complaints. PAST MEDICAL HISTORY: 1. 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 2. History of hepatic encephalopathy. 3. GERD. 4. Seizure disorder. 5. Chronic thrombocytopenia. 6. Chronic anemia. 7. Status post cataract surgery. 8. Status post left hip closed reduction and internal fixation on 07/09/16 with subsequent complications as described above. 9. Possible episodes of GI bleed in July 2016. 10. CKD stage 3. MEDICATIONS: As per [facility] list include: 1. Benadryl 25 mg p.o. q.6 hours p.r.n. itching. 2. Furosemide 60 mg p.o. daily at 9 a.m. and 20 mg p.o. daily at 1 p.m. 3. Guaifenesin 10 mL p.o. q.4 hours p.r.n. cough. 4. Lactulose 45 mL p.o. 4 times a day. 5. Citrucel 500 mg p.o. b.i.d. 6. Multivitamin 1 tablet p.o. daily. 7. Fish oil 1200 mg p.o. daily. 8. Omeprazole 20 mg p.o. b.i.d. 9. Oxycodone 5/325 one tablet p.o. q.4 hours p.r.n. pain level 1 through 5 and 2 tablets p.o. q.4 hours p.r.n. pain level 6 to 10. 10. Potassium chloride 20 mEq p.o. daily. 11. Rifaximin 550 mg p.o. b.i.d. 12. Spironolactone 100 mg p.o. daily. ALLERGIES: No known drug allergies. FAMILY HISTORY: Her mother is alive at 101 years of age with no significant medical history. Her father of pulmonary embolism. The patient has a sister who also has cirrhosis. SOCIAL HISTORY: The patient is a former smoker. She quit more than 15 years ago. No history of alcohol use. 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 She is , 2 children. Her son, Shashi Ford, is her healthcare proxy. His phone number is [phone]. REVIEW OF SYSTEMS: A 14-point review of systems was performed and all the pertinent positive and negative findings are in HPI. PHYSICAL EXAMINATION GENERAL: The patient is a pleasant elderly lady, lying in bed in no acute distress. VITAL SIGNS: Temperature 97.5, heart rate is 96, respiratory rate is 16, oxygen saturation is 100% on room air, blood pressure is 135/62. HEENT: Pupils are equal. Moist mucous membranes. Mucous membranes are pale. CHEST: Breath sounds present bilaterally with no added sounds, but diminished in both bases. CVS: Normal S1, S2. Regular rate and rhythm. ABDOMEN: Soft, nontender, nondistended, but there is abdominal wall edema. EXTREMITIES: There is moderate to severe bilateral lower extremity edema all the way up to her thigh crease. NEURO: The patient is alert, awake, and oriented x3. Able to move all extremities. SKIN: Warm and dry. She has a wound to her left hip measuring 2 x 3.5 cm. Her dressing change had already been performed. So, at this point, the base of the wound looks clean. She does have surrounding erythema, but no discharge at this point. There is also an area of erythema on the inner aspect of her left calf, but no open area. LABORATORY AND IMAGING DATA: The patient had laboratory tests performed earlier today, included a CBC that showed WBC of 13.3, hemoglobin of 6.5, hematocrit of 20, platelets of 64 with 82% neutrophils. Chemistry showed a sodium of 125, potassium 4.2, chloride of 101, bicarb of 20, BUN of 21, creatinine of 1.6, glucose of 158, calcium 7.4. Total bilirubin of 2.8, AST of 34, ALT of 26, alk phos of 147, ammonia of 119. Total protein of 4.4 with albumin of 1.5. Vitamin B12 was greater than 1400 and vitamin D was 52. ASSESSMENT AND PLAN: Ms. Ford is a 75-year-old lady with past medical history of cirrhosis, chronic anemia, chronic thrombocytopenia, hepatic encephalopathy, gastroesophageal reflux disease, seizure disorder, status post left hip fracture with closed reduction and gamma nail fixation on July 09 , complicated by wound nonhealing and possible infection at this point. 1. Left hip wound infection: As per Dr. Lemus's note, the patient's culture from July grew Enterococcus and Klebsiella but he felt that this was superficial swab of the wound that was present then. Today at the wound clinic, another culture was sent. His recommendation had been to start doxycycline 100 mg twice a day for at least 30 days and apparently this has not been started yet at [facility], as this medication is not listed on her MAR. I am going to start her on doxycycline at this point and follow up the culture results sent at the wound clinic. The recommendation is to do dressing changes every 3 days with Medihoney Alginate. The last dressing change was done today. 2. Anemia: The patient is chronically anemic with a hemoglobin around 7.2. She denies any episodes of bleeding. Her vital signs are stable at this time and considering her number, she actually looks pretty good at this point. I am going to repeat her CBC and we will transfuse if her number is really below 7. 3. Chronic thrombocytopenia: The patient's number has fluctuated around 60 to 70. She has no signs of active bleeding at this time. 4. Liver cirrhosis with anasarca: We will continue diuresis. The patient's weight today is recommended at 180 pounds and this seems to be a drop as she was greater than 200 pounds when she was discharged on August 22. We will continue diuretics and monitor her daily weights. 5. History of hepatic encephalopathy: Although the patient's ammonia is elevated today, her mental status appears to be intact. I am going to continue lactulose and rifaximin and repeat her ammonia level tomorrow. 6. Chronic kidney disease stage 3: The patient's creatinine is 1.65 today, higher from her last test a week ago at 1.16. Would avoid fluids at this time considering her significant anasarca, but would consider giving her blood if her hemoglobin is truly less than 7. 7. Hyponatremia secondary to severe edema: We will continue to monitor, but as mentioned above, her mental status is intact at this point. 8. DVT prophylaxis: The patient has a score of 6 on the DVT Prophylaxis Risk Assessment Guide, but pharmacological prophylaxis is contraindicated on the patient with this possible recent episode of GI bleed and also chronic thrombocytopenia. At this point, we are just going to use SCDs. 9. Code status: The patient is a do not resuscitate and there is a MOLST form in her chart to reflect it. TIME SPENT: Approximately 60 minutes were spent with the patient interview, medical records review, physical examination to complete this admission, more than half this time was spent [id number] with the patient and coordination of care. CC: Dr. Muro; Shy Cox, KACIE; Dr. Edward Rizzo; Dr. Lemus; Dr. Garry Rogers * [id number]/CPS #: [id number] #: [id number] [facility]ricia
--- NOTE | 2016-09-29 20:57 | HP ---
HISTORY AND PHYSICAL: * ADDENDUM: DATE OF ADMISSION: 09/29/16 The patient was once again discharged to [facility] for rehab and she was being managed as an outpatient. She was seen by Dr. Lemus on 09/26/16. His recommendation was to start doxycycline 100 mg p.o. b.i.d. for 1 month as there seemed to be a sinus tract forming in the base of the ulcer. By report, it was previously not felt to go down to the bone or hardware, but given persistence, he would consider long- term suppression. His recommendation was for CRP, CBC, and CMP and to follow up with him in 3 to 4 weeks. I went through her medication list from [facility] and apparently, doxycycline has not yet been started. Today, the patient came to her usual appointment at the wound clinic and was seen by Shy Cox who had seen the wound before. She found the wound had a small amount of necrotic tissue within the wound bed and performed debridement. She also noted that there was more periwound erythema. The area was hot and she called the hospitalist service for further evaluation as she felt that the patient was developing an infection. The patient states she has been feeling her usual. She denies any significant pain at this time. No fever. No chills. No shortness of breath or any other complaints. PAST MEDICAL HISTORY: 1. 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 2. History of hepatic encephalopathy. 3. GERD. 4. Seizure disorder. 5. Chronic thrombocytopenia. 6. Chronic anemia. 7. Status post cataract surgery. 8. Status post left hip closed reduction and internal fixation on 07/09/16 with subsequent complications as described above. 9. Possible episodes of GI bleed in July 2016. 10. CKD stage 3. MEDICATIONS: As per [facility] list include: 1. Benadryl 25 mg p.o. q.6 hours p.r.n. itching. 2. Furosemide 60 mg p.o. daily at 9 a.m. and 20 mg p.o. daily at 1 p.m. 3. Guaifenesin 10 mL p.o. q.4 hours p.r.n. cough. 4. Lactulose 45 mL p.o. 4 times a day. 5. Citrucel 500 mg p.o. b.i.d. 6. Multivitamin 1 tablet p.o. daily. 7. Fish oil 1200 mg p.o. daily. 8. Omeprazole 20 mg p.o. b.i.d. 9. Oxycodone 5/325 one tablet p.o. q.4 hours p.r.n. pain level 1 through 5 and 2 tablets p.o. q.4 hours p.r.n. pain level 6 to 10. 10. Potassium chloride 20 mEq p.o. daily. 11. Rifaximin 550 mg p.o. b.i.d. 12. Spironolactone 100 mg p.o. daily. ALLERGIES: No known drug allergies. FAMILY HISTORY: Her mother is alive at 101 years of age with no significant medical history. Her father of pulmonary embolism. The patient has a sister who also has cirrhosis. SOCIAL HISTORY: The patient is a former smoker. She quit more than 15 years ago. No history of alcohol use. 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 She is , 2 children. Her son, Shashi Ford, is her healthcare proxy. His phone number is [phone]. REVIEW OF SYSTEMS: A 14-point review of systems was performed and all the pertinent positive and negative findings are in HPI. PHYSICAL EXAMINATION GENERAL: The patient is a pleasant elderly lady, lying in bed in no acute distress. VITAL SIGNS: Temperature 97.5, heart rate is 96, respiratory rate is 16, oxygen saturation is 100% on room air, blood pressure is 135/62. HEENT: Pupils are equal. Moist mucous membranes. Mucous membranes are pale. CHEST: Breath sounds present bilaterally with no added sounds, but diminished in both bases. CVS: Normal S1, S2. Regular rate and rhythm. ABDOMEN: Soft, nontender, nondistended, but there is abdominal wall edema. EXTREMITIES: There is moderate to severe bilateral lower extremity edema all the way up to her thigh crease. NEURO: The patient is alert, awake, and oriented x3. Able to move all extremities. SKIN: Warm and dry. She has a wound to her left hip measuring 2 x 3.5 cm. Her dressing change had already been performed. So, at this point, the base of the wound looks clean. She does have surrounding erythema, but no discharge at this point. There is also an area of erythema on the inner aspect of her left calf, but no open area. LABORATORY AND IMAGING DATA: The patient had laboratory tests performed earlier today, included a CBC that showed WBC of 13.3, hemoglobin of 6.5, hematocrit of 20, platelets of 64 with 82% neutrophils. Chemistry showed a sodium of 125, potassium 4.2, chloride of 101, bicarb of 20, BUN of 21, creatinine of 1.6, glucose of 158, calcium 7.4. Total bilirubin of 2.8, AST of 34, ALT of 26, alk phos of 147, ammonia of 119. Total protein of 4.4 with albumin of 1.5. Vitamin B12 was greater than 1400 and vitamin D was 52. ASSESSMENT AND PLAN: Ms. Ford is a 75-year-old lady with past medical history of cirrhosis, chronic anemia, chronic thrombocytopenia, hepatic encephalopathy, gastroesophageal reflux disease, seizure disorder, status post left hip fracture with closed reduction and gamma nail fixation on July 09 , complicated by wound nonhealing and possible infection at this point. 1. Left hip wound infection: As per Dr. Lemus's note, the patient's culture from July grew Enterococcus and Klebsiella but he felt that this was superficial swab of the wound that was present then. Today at the wound clinic, another culture was sent. His recommendation had been to start doxycycline 100 mg twice a day for at least 30 days and apparently this has not been started yet at [facility], as this medication is not listed on her OCT. I am going to start her on doxycycline at this point and follow up the culture results sent at the wound clinic. The recommendation is to do dressing changes every 3 days with Medihoney Alginate. The last dressing change was done today. 2. Anemia: The patient is chronically anemic with a hemoglobin around 7.2. She denies any episodes of bleeding. Her vital signs are stable at this time and considering her number, she actually looks pretty good at this point. I am going to repeat her CBC and we will transfuse if her number is really below 7. 3. Chronic thrombocytopenia: The patient's number has fluctuated around 60 to 70. She has no signs of active bleeding at this time. 4. Liver cirrhosis with anasarca: We will continue diuresis. The patient's weight today is recommended at 180 pounds and this seems to be a drop as she was greater than 200 pounds when she was discharged on August 22. We will continue diuretics and monitor her daily weights. 5. History of hepatic encephalopathy: Although the patient's ammonia is elevated today, her mental status appears to be intact. I am going to continue lactulose and rifaximin and repeat her ammonia level tomorrow. 6. Chronic kidney disease stage 3: The patient's creatinine is 1.65 today, higher from her last test a week ago at 1.16. Would avoid fluids at this time considering her significant anasarca, but would consider giving her blood if her hemoglobin is truly less than 7. 7. Hyponatremia secondary to severe edema: We will continue to monitor, but as mentioned above, her mental status is intact at this point. 8. DVT prophylaxis: The patient has a score of 6 on the DVT Prophylaxis Risk Assessment Guide, but pharmacological prophylaxis is contraindicated on the patient with this possible recent episode of GI bleed and also chronic thrombocytopenia. At this point, we are just going to use SCDs. 9. Code status: The patient is a do not resuscitate and there is a MOLST form in her chart to reflect it. TIME SPENT: Approximately 60 minutes were spent with the patient interview, medical records review, physical examination to complete this admission, more than half this time was spent [id number] with the patient and coordination of care. [id number]/[facility] #: [id number] FEROZ
[2016-09-29] MEDS ORDERED: RiFAXimin* 550 MG TAB PO SCH (21:00)
[2016-09-29] MEDS: Lactulose* 15 ML UDC PO SCH (21:06)
[2016-09-29] MEDS: Omeprazole CAP* 20 MG PO SCH (21:06)
[2016-09-29] MEDS: DOXYcycline IV* 100 MG in NS 0.9% 250 ML* 250 ML IVPB SCH (21:19)
[2016-09-29] MEDS: METHYLCELLULOSE 500 MG PO SCH (21:21)
[2016-09-30 05:26] LABS: Comments Flag Yes; Hematocrit 20 % (35-47); Mean Corpuscular HGB Conc 33 g/dl (31-36); Mean Corpuscular Hemoglobin 31 pg (27-31); Mean Corpuscular Volume 94 fL (80-97); Mean Platelet Volume 9 um3 (7.4-10.4); Red Blood Count 2.11 10^6/ul (4.0-5.4); Red Cell Distribution Width 20 % (10.5-15); White Blood Count 12.8 10^3/ul (3.5-10.8)
[2016-09-30 05:27] LABS: Add Diff/Slide Review? Slide Review Added; Hemoglobin 6.5 g/dl (12.0-16.0)
[2016-09-30 05:33] LABS: ALT 24 U/L (7-52); AST 35 U/L (13-39); Alkaline Phosphatase 145 U/L (34-104); Anion Gap 6 mmol/L (2-11); BUN/Creatinine Ratio 14.4 (8-20); Blood Urea Nitrogen 22 mg/dL (6-24); CO2 Carbon Dioxide 20 mmol/L (22-32); Calcium 7.5 mg/dL (8.6-10.3); Chloride 103 mmol/L (101-111); EGFR African American 42.7 (>60); EGFR Non-African American 33.2 (>60); Glucose 85 mg/dL (70-100); Potassium 4.5 mmol/L (3.5-5.0); Sodium 129 mmol/L (133-145); Total Protein 4.4 g/dL (6.4-8.9)
[2016-09-30 05:58] LABS: Albumin < 1.5 g/dL (3.2-5.2); Globulin 2.9 g/dL (2-4)
[2016-09-30 06:14] LABS: Prealbumin < 3 mg/dL (18-38)
[2016-09-30 06:58] LABS: Hypochromasia 1+
[2016-09-30] MEDS: METHYLCELLULOSE 500 MG PO SCH ×2 (09:22→21:23)
[2016-09-30] MEDS: DOXYcycline IV* 100 MG in NS 0.9% 250 ML* 250 ML IVPB SCH ×2 (10:41→21:40)
[2016-09-30] MEDS: RiFAXimin* 550 MG TAB PO SCH ×2 (10:41→21:40)
[2016-09-30] MEDS: Multivitamins/Minerals TAB PO SCH (10:41)
[2016-09-30] MEDS: Spironolactone TAB* 25 MG PO SCH (10:41)
[2016-09-30] MEDS: Potassium Chlor TAB* 20 MEQ TAB.ER PO SCH (10:41)
[2016-09-30] MEDS: Lactulose* 15 ML UDC PO SCH ×4 (10:41→21:40)
[2016-09-30] MEDS: Furosemide TAB* 20 MG PO SCH ×2 (10:42→14:08)
[2016-09-30] MEDS: Omeprazole CAP* 20 MG PO SCH ×2 (10:42→21:41)
--- NOTE | 2016-09-30 14:45 | PN ---
Subjective Date of Service: 09/30/16 Interval History: Pt is feeling tired and wiped out. She denies any pain at this time. No SOB. She does not think she has improved at all over the last several weeks. Objective Active Medications: Diphenhydramine HCl (Benadryl Po*) 25 mg PO Q6H PRN PRN Reason: ITCHING Furosemide (Lasix Tab*) 60 mg PO DAILY@0900 [facility] Last Admin: 09/30/16 10:42 Dose: 60 mg Furosemide (Lasix Tab*) 20 mg PO DAILY@1300 [facility] Last Admin: 09/30/16 14:08 Dose: 20 mg Guaifenesin (Robitussin*) 10 ml PO Q4H PRN PRN Reason: COUGH Doxycycline Hyclate 100 mg/ (Sodium Chloride) 250 mls @ 250 mls/hr IVPB 0900, 2100 [facility] Last Admin: 09/30/16 10:41 Dose: 250 mls/hr Lactulose (Lactulose*) 45 ml PO QID [facility] Last Admin: 09/30/16 14:08 Dose: 45 ml Multivitamins/Minerals (Theragran/Minerals Tab*) 1 tab PO DAILY [facility] Last Admin: 09/30/16 10:41 Dose: 1 tab (Methylcellulose ( Laxative) [Citrucel] 500 Mg) 500 mg PO BID [facility] Last Admin: 09/30/16 09:22 Dose: Not Given Nystatin (Nystatin Cream*) 1 applic TOPICAL TID [facility] Omeprazole (Prilosec Cap*) 20 mg PO BID [facility] Last Admin: 09/30/16 10:42 Dose: 20 mg Oxycodone/Acetaminophen (Percocet 5/325 Tab*) 2 tab PO Q4H PRN PRN Reason: Pain 6-10 Oxycodone/Acetaminophen (Percocet 5/325 Tab*) 1 tab PO Q4H PRN PRN Reason: Pain 1-5 Potassium Chloride (Klor Con Er Tab*) 20 meq PO DAILY [facility] Last Admin: 09/30/16 10:41 Dose: 20 meq Rifaximin (Xifaxan*) 550 mg PO 0900,2100 [facility] Last Admin: 09/30/16 10:41 Dose: 550 mg Spironolactone (Aldactone Tab*) 100 mg PO DAILY [facility] Last Admin: 09/30/16 10:41 Dose: 100 mg Vital Signs 09/29/16 09/29/16 09/29/16 16:20 17:51 20:00 Temperature 97.5 F Pulse Rate 96 Respiratory 16 16 18 Rate Blood Pressure 135/62 (mmHg) O2 Sat by Pulse 100 Oximetry 09/29/16 09/29/16 09/30/16 20:07 23:32 03:51 Temperature 97.8 F 97.7 F 98.2 F Pulse Rate 96 95 100 Respiratory 16 16 16 Rate Blood Pressure 119/39 106/52 121/44 (mmHg) O2 Sat by Pulse 99 98 100 Oximetry 09/30/16 09/30/16 07:20 07:53 Temperature 97.5 F Pulse Rate 102 Respiratory 18 18 Rate Blood Pressure 129/38 (mmHg) O2 Sat by Pulse 97 Oximetry Oxygen Devices in Use Now: None Appearance: Elderly female sitting up in bed, NAD Eyes: No Scleral Icterus Ears/Nose/Mouth/Throat: Mucous Membranes Moist Respiratory: Symmetrical Chest Expansion and Respiratory Effort, Clear to Auscultation - anteriorly Cardiovascular: NL Sounds; No Murmurs; No JVD, RRR, - - marked anasarca to the waist Abdominal: NL Sounds; No Tenderness; No Distention Extremities: No Clubbing, Cyanosis Skin: No Nodules or Sclerosis, - - L hip wound covered in saturated mepilex- will view wound when nurse does dressing change Neurological: Alert and Oriented x 3 Result Diagrams: 09/30/16 05:08 09/30/16 05:08 Assess/Plan/Problems-Billing Ms Ford is a 75 yo F who has a h/o L hip fracture s/p repair 06/2016 with poor wound healing and possible infection, 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 - Patient Problems (1) Left hip postoperative wound infection Current Visit: Yes Status: Acute Code(s): T81.4XXA - INFECTION FOLLOWING A PROCEDURE, INITIAL ENCOUNTER; B99.9 - UNSPECIFIED INFECTIOUS DISEASE SNOMED Code(s): 64927145 Comment: Continue IV doxycycline-will repeat CBC tomorrow. No improvement in WBC count today. If no improvment tomorrow may need to broaden her Abx coverage. Will inspect the wound with nursing when the dressing is changed. (2) Protein calorie malnutrition Current Visit: Yes Status: Acute Code(s): E46 - UNSPECIFIED PROTEIN-CALORIE MALNUTRITION SNOMED Code(s): 202174374 Comment: The patient has severe protein calorie malnutrition. Encourage improved protein intake. Order ensure between meals. 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 Continue lactulose, rifaximin, lasix and spironolactone. (4) Hepatic encephalopathy Current Visit: Yes Status: Chronic Code(s): K72.90 - HEPATIC FAILURE, UNSPECIFIED WITHOUT COMA SNOMED Code(s): 17866107 Comment: No signs of encephalopathy at this time. Continue rifaximin and lactulose. (5) Anemia Current Visit: Yes Status: Chronic Code(s): D64.9 - ANEMIA, UNSPECIFIED SNOMED Code(s): 525668948 Comment: H/H lower today. Will transfuse 1 unit PRBC today. Her significant anemia is likely secondary to her cirrhosis. Lab work from 07/2016 did not reveal her to be iron, B12 or folate deficient. (6) GERD (gastroesophageal reflux disease) Current Visit: Yes Status: Chronic Code(s): K21.9 - GASTRO-ESOPHAGEAL REFLUX DISEASE WITHOUT ESOPHAGITIS SNOMED Code(s): 541804503 Comment: Continue omeprazole. (7) DVT prophylaxis Current Visit: Yes Status: Acute Code(s): [id number] - SNOMED Code(s): 376260844 Comment: SCDs only secondary to marked thrombocytopenia. (8) DNR (do not resuscitate) Current Visit: Yes Status: Acute
[2016-09-30] MEDS: Nystatin CREAM* 15 GM TUBE TOPICAL SCH ×2 (17:26→21:42)
[2016-10-01] MEDS: Spironolactone TAB* 25 MG PO SCH (09:34)
[2016-10-01] MEDS: Furosemide TAB* 20 MG PO SCH ×2 (09:35→12:57)
[2016-10-01] MEDS: DOXYcycline IV* 100 MG in NS 0.9% 250 ML* 250 ML IVPB SCH ×2 (09:35→21:01)
[2016-10-01] MEDS: Omeprazole CAP* 20 MG PO SCH ×2 (09:35→21:06)
[2016-10-01] MEDS: Lactulose* 15 ML UDC PO SCH ×4 (09:36→21:05)
[2016-10-01] MEDS: RiFAXimin* 550 MG TAB PO SCH ×2 (09:36→21:06)
[2016-10-01] MEDS: Potassium Chlor TAB* 20 MEQ TAB.ER PO SCH (09:36)
[2016-10-01] MEDS: Multivitamins/Minerals TAB PO SCH (09:36)
[2016-10-01] MEDS: METHYLCELLULOSE 500 MG PO SCH ×2 (09:37→21:05)
[2016-10-01] MEDS: Nystatin CREAM* 15 GM TUBE TOPICAL SCH ×3 (09:53→21:07)
--- NOTE | 2016-10-01 12:04 | PN ---
Subjective Date of Service: 10/01/16 Interval History: Pt is feeling ok. Her only complaint currently is that she is tired. She denies any pain. No SOB. She states her last BM was this AM. Objective Active Medications: Diphenhydramine HCl (Benadryl Po*) 25 mg PO Q6H PRN PRN Reason: ITCHING Furosemide (Lasix Tab*) 60 mg PO DAILY@0900 [facility] Last Admin: 10/01/16 09:35 Dose: 60 mg Furosemide (Lasix Tab*) 20 mg PO DAILY@1300 [facility] Last Admin: 09/30/16 14:08 Dose: 20 mg Guaifenesin (Robitussin*) 10 ml PO Q4H PRN PRN Reason: COUGH Doxycycline Hyclate 100 mg/ (Sodium Chloride) 250 mls @ 250 mls/hr IVPB 0900, 2100 [facility] Last Admin: 10/01/16 09:35 Dose: 250 mls/hr Lactulose (Lactulose*) 45 ml PO QID [facility] Last Admin: 10/01/16 09:36 Dose: 45 ml Multivitamins/Minerals (Theragran/Minerals Tab*) 1 tab PO DAILY [facility] Last Admin: 10/01/16 09:36 Dose: 1 tab (Methylcellulose ( Laxative) [Citrucel] 500 Mg) 500 mg PO BID [facility] Last Admin: 10/01/16 09:37 Dose: Not Given Nystatin (Nystatin Cream*) 1 applic TOPICAL TID [facility] Last Admin: 10/01/16 09:53 Dose: 1 applic Omeprazole (Prilosec Cap*) 20 mg PO BID [facility] Last Admin: 10/01/16 09:35 Dose: 20 mg Oxycodone/Acetaminophen (Percocet 5/325 Tab*) 2 tab PO Q4H PRN PRN Reason: Pain 6-10 Oxycodone/Acetaminophen (Percocet 5/325 Tab*) 1 tab PO Q4H PRN PRN Reason: Pain 1-5 Potassium Chloride (Klor Con Er Tab*) 20 meq PO DAILY [facility] Last Admin: 10/01/16 09:36 Dose: 20 meq Rifaximin (Xifaxan*) 550 mg PO 0900,2100 [facility] Last Admin: 10/01/16 09:36 Dose: 550 mg Spironolactone (Aldactone Tab*) 100 mg PO DAILY [facility] Last Admin: 10/01/16 09:34 Dose: 100 mg Vital Signs 09/30/16 09/30/16 09/30/16 16:00 16:31 18:58 Temperature 98.0 F 98.1 F 98.9 F Pulse Rate 96 97 98 Respiratory 16 16 Rate Blood Pressure 133/42 125/39 128/50 (mmHg) O2 Sat by Pulse 98 97 99 Oximetry 09/30/16 09/30/16 10/01/16 21:55 23:49 07:58 Temperature 98.1 F 98.2 F Pulse Rate 96 107 Respiratory 18 16 18 Rate Blood Pressure 123/47 144/53 (mmHg) O2 Sat by Pulse 98 98 Oximetry Oxygen Devices in Use Now: None Appearance: Eldelry female sitting in a recliner chair sleeping, easily awakened to voice, NAD Eyes: No Scleral Icterus, - - mildy icteric sclera Ears/Nose/Mouth/Throat: Mucous Membranes Moist Respiratory: Symmetrical Chest Expansion and Respiratory Effort, Clear to Auscultation - anteriorly Cardiovascular: NL Sounds; No Murmurs; No JVD, - - irregularly irregular, mildly tachycardic Abdominal: NL Sounds; No Tenderness; No Distention Extremities: No Clubbing, Cyanosis Skin: No Nodules or Sclerosis, - - Ulcer inspected yesterday with nursing ~ [id number] and 2 cm deep, possible small sinus tract in the base of the wound, moderate surrounding erythema Neurological: Alert and Oriented x 3 Result Diagrams: 09/30/16 05:08 09/30/16 05:08 Assess/Plan/Problems-Billing Ms Ford is a 75 yo F who has a h/o L hip fracture s/p repair 06/2016 with poor wound healing and possible infection, 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 - Patient Problems (1) Left hip postoperative wound infection Current Visit: Yes Status: Acute Code(s): T81.4XXA - INFECTION FOLLOWING A PROCEDURE, INITIAL ENCOUNTER; B99.9 - UNSPECIFIED INFECTIOUS DISEASE SNOMED Code(s): 42025216 Comment: Continue IV doxycycline-repeat CBC is pending (not drawn this AM). Once the patient is back in bed will re-evaluate her hip wound. Possibly back to the [place] tomorrow to continue on oral Abx if the cellulitis appears to be improving. (2) Protein calorie malnutrition Current Visit: Yes Status: Acute Code(s): E46 - UNSPECIFIED PROTEIN-CALORIE MALNUTRITION SNOMED Code(s): 760245400 Comment: The patient has severe protein calorie malnutrition. Encourage improved protein intake. 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 Continue lactulose, rifaximin, lasix and spironolactone. She appears relatively compensated. (4) Hepatic encephalopathy Current Visit: Yes Status: Chronic Code(s): K72.90 - HEPATIC FAILURE, UNSPECIFIED WITHOUT COMA SNOMED Code(s): 66132395 Comment: No signs of encephalopathy at this time. Continue rifaximin and lactulose. (5) Anemia Current Visit: Yes Status: Chronic Code(s): D64.9 - ANEMIA, UNSPECIFIED SNOMED Code(s): 448015287 Comment: Repeat H/H pending. (6) GERD (gastroesophageal reflux disease) Current Visit: Yes Status: Chronic Code(s): K21.9 - GASTRO-ESOPHAGEAL REFLUX DISEASE WITHOUT ESOPHAGITIS SNOMED Code(s): 981616339 Comment: Continue omeprazole. (7) DVT prophylaxis Current Visit: Yes Status: Acute Code(s): LCS2665 - SNOMED Code(s): 834820176 Comment: SCDs only secondary to marked thrombocytopenia. (8) DNR (do not resuscitate) Current Visit: Yes Status: Acute
[2016-10-01 12:36] LABS: Hematocrit 23 % (35-47); Hemoglobin 7.4 g/dl (12.0-16.0); Mean Corpuscular HGB Conc 32 g/dl (31-36); Mean Corpuscular Hemoglobin 29 pg (27-31); Mean Corpuscular Volume 91 fL (80-97); Mean Platelet Volume 9 um3 (7.4-10.4); Red Blood Count 2.54 10^6/ul (4.0-5.4); Red Cell Distribution Width 26 % (10.5-15); White Blood Count 12.4 10^3/ul (3.5-10.8)
[2016-10-01 12:40] LABS: Comments Flag Yes
[2016-10-01 12:41] LABS: Add Diff/Slide Review? Slide Review Added
[2016-10-01 12:50] LABS: BUN/Creatinine Ratio 16.7 (8-20); Calcium 7.2 mg/dL (8.6-10.3); EGFR African American 50.6 (>60); EGFR Non-African American 39.3 (>60); Potassium 3.8 mmol/L (3.5-5.0)
[2016-10-01 13:03] LABS: Hypochromasia 2+; Immature Granulocytes 1 % (0-9); Myelocytes % 1 % (0-1); Neutrophil % 83 % (38-83)
[2016-10-01 13:04] LABS: Polychromasia 1+; Target Cells 1+
[2016-10-02] MEDS: Lactulose* 15 ML UDC PO SCH ×3 (08:00→21:22)
[2016-10-02] MEDS: Furosemide TAB* 20 MG PO SCH (08:01)
[2016-10-02] MEDS: Spironolactone TAB* 25 MG PO SCH (08:02)
[2016-10-02] MEDS: Omeprazole CAP* 20 MG PO SCH ×2 (08:03→21:23)
[2016-10-02] MEDS: Multivitamins/Minerals TAB PO SCH (08:04)
[2016-10-02] MEDS: METHYLCELLULOSE 500 MG PO SCH ×2 (08:05→21:22)
[2016-10-02] MEDS: Potassium Chlor TAB* 20 MEQ TAB.ER PO SCH (08:07)
[2016-10-02] MEDS: RiFAXimin* 550 MG TAB PO SCH ×2 (08:07→21:23)
[2016-10-02] MEDS: Nystatin CREAM* 15 GM TUBE TOPICAL SCH ×3 (08:08→21:22)
[2016-10-02] MEDS: DOXYcycline IV* 100 MG in NS 0.9% 250 ML* 250 ML IVPB SCH (08:10)
--- NOTE | 2016-10-02 12:04 | PN ---
Subjective Date of Service: 10/02/16 Interval History: Pt is feeling ok-she states "I'm here." She denies any pain or SOB. She does feel thirsty. Objective Active Medications: Diphenhydramine HCl (Benadryl Po*) 25 mg PO Q6H PRN PRN Reason: ITCHING Furosemide (Lasix Tab*) 60 mg PO DAILY@0900 [facility] Last Admin: 10/02/16 08:01 Dose: 60 mg Furosemide (Lasix Tab*) 20 mg PO DAILY@1300 [facility] Last Admin: 10/01/16 12:57 Dose: 20 mg Guaifenesin (Robitussin*) 10 ml PO Q4H PRN PRN Reason: COUGH Heparin Sodium (Porcine) (Heparin Flush Picc/Ml/Cvc(*)) 1 - 3 ml FLUSH 0600, 1800 [facility] PRN Reason: Protocol Last Admin: 10/02/16 05:56 Dose: 1 ml Cefepime HCl 1 gm/ Sodium (Chloride) 50 mls @ 100 mls/hr IVPB DAILY [facility] Lactulose (Lactulose*) 45 ml PO QID [facility] Last Admin: 10/02/16 08:00 Dose: 45 ml Multivitamins/Minerals (Theragran/Minerals Tab*) 1 tab PO DAILY [facility] Last Admin: 10/02/16 08:04 Dose: 1 tab (Methylcellulose ( Laxative) [Citrucel] 500 Mg) 500 mg PO BID [facility] Last Admin: 10/02/16 08:05 Dose: Not Given Nystatin (Nystatin Cream*) 1 applic TOPICAL TID [facility] Last Admin: 10/02/16 08:08 Dose: 1 applic Omeprazole (Prilosec Cap*) 20 mg PO BID [facility] Last Admin: 10/02/16 08:03 Dose: 20 mg Oxycodone/Acetaminophen (Percocet 5/325 Tab*) 2 tab PO Q4H PRN PRN Reason: Pain 6-10 Oxycodone/Acetaminophen (Percocet 5/325 Tab*) 1 tab PO Q4H PRN PRN Reason: Pain 1-5 Potassium Chloride (Klor Con Er Tab*) 20 meq PO DAILY [facility] Last Admin: 10/02/16 08:07 Dose: 20 meq Rifaximin (Xifaxan*) 550 mg PO 0900,2100 [facility] Last Admin: 10/02/16 08:07 Dose: 550 mg Spironolactone (Aldactone Tab*) 100 mg PO DAILY [facility] Last Admin: 10/02/16 08:02 Dose: 100 mg Vital Signs 10/01/16 10/01/16 10/01/16 15:22 16:05 20:00 Temperature 97.8 F Pulse Rate 109 105 Respiratory 15 18 18 Rate Blood Pressure 130/48 124/70 (mmHg) O2 Sat by Pulse 98 94 Oximetry 10/01/16 10/02/16 23:14 07:43 Temperature 99.1 F 97.7 F Pulse Rate 102 106 Respiratory 16 16 Rate Blood Pressure 143/51 134/55 (mmHg) O2 Sat by Pulse 97 98 Oximetry Oxygen Devices in Use Now: None Appearance: Elderly female sitting up in bed, NAD Eyes: - - mild scleral icterus Ears/Nose/Mouth/Throat: - - dry oral mucosa Respiratory: Symmetrical Chest Expansion and Respiratory Effort, Clear to Auscultation Cardiovascular: NL Sounds; No Murmurs; No JVD, - - mildly tachycardic, marked LE edema though less than yesterday Abdominal: NL Sounds; No Tenderness; No Distention Extremities: No Clubbing, Cyanosis Skin: No Nodules or Sclerosis, - - L hip wound not inspected today Neurological: Alert and Oriented x 3 Result Diagrams: 10/01/16 12:20 10/01/16 12:20 Assess/Plan/Problems-Billing Ms Ford is a 75 yo F who has a h/o L hip fracture s/p repair 06/2016 with poor wound healing and possible infection, 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 - Patient Problems (1) Left hip postoperative wound infection Current Visit: Yes Status: Acute Code(s): T81.4XXA - INFECTION FOLLOWING A PROCEDURE, INITIAL ENCOUNTER; B99.9 - UNSPECIFIED INFECTIOUS DISEASE SNOMED Code(s): 58580624 Comment: Will change to cefepime as her WBC count has not really improved. I am hopeful Dr. Lemus will be available this Thursday to discuss the case. Continue to follow and inspect the wound tomorrow. (2) Protein calorie malnutrition Current Visit: Yes Status: Acute Code(s): E46 - UNSPECIFIED PROTEIN-CALORIE MALNUTRITION SNOMED Code(s): 395617028 Comment: The patient has severe protein calorie malnutrition. Encourage improved protein intake. 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 Continue lactulose (reduce to TID as she is having >3 liquid stools per day) and rifaximin. Hold lasix and spironolactone as she is now appearing volume deplete with tachycardia and much lessened LE edema. (4) Hepatic encephalopathy Current Visit: Yes Status: Chronic Code(s): K72.90 - HEPATIC FAILURE, UNSPECIFIED WITHOUT COMA SNOMED Code(s): 99961438 Comment: No signs of encephalopathy at this time. Continue rifaximin and lactulose. (5) Anemia Current Visit: Yes Status: Chronic Code(s): D64.9 - ANEMIA, UNSPECIFIED SNOMED Code(s): 745534532 Comment: H/H stable. Continue to monitor. (6) GERD (gastroesophageal reflux disease) Current Visit: Yes Status: Chronic Code(s): K21.9 - GASTRO-ESOPHAGEAL REFLUX DISEASE WITHOUT ESOPHAGITIS SNOMED Code(s): 975065560 Comment: Continue omeprazole. (7) DVT prophylaxis Current Visit: Yes Status: Acute Code(s): RHR7531 - SNOMED Code(s): 682726228 Comment: SCDs only secondary to marked thrombocytopenia. (8) DNR (do not resuscitate) Current Visit: Yes Status: Acute
[2016-10-02] MEDS: Cefepime(*) 1 GM in NS 0.9% 50 ML* 50 ML IVPB SCH (12:28)
[2016-10-03 06:23] LABS: Hematocrit 22 % (35-47); Hemoglobin 7.3 g/dl (12.0-16.0); Mean Corpuscular HGB Conc 33 g/dl (31-36); Mean Corpuscular Hemoglobin 30 pg (27-31); Mean Corpuscular Volume 91 fL (80-97); Mean Platelet Volume 9 um3 (7.4-10.4); Red Blood Count 2.44 10^6/ul (4.0-5.4); Red Cell Distribution Width 25 % (10.5-15); White Blood Count 10.3 10^3/ul (3.5-10.8)
[2016-10-03 06:29] LABS: Comments Flag Yes
[2016-10-03 06:39] LABS: BUN/Creatinine Ratio 16.5 (8-20); Calcium 7.5 mg/dL (8.6-10.3); EGFR African American 59.3 (>60); EGFR Non-African American 46.1 (>60); Potassium 3.7 mmol/L (3.5-5.0)
[2016-10-03 07:44] VITALS: BP 140/43
--- NOTE | 2016-10-03 09:02 | PN ---
Subjective Date of Service: 10/03/16 Interval History: Pt is feeling well. She denies any pain. No SOB. She continues to have loose stools that are essentially unchanged. Objective Active Medications: Diphenhydramine HCl (Benadryl Po*) 25 mg PO Q6H PRN PRN Reason: ITCHING Guaifenesin (Robitussin*) 10 ml PO Q4H PRN PRN Reason: COUGH Heparin Sodium (Porcine) (Heparin Flush Picc/Ml/Cvc(*)) 1 - 3 ml FLUSH 0600, 1800 [facility] PRN Reason: Protocol Last Admin: 10/03/16 04:55 Dose: Not Given Cefepime HCl 1 gm/ Sodium (Chloride) 50 mls @ 100 mls/hr IVPB DAILY [facility] Last Admin: 10/02/16 12:28 Dose: 100 mls/hr Lactulose (Lactulose*) 45 ml PO TID [facility] Last Admin: 10/02/16 21:22 Dose: 45 ml Multivitamins/Minerals (Theragran/Minerals Tab*) 1 tab PO DAILY [facility] Last Admin: 10/02/16 08:04 Dose: 1 tab (Methylcellulose ( Laxative) [Citrucel] 500 Mg) 500 mg PO BID [facility] Last Admin: 10/02/16 21:22 Dose: Not Given Nystatin (Nystatin Cream*) 1 applic TOPICAL TID [facility] Last Admin: 10/02/16 21:22 Dose: 1 applic Omeprazole (Prilosec Cap*) 20 mg PO BID [facility] Last Admin: 10/02/16 21:23 Dose: 20 mg Oxycodone/Acetaminophen (Percocet 5/325 Tab*) 2 tab PO Q4H PRN PRN Reason: Pain 6-10 Oxycodone/Acetaminophen (Percocet 5/325 Tab*) 1 tab PO Q4H PRN PRN Reason: Pain 1-5 Potassium Chloride (Klor Con Er Tab*) 20 meq PO DAILY [facility] Last Admin: 10/02/16 08:07 Dose: 20 meq Rifaximin (Xifaxan*) 550 mg PO 0900,2100 [facility] Last Admin: 10/02/16 21:23 Dose: 550 mg Vital Signs 10/02/16 10/02/16 10/03/16 15:11 20:00 04:59 Temperature 97.9 F Pulse Rate 101 103 Respiratory 16 18 21 Rate Blood Pressure 130/41 134/52 (mmHg) O2 Sat by Pulse 98 97 Oximetry 10/03/16 07:17 Temperature 98.2 F Pulse Rate 101 Respiratory 18 Rate Blood Pressure 140/43 (mmHg) O2 Sat by Pulse 98 Oximetry Oxygen Devices in Use Now: None Appearance: Elderly female sitting up in bed, eating breakfast, NAD Eyes: No Scleral Icterus Ears/Nose/Mouth/Throat: Mucous Membranes Moist Respiratory: Symmetrical Chest Expansion and Respiratory Effort, Clear to Auscultation Cardiovascular: NL Sounds; No Murmurs; No JVD, - - mildly tachycardic but regular, marked LE edema though the edema in her feet is less Abdominal: NL Sounds; No Tenderness; No Distention Extremities: No Clubbing, Cyanosis Skin: No Nodules or Sclerosis, - - wound not inspected at this time as the patient is eating Neurological: Alert and Oriented x 3 Result Diagrams: 10/03/16 05:59 10/03/16 05:59 Assess/Plan/Problems-Billing Ms Ford is a 75 yo F who has a h/o L hip fracture s/p repair 06/2016 with poor wound healing and possible infection, 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 - Patient Problems (1) Left hip postoperative wound infection Current Visit: Yes Status: Acute Code(s): T81.4XXA - INFECTION FOLLOWING A PROCEDURE, INITIAL ENCOUNTER; B99.9 - UNSPECIFIED INFECTIOUS DISEASE SNOMED Code(s): 38744234 Comment: WBC count has finally normalized. Will inspect her L hip wound after she eats. If the erythema is better I think she will be able to be discharged back to [facility] and continue on Bactrim with close ID follow- up. (2) Protein calorie malnutrition Current Visit: Yes Status: Acute Code(s): E46 - UNSPECIFIED PROTEIN-CALORIE MALNUTRITION SNOMED Code(s): 628260708 Comment: The patient has severe protein calorie malnutrition. Encourage improved protein intake. Pt is drinking ensure. 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 Continue lactulose (reduced to TID) and rifaximin. Hold lasix and spironolactone again today but would restart tomorrow AM as she remains tachycardic possibly from intravascular volume depletion. (4) Hepatic encephalopathy Current Visit: Yes Status: Chronic Code(s): K72.90 - HEPATIC FAILURE, UNSPECIFIED WITHOUT COMA SNOMED Code(s): 78414360 Comment: No signs of encephalopathy at this time. Continue rifaximin and lactulose. (5) Anemia Current Visit: Yes Status: Chronic Code(s): D64.9 - ANEMIA, UNSPECIFIED SNOMED Code(s): 681971141 Comment: H/H stable after transfusion of 1 unit PRBC. Continue to monitor. (6) GERD (gastroesophageal reflux disease) Current Visit: Yes Status: Chronic Code(s): K21.9 - GASTRO-ESOPHAGEAL REFLUX DISEASE WITHOUT ESOPHAGITIS SNOMED Code(s): 711359273 Comment: Continue omeprazole. (7) DVT prophylaxis Current Visit: Yes Status: Acute Code(s): LMI4705 - SNOMED Code(s): 559208920 Comment: SCDs only secondary to marked thrombocytopenia. (8) DNR (do not resuscitate) Current Visit: Yes Status: Acute Status and Disposition: likely d/c home to [facility] this afternoon
[2016-10-03] MEDS: RiFAXimin* 550 MG TAB PO SCH (09:13)
[2016-10-03] MEDS: Multivitamins/Minerals TAB PO SCH (09:13)
[2016-10-03] MEDS: Cefepime(*) 1 GM in NS 0.9% 50 ML* 50 ML IVPB SCH (09:13)
[2016-10-03] MEDS: Lactulose* 15 ML UDC PO SCH (09:14)
[2016-10-03] MEDS: Nystatin CREAM* 15 GM TUBE TOPICAL SCH (09:14)
[2016-10-03] MEDS: Omeprazole CAP* 20 MG PO SCH (09:14)
[2016-10-03] MEDS: METHYLCELLULOSE 500 MG PO SCH (09:15)
[2016-10-03] MEDS: Potassium Chlor TAB* 20 MEQ TAB.ER PO SCH (09:16)
--- NOTE | 2016-10-03 12:42 | DS ---
DATE OF ADMISSION: 09/29/2016. DATE OF DISCHARGE: 10/03/2016. PRIMARY CARE PROVIDER: Provider at [facility]. PRINCIPAL DIAGNOSIS: Cellulitis surrounding left hip wound. SECONDARY DIAGNOSES: 1. 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 2. Severe protein calorie malnutrition. 3. History of hepatic encephalopathy - currently compensated. 4. Chronic anemia secondary to cirrhosis - slightly worsened - status post one unit PRBC transfusion. 5. GERD. DISCHARGE MEDICATIONS: 1. Potassium Chloride 20 mEq p.o. daily. 2. Omeprazole 20 mg p.o. b.i.d. 3. Dale 3 fatty acids one cap p.o. daily. 4. Multivitamin one cap p.o. daily. 5. Lactulose 45 ml p.o. t.i.d. 6. Bactrim DS one tab p.o. daily times 30 days (new). 7. Spironolactone 100 mg p.o. daily, start 10/04/2016. 8. Xifaxan 550 mg p.o. b.i.d. 9. Percocet 5/325 one to two tabs p.o. q.4 hours prn pain. 10. Citrucel 500 mg p.o. b.i.d. 11. Guaifenesin 10 ml p.o. q.4 hours prn cough. 12. Lasix 60 mg p.o. daily at 9:00 a.m., 20 mg p.o. daily at 1300. 13. Benadryl 25 mg p.o. q.6 hours prn itching. HOSPITAL COURSE: Ms. Ford is a 75-year-old female with a history of cirrhosis secondary to nonalcoholic steatohepatitis, marked anasarca of the lower extremities, and a hip fracture in June 2016 with poor wound healing who presents to the emergency room from the Wound Clinic with concerns for cellulitis around the hip wound. The patient was admitted for treatment of cellulitis. She was found to have a mildly elevated white blood cell count of 12.8. Despite being started on IV Doxycycline, the patient's white blood cell count did not improve dramatically. On 10/01/16, the patient was changed to Cefepime and with this her white blood cell count normalized. The erythema surrounding the wound also improved by 10/03/2016. The patient denies any pain associated with this. The wound itself appears to be healthy. Of note, the patient was supposed to be taking Doxycycline orally as an outpatient; however, this was not started after her appointment with Dr. Lmeus due to misplacing the recommendation note from his office at the senior care. At this point, the patient is felt to be stable for discharge back to [facility] to continue to work on rehabbing. In terms of the cellulitis, however, the patient should be on Bactrim DS one tab p.o. daily times the next 30 days. She needs a CBC, CMP, and CRP obtained on 10/09/2016. The patient additionally will need to follow-up with Dr. Lemus in the next one to two weeks. In terms of the patient's chronic medical conditions, she has remained relatively compensated. Her mental status has been quite good. She has been having a tremendous amount of diarrhea above three to four stools per days; therefore, I have decreased her Lactulose to t.i.d. instead of q.i.d. The patient's mental status will need to be monitored with this change. Additionally, the patient's edema has lessened during the course of this hospitalization. I have held her diuretics for the last two days and I question that she is intravascularly volume deplete, but total body fluid overloaded. I suspect the intravascular volume depletion has led to the mild tachycardia seen on her vital signs. Again, this is why I held the Lasix and the Spironolactone and these should be resumed tomorrow, 10/04/2016. FOLLOW-UP CONCERNS: The patient is being discharged to [facility] today, . ACTIVITY LEVEL: As tolerated. DIET: Regular as tolerated. CONDITION ON DISCHARGE: Stable. Thirty-five minutes were spent discharging this patient. CC: [facility] * [id number]/[facility] #: [id number] [address] HOSPITALPatricia
== END 2016-10-03 14:20 | DRG 862 ==
LOC: MED 16:30
PROVIDERS: ADMIT Internal Medicine; ATTEND Hospitalist
PROC: 30233N1 Transfusion of Nonautologous Red Blood Cells into Peripheral Vein, Percutaneous Approach (ICD-10-PCS; principal; 2016-09-30)
DX: T81.4XXA Infection following a procedure, initial encounter (principal); E43 Unspecified severe protein-calorie malnutrition; D69.6 Thrombocytopenia, unspecified; D53.9 Nutritional anemia, unspecified; K74.60 Unspecified cirrhosis of liver; N18.3 Chronic kidney disease, stage 3 (moderate); E87.1 Hypo-osmolality and hyponatremia; B99.9 Unspecified infectious disease; K21.9 Gastro-esophageal reflux disease without esophagitis; G40.909 Epilepsy, unspecified, not intractable, without status epilepticus; Z66 Do not resuscitate; Z79.899 Other long term (current) drug therapy; Z68.34 Body mass index [BMI] 34.0-34.9, adult; Z87.891 Personal history of nicotine dependence
CPT/HCPCS: 36415; 80048; 80053; 82140; 82306; 82607; 84134; 85025; 85027; 86850; 86900; 86901; 86922; 87070; 87205; 93005; A9270-GY; J0692; P9040

== ENCOUNTER 2016-10-15 16:27 | Inpatient (IN) | payer MEDICARE, MEDICAID ==
[2016-10-15] MEDS ORDERED: Naloxone Nasal Spray* 4 MG/0.1 ML NASAL.SPR NASAL ONE (17:20)
[2016-10-15 19:22] LABS: Hematocrit 22 % (35-47); Hemoglobin 7.1 g/dl (12.0-16.0); Mean Corpuscular HGB Conc 33 g/dl (31-36); Mean Corpuscular Hemoglobin 31 pg (27-31); Mean Corpuscular Volume 94 fL (80-97); Red Blood Count 2.29 10^6/ul (4.0-5.4); White Blood Count 5.4 10^3/ul (3.5-10.8)
[2016-10-15 19:24] LABS: Add Diff/Slide Review? Slide Review Added; Comments Flag Yes; Red Cell Distribution Width 26 % (10.5-15)
[2016-10-15 19:40] LABS: Albumin 1.5 g/dL (3.2-5.2); BUN/Creatinine Ratio 16.1 (8-20); Calcium 8.1 mg/dL (8.6-10.3); EGFR Non-African American 34.2 (>60); Globulin 3.4 g/dL (2-4); Total Bilirubin 2.9 mg/dL (0.2-1.0); Total Protein 4.9 g/dL (6.4-8.9)
[2016-10-15 19:43] LABS: Burr Cells 2+; Hypochromasia 1+; Polychromasia 1+; Target Cells 2+
[2016-10-15 19:44] LABS: Potassium 4.2 mmol/L (3.5-5.0)
[2016-10-15 19:45] LABS: Macrocytosis 1+
[2016-10-15 19:46] LABS: Mean Platelet Volume 9 um3 (7.4-10.4)
--- NOTE | 2016-10-15 19:46 | RAD ---
Indication: Few months cough with worsening. Comparison: July 09, 2016 chest radiograph. Technique: Sitting AP and lateral chest views. Report: Elevated lung volumes with increased AP thoracic diameter. Mild prominence of interstitial markings. No alveolar consolidation, focal pulmonary lesion, pleural effusion, pneumothorax. The heart, pulmonary vasculature, and mediastinal contours are unremarkable. IMPRESSION: Stigmata of chronic obstructive pulmonary disease. No acute cardiopulmonary process evident.
--- NOTE | 2016-10-15 21:45 | ED ---
Bree[employer] Painting Adam, scribed for Zack Cerrato MD on 10/15/16 at 1849 . Complex/Multi-Sys Presentation - HPI Summary HPI Summary: Pt is a 75 year old female who was sent from Dr. Roberts's office for a blood transfusion. The pt has paperwork from Dr. Roberts indicating concerns about H/H of 6.6/20 and plan to rule out aspiration PNA. Pt denies dark stool, hematuria, and any other bleeding. She denies any pain, SOB, palpitations, and any other symptoms. The nurse's note indicates that the pt had a wet cough during triage. - History Of Current Complaint Chief Complaint: EDGeneral Time Seen by Provider: 10/15/16 18:40 Hx Obtained From: Patient, Medical Records Onset/Duration: Gradual Onset, Lasting Hours, Still Present Timing: Constant Severity Currently: Mild Severity Initially: Mild Character: Unable To Describe - Patient is asymptomatic. She was sent in for concerns about lab results. Aggravating Factor(s): Unknown Alleviating Factor(s): Nothing - Allergies/Home Medications Allergies/Adverse Reactions: Allergies Allergy/AdvReac Type Severity Reaction Status Date / Time No Known Allergies Allergy Verified 08/11/16 16:47 PMH/Surg Hx/FS Hx/Imm Hx Endocrine/Hematology History: Reports: Hx Anemia Denies: Hx Diabetes, Hx Thyroid Disease Cardiovascular History: Reports: Hx Syncope Denies: Hx Congestive Heart Failure, Hx Hypertension Respiratory History: Denies: Hx Asthma, Hx Chronic Obstructive Pulmonary Disease (COPD) GI History: Reports: Hx Cirrhosis, Hx Gastroesophageal Reflux Disease, Hx Gastrointestinal Bleed, Other GI Disorders - Hepatic encephalopathy. Denies: Hx Ulcer History: Reports: Hx Chronic Renal Failure, Hx Renal Disease - and liver disease Musculoskeletal History: Reports: Hx Arthritis Sensory History: Reports: Hx Cataracts - removed, Hx Contacts or Glasses, Hx Vision Problem Opthamlomology History: Reports: Hx Cataracts - removed, Hx Contacts or Glasses , Hx Vision Problem Neurological History: Reports: Hx Headaches, Hx Seizures Psychiatric History: Reports: Hx Depression - [id number] said pt. was prescribed medicine for depression but did not - Surgical History Surgery Procedure, Year, and Place: cataracts, left hip Hx Anesthesia Reactions: No - Immunization History Date of Tetanus Vaccine: 2009 Date of Influenza Vaccine: 2011 Infectious Disease History: No Infectious Disease History: Denies: Hx Hepatitis, Hx Human Immunodeficiency Virus (HIV), Hx of Known/ Suspected MRSA, History Other Infectious Disease, Traveled Outside the [place] in Last 30 Days - Family History Known Family History: Negative: Cardiac Disease, Hypertension, Diabetes Family History: Mother: " of old age". Father: Pulmonary embolism. Sister : Cirrhosis - Social History Occupation: Retired Lives: At [facility] Alcohol Use: None Hx Substance Use: No Substance Use Type: Reports: None Hx Tobacco Use: Yes Smoking Status (MU): Former Smoker Type: Cigarettes Length of Time of Smoking/Using Tobacco: 15 years ago Have You Smoked in the Last Year: No Review of Systems Negative: Fever Negative: Palpitations Positive: Cough. Negative: Shortness Of Breath Negative: Abdominal Pain Negative: hematuria Negative: Arthralgia, Myalgia All Other Systems Reviewed And Are Negative: Yes Physical Exam - Summary Physical Exam Summary: VITAL SIGNS: Reviewed. GENERAL: Patient is an obese female who is lying comfortable in the stretcher. Patient is not in any acute respiratory distress. HEAD AND FACE: No signs of trauma. No ecchymosis, hematomas or skull depressions. No sinus tenderness. EYES: PERRLA, EOMI x 2, No injected conjunctiva, no nystagmus. EARS: Hearing grossly intact. Ear canals and tympanic membranes are within normal limits. MOUTH: Oropharynx within normal limits. NECK: Supple, trachea is midline, no adenopathy, no JVD, no carotid bruit, no c- spine tenderness, neck with full ROM. CHEST: Symmetric, no tenderness at palpation LUNGS: Clear to auscultation bilaterally. No wheezing or crackles. CVS: Regular rate and rhythm, S1 and S2 present, no murmurs or gallops appreciated. ABDOMEN: Soft, non-tender. No signs of distention. No rebound no guarding, and no masses palpated. Bowel sounds are normal. Rectal exam shows an normal sphincter tone w/o melena. EXTREMITIES: FROM in all major joints, no edema, no cyanosis or clubbing. NEURO: Alert and oriented x 3. No acute neurological deficits. Speech is normal and follows commands. SKIN: Dry and warm Triage Information Reviewed: Yes Vital Signs On Initial Exam: Initial Vitals Temp Pulse Resp BP Pulse Ox 97.6 F 92 20 117/37 100 10/15/16 16:30 10/15/16 16:30 10/15/16 16:30 10/15/16 16:30 10/15/16 16:30 Vital Signs Reviewed: Yes Diagnostics - Vital Signs Vital Signs Temp Pulse Resp BP Pulse Ox 10/15/16 17:26 97.0 F 93 20 130/38 99 10/15/16 16:30 97.6 F 92 20 117/37 100 - Laboratory Lab Results: Lab Results 10/15/16 10/15/16 10/15/16 Range/Units 19:16 19:16 19:16 WBC (3.5-10.8) 10^3/ul RBC (4.0-5.4) 10^6/ul Hgb (12.0-16.0) g/dl Hct (35-47) % MCV (80-97) fL MCH (27-31) pg MCHC (31-36) g/dl RDW (10.5-15) % Plt Count (150-450) 10^3/ul MPV (7.4-10.4) um3 Neut % (Auto) (38-83) % Lymph % (Auto) (25-47) % [place] % (Auto) (1-9) % Eos % (Auto) (0-6) % Baso % (Auto) (0-2) % Absolute Neuts (auto) (1.5-7.7) 10^3/ul Absolute Lymphs (auto) (1.0-4.8) 10^3/ul Absolute Monos (auto) (0-0.8) 10^3/ul Absolute Eos (auto) (0-0.6) 10^3/ul Absolute Basos (auto) (0-0.2) 10^3/ul Absolute Nucleated RBC 10^3/ul Nucleated RBC % Normal RBC Morphology Polychromasia Hypochromasia Macrocytosis Target Cells [place] Cells INR (Anticoag Therapy) 1.94 H (0.89-1.11) APTT 44.0 H (26.0-36.3) seconds Sodium 126 L (133-145) mmol/L Potassium 4.2 (3.5-5.0) mmol/L Chloride 105 (101-111) mmol/L Carbon Dioxide 19 L (22-32) mmol/L Anion Gap 2 (2-11) mmol/L BUN 24 (6-24) mg/dL Creatinine 1.49 H (0.51-0.95) mg/dL Est GFR ( Amer) 44.0 (>60) Est GFR (Non-Af Amer) 34.2 (>60) BUN/Creatinine Ratio 16.1 (8-20) Glucose 102 H (70-100) mg/dL Calcium 8.1 L (8.6-10.3) mg/dL Total Bilirubin 2.90 H (0.2-1.0) mg/dL AST 66 H (13-39) U/L ALT 36 (7-52) U/L Alkaline Phosphatase 145 H (34-104) U/L Total Protein 4.9 L (6.4-8.9) g/dL Albumin 1.5 L (3.2-5.2) g/dL Globulin 3.4 (2-4) g/dL Albumin/Globulin Ratio 0.4 L (1-3) Blood Type A Positive Antibody Screen Negative Crossmatch See Detail 10/15/16 Range/Units 19:16 WBC 5.4 (3.5-10.8) 10^3/ul RBC 2.29 L (4.0-5.4) 10^6/ul Hgb 7.1 L (12.0-16.0) g/dl Hct 22 L (35-47) % MCV 94 (80-97) fL MCH 31 (27-31) pg MCHC 33 (31-36) g/dl RDW 26 H (10.5-15) % Plt Count 71 L (150-450) 10^3/ul MPV 9 (7.4-10.4) um3 Neut % (Auto) 60.5 (38-83) % Lymph % (Auto) 12.9 L (25-47) % [place] % (Auto) 24.7 H (1-9) % Eos % (Auto) 1.3 (0-6) % Baso % (Auto) 0.6 (0-2) % Absolute Neuts (auto) 3.2 (1.5-7.7) 10^3/ul Absolute Lymphs (auto) 0.7 L (1.0-4.8) 10^3/ul Absolute Monos (auto) 1.3 H (0-0.8) 10^3/ul Absolute Eos (auto) 0.1 (0-0.6) 10^3/ul Absolute Basos (auto) 0 (0-0.2) 10^3/ul Absolute Nucleated RBC 0.07 10^3/ul Nucleated RBC % 1.3 Normal RBC Morphology Not Reportable Polychromasia 1+ Hypochromasia 1+ Macrocytosis 1+ Target Cells 2+ [place] Cells 2+ INR (Anticoag Therapy) (0.89-1.11) APTT (26.0-36.3) seconds Sodium (133-145) mmol/L Potassium (3.5-5.0) mmol/L Chloride (101-111) mmol/L Carbon Dioxide (22-32) mmol/L Anion Gap (2-11) mmol/L BUN (6-24) mg/dL Creatinine (0.51-0.95) mg/dL Est GFR ( Amer) (>60) Est GFR (Non-Af Amer) (>60) BUN/Creatinine Ratio (8-20) Glucose (70-100) mg/dL Calcium (8.6-10.3) mg/dL Total Bilirubin (0.2-1.0) mg/dL AST (13-39) U/L ALT (7-52) U/L Alkaline Phosphatase (34-104) U/L Total Protein (6.4-8.9) g/dL Albumin (3.2-5.2) g/dL Globulin (2-4) g/dL Albumin/Globulin Ratio (1-3) Blood Type Antibody Screen Crossmatch Result Diagrams: 10/15/16 19:16 10/15/16 19:16 Lab Statement: Any lab studies that have been ordered have been reviewed, and results considered in the medical decision making process. - Radiology CXR Radiology Interpretation Completed By: Radiologist - IMPRESSION: Stigmata of chronic obstructive pulmonary disease. No acute cardiopulmonary process evident. - EKG 16:35 Cardiac Rate: NL - 91 BPM - Additional Comments Diagnostic Additional Comments: Stool Occult Blood - Positive Complex Multi-Symp Course/Dx Assessment/Plan: Pt is a 75 year old female who was sent from Dr. Roberts's office for a blood transfusion. The pt has paperwork from Dr. Roberts indicating concerns about H/H of 6.6/20 and plan to rule out aspiration PNA. Pt denies dark stool, hematuria, and any other bleeding. She denies any pain, SOB, palpitations, and any other symptoms. The nurse's note indicates that the pt had a wet cough during triage. Blood work shows a Hb 7.1, Hct 22, platelets 71. Patient with symptomatic anemia therefore I ordered 2 units of PRBC. Guaiac is also positive therefore she may be dealing with a GI bleed. Na 126, creatinine 1.49 , calcium 8.1. At this point I discuss my physical exam, findings and test results with Dr. Mir from the hospitalist services and she agrees to admit patient to his services. Patient is hemodynamically stable alert and oriented x 3. - Diagnoses Differential Diagnoses/HQI/PQRI: Other - Flu, URI, Weakness, Anemia, ARF Provider Diagnoses: Symptomatic anemia, GI bleed Discharge - Discharge Plan Condition: Stable Disposition: ADMITTED TO [facility] The documentation as recorded by the Breezy wayne Adam accurately reflects the service I personally performed and the decisions made by me, Zack Cerrato MD.
[2016-10-15] MEDS ORDERED: guaiFENesin LIQ* 100 MG/5 ML UDC PO PRN (22:04)
[2016-10-16 00:39] LABS: Hematocrit 20 % (35-47); Hemoglobin 6.7 g/dl (12.0-16.0)
[2016-10-16 00:40] LABS: Comments Flag Yes
--- NOTE | 2016-10-16 03:31 | HP ---
HISTORY AND PHYSICAL: DATE OF ADMISSION: 10/15/16 PRIMARY CARE PROVIDER: Dr. Miriam So. PHYSICIAN AT [facility]: Dr. Garry Rogers. WOUND CLINIC PROVIDER: Shy Cox NP INFECTIOUS DISEASE SPECIALIST: Dr. Lemus. ATTENDING PHYSICIAN: Dr. Brian Mir *(dictated by Shara Allen NP). CHIEF COMPLAINT: Anemia. HISTORY OF PRESENT ILLNESS: Ms. Ford is a 75-year-old female with past medical history significant for cirrhosis secondary to nonalcoholic fatty liver disease, hepatic encephalopathy, GERD, seizure disorder, chronic anemia, status post left hip closed reduction and internal fixation on 07/09/16, followed by wound re- exploration on 07/16/16 complicated by possible infection, and lower GI bleed, who presented to the emergency room today after being seen by Dr. Roberts. Paper work from Dr. Roberts indicates concern for an H and H of 6.6 and 20 and to rule out aspiration pneumonia. The patient denies any dark stools, hematuria, or any other signs of bleeding. She denies any fever, chills, shortness of breath, chest pain, or abdominal pain. The patient does report feeling cold all the time and reports having a cough for months. While in the emergency room, the patient had labs that were significant for hemoglobin of 7.1 and hematocrit of 22. This appears to be around the patient' s baseline, she also has a platelet count of 71, which appears to be around her baseline of 60 to 70. This patient is slightly hyponatremic with a sodium of 126. The patient's creatinine is slightly elevated above her baseline at 1.49. The patient also has some elevated liver function tests with AST of 56, total bilirubin of 2.90, alk phos of 145. The patient had a stool guaiac in the emergency room that was positive. The patient also had a chest x-ray showing stigmata of COPD. No acute cardiopulmonary disease. The patient had an EKG showing a sinus rhythm with a rate of 91. There is some T-wave flattening in lead V1. This EKG is similar to previous EKG from 10/01/16, but at that time, the patient was seen to be in sinus tachycardia. Based on the patient's presentation and concern for possible GI bleed, the hospitalists were asked to evaluate the patient for admission. PAST MEDICAL HISTORY: 1. Cirrhosis secondary to non-alcoholic fatty liver. 2. History of hepatic encephalopathy. 3. GERD. 4. Seizure disorder. 5. Chronic thrombocytopenia. 6. Chronic anemia. 7. Status post chronic kidney disease, stage 3. 8. Possible episodes of GI bleed in July 2016. PAST SURGICAL HISTORY: 1. Status post cataract extraction. 2. Status post left hip closed reduction and internal fixation on 07/09/16 with subsequent complications. HOME MEDICATIONS: Include: 1. Benadryl 25 mg oral every 6 hours as needed for itching. 2. Guaifenesin 10 mL oral every 4 hours as needed for cough. 3. Percocet 5/325 one tablet oral every 4 hours as needed for pain level 1 to 5. 4. Percocet 5/325 two tablets oral every 4 hours as needed for pain level 6 to 10. 5. Citrucel 1 tablet twice daily. 6. Ferrous sulfate 325 mg oral twice daily. 7. Omeprazole 40 mg oral twice daily. 8. Vitamin C 500 mg oral twice daily, takes with iron tab. 9. Xifaxan 550 mg oral twice daily. 10. Lactulose 45 mL oral four times daily. 11. Multivitamin 1 tablet oral daily. 12. [place]-3 1200 mg oral daily. 13. Potassium chloride 20 mEq oral daily. 14. Spironolactone 100 mg oral daily. 15. Bactrim DS 800/160 mg 1 tablet oral daily for 30 days, started October 04. 16. Furosemide 20 mg oral daily at 1300. 17. Furosemide 60 mg oral daily at 9 a.m. 18. Medihoney alginate apply topical every 72 hours to left flank wound. 19. Allevyn topical to left buttock daily. ALLERGIES: No known drug allergies. FAMILY HISTORY: The patient's mother is alive at 101 with no significant medical history. The patient's father passed from a pulmonary embolism. The patient has a sister who also has a history of cirrhosis. The patient denies any family history of coronary artery disease, diabetes mellitus, or cancer. SOCIAL HISTORY: The patient is a former smoker. She quit smoking approximately 20 years ago. Prior to that, she smoked for approximately 37 years. The patient denies alcohol or recreational drug use. 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 She is and has two children. Her sister, Hallie Hudson, phone number [phone] will be her surrogate decision maker in the event she is unable to make decisions for herself. REVIEW OF SYSTEMS: I performed a 14-point review of systems. All the pertinent positives and negatives are mentioned in the history of present illness. The remaining review of systems is negative. PHYSICAL EXAMINATION GENERAL APPEARANCE: The patient is alert, pleasant, and appears to be in no acute distress. VITAL SIGNS: Temperature 97.0, heart rate 89, respiratory rate 20, O2 sat 98% on room air, blood pressure 117/38. HEENT: Normocephalic, atraumatic. Pupils are equal and reactive to light. Extraocular eye movements are intact. RESPIRATORY: There is no accessory muscle use and the lungs have some wheezing bilateral. CARDIOVASCULAR: Regular rate and rhythm. S1 and S2 are present. There are no murmurs, rubs, or gallops heard. ABDOMEN: Soft, large, nontender. RECTAL: Rectal exam was deferred as it was performed by the emergency room provider. EXTREMITIES: There was significant edema to bilateral lower extremities. DP and PT pulses are present and symmetric. MUSCULOSKELETAL: There is no clubbing or cyanosis noted. The patient exhibits good strength in all extremities. NEUROLOGIC: The patient is alert and oriented x3. Cranial nerves II through XII are grossly intact. PSYCHOLOGIC: The patient is calm and cooperative. SKIN: The patient has generalized anasarca, most notably to her legs, arms, and hips. DIAGNOSTIC STUDIES/LAB DATA: Sodium 126, potassium 4.2, chloride 105, CO2 19, BUN 24, creatinine 1.49, glucose 102. White blood cell count 5.4, hemoglobin 7.1, hematocrit 22, and platelet count 71. INR 1.94. Stool for occult blood positive. EKG: Sinus rhythm with a rate of 91. There is a T-wave flattening in V1. This EKG is similar to previous EKG from 10/01/16, but at that time, the patient was in a sinus tachycardia. Chest x-ray from today. Radiologist's impression: Stigmata of chronic obstructive pulmonary disease. No acute cardiopulmonary process evident. IMPRESSION: Ms. Ford is a 75-year-old female with past medical history significant for cirrhosis, chronic anemia, chronic thrombocytopenia, hepatic encephalopathy, gastroesophageal reflux disease, seizure disorder, status post left hip fracture with closed reduction and gamma nail fixation with complicated nonhealing wound and infection and possible gastrointestinal bleed, who presents for concern for anemia and possible gastrointestinal bleed. She will admitted as an observation for possible gastrointestinal bleed and anemia. ASSESSMENT AND PLAN: 1. Gastrointestinal bleed. The patient has a positive stool for occult blood. The patient's H and H appear to be stable at this time. She had a positive stool for occult blood. The patient denies noticing any signs of bleeding. We will trend the patient's H and H. At this time, she actually appears to be higher than she has been in previous visits. We will also check orthostatic vital signs. At this time, we will hold off on any IV fluids as the patient has generalized anasarca. 2. Anemia. The patient is chronically anemic with a hemoglobin around 7.2. She denies any signs of bleeding. Her vital signs are stable. We are going to trend the patient's H and H and hold on a blood transfusion at this time. 3. Chronic thrombocytopenia. The patient at baseline appears to be between 60 and 70. She has no active signs of bleeding at this time. 4. Chronic left hip wound. The patient will be continued on her home Bactrim. The patient will continue to have every 3 day dressing changes to her left flank wound with Medihoney. 5. Liver cirrhosis with anasarca. We will continue diuresis. The patient will have daily weights and strict I's and O's. The patient will also have a fluid restriction. It appears the patient's previous weight was around 190 at her time of last discharge. 6. History of hepatic encephalopathy. The patient's mental status appears to be intact at this time. We will continue her lactulose and rifaximin. 7. Chronic kidney disease, stage 3. The patient's creatinine is 1.49 today. This appears to be slightly higher than the patient's baseline, which appears to be between 1 and 1.15. At this time, we are going to avoid fluids as the patient continues to have significant anasarca and we will consider giving her blood if her hemoglobin drops below 7. 8. Hyponatremia secondary to severe edema. We will continue to monitor the patient's hyponatremia. At this time, we will hold on any IV fluids. Her mental status appears to be intact at this time. 9. Fluids, electrolytes, and nutrition. The patient will be on a clear-liquid diet with nectar thick and 1500 mL fluid restriction. 10. Code status. Do not resuscitate. 11. DVT prophylaxis. The patient is at high risk, but in the setting of a possible gastrointestinal bleed, pharmacological DVT prophylaxis is contraindicated. At this point, we will use SCDs. 12. Disposition. Observation for possible gastrointestinal bleed. TIME SPENT: Time for this admission was 60 minutes and 35 minutes was spent with the patient discussing medications, past medical history, and the events leading up to her arrival today and performing a physical examination. The case has been reviewed with the attending, Dr. Mir, who agrees with the plan of care. Reviewed by GREGORIO ODONNELL 10/16/16 1512 CC: Dr. Rogers* [id number]/CPS #: [id number] MTDD
[2016-10-16 06:36] LABS: Comments Flag Yes; Hematocrit 20 % (35-47); Mean Corpuscular HGB Conc 32 g/dl (31-36); Mean Corpuscular Hemoglobin 31 pg (27-31); Mean Corpuscular Volume 95 fL (80-97); Mean Platelet Volume 10 um3 (7.4-10.4); Red Blood Count 2.13 10^6/ul (4.0-5.4); White Blood Count 5.3 10^3/ul (3.5-10.8)
[2016-10-16 06:37] LABS: Hemoglobin 6.6 g/dl (12.0-16.0); Red Cell Distribution Width 27 % (10.5-15)
[2016-10-16 06:54] LABS: ALT 33 U/L (7-52); AST 55 U/L (13-39); Alkaline Phosphatase 124 U/L (34-104); Anion Gap 5 mmol/L (2-11); BUN/Creatinine Ratio 17.5 (8-20); Blood Urea Nitrogen 24 mg/dL (6-24); CO2 Carbon Dioxide 17 mmol/L (22-32); Calcium 7.8 mg/dL (8.6-10.3); Chloride 106 mmol/L (101-111); EGFR African American 48.5 (>60); EGFR Non-African American 37.7 (>60); Glucose 74 mg/dL (70-100); Potassium 4.1 mmol/L (3.5-5.0); Sodium 128 mmol/L (133-145); Total Protein 4.4 g/dL (6.4-8.9)
[2016-10-16 06:56] LABS: Albumin < 1.5 g/dL (3.2-5.2); Globulin 2.9 g/dL (2-4)
[2016-10-16] MEDS: Potassium Chlor TAB* 20 MEQ TAB.ER PO SCH ×2 (08:51→09:26)
[2016-10-16] MEDS: Spironolactone TAB* 25 MG PO SCH (08:51)
[2016-10-16] MEDS: Furosemide TAB* 20 MG PO SCH ×2 (08:51→13:21)
[2016-10-16] MEDS: LACTULOSE* 30 ML UDC PO SCH ×4 (08:51→22:56)
[2016-10-16] MEDS: Omeprazole CAP* 20 MG PO SCH ×2 (08:51→22:55)
[2016-10-16] MEDS: Ascorbic Acid TAB* 500 MG PO SCH ×2 (08:52→22:56)
[2016-10-16] MEDS: Sulfamethox/Trimethoprim DS 800/160* TAB PO SCH (08:52)
[2016-10-16] MEDS: Ferrous Sulfate TAB* 325 MG PO SCH ×2 (08:52→22:55)
[2016-10-16] MEDS: RiFAXimin* 550 MG TAB PO SCH ×2 (08:52→22:55)
[2016-10-16] MEDS ORDERED: Omeprazole CAP* 20 MG PO SCH (09:00)
[2016-10-16] MEDS: Potassium Chlor TAB* 10 MEQ TAB.ER PO SCH (09:30)
[2016-10-16 14:08] LABS: Hematocrit 23 % (35-47); Hemoglobin 7.5 g/dl (12.0-16.0)
[2016-10-16 14:14] LABS: Comments Flag Yes
[2016-10-16] MEDS ORDERED: oxyCODONE/Acetamin 5/325 MG* TAB PO PRN ×2 (17:23)
--- NOTE | 2016-10-16 17:28 | PN ---
Subjective Date of Service: 10/16/16 Interval History: Pt is feeling ok. She continues to have a moist cough that is not productive of sputum. She denies any pain at this time. No SOB. She actually has no complaints at this time. Objective Active Medications: Ascorbic Acid (Vitamin C Tab*) 500 mg PO BID [facility] Last Admin: 10/16/16 08:52 Dose: 500 mg Ferrous Sulfate (Ferrous Sulfate Tab*) 325 mg PO BID [facility] Last Admin: 10/16/16 08:52 Dose: 325 mg Furosemide (Lasix Tab*) 20 mg PO DAILY@1300 [facility] Last Admin: 10/16/16 13:21 Dose: 20 mg Furosemide (Lasix Tab*) 60 mg PO DAILY@0900 [facility] Last Admin: 10/16/16 08:51 Dose: 60 mg Guaifenesin (Robitussin*) 10 ml PO Q4H PRN PRN Reason: COUGH Lactulose (Lactulose*) 30 ml PO TID [facility] Omeprazole (Prilosec Cap*) 40 mg PO BID [facility] Last Admin: 10/16/16 08:51 Dose: 40 mg Oxycodone/Acetaminophen (Percocet 5/325 Tab*) 1 tab PO Q4H PRN PRN Reason: Pain 1-5 Oxycodone/Acetaminophen (Percocet 5/325 Tab*) 2 tab PO Q4H PRN PRN Reason: Pain 6-10 Potassium Chloride (Klor Con Er Tab*) 20 meq PO DAILY [facility] Last Admin: 10/16/16 09:30 Dose: 20 meq Rifaximin (Xifaxan*) 550 mg PO BID [facility] Last Admin: 10/16/16 08:52 Dose: 550 mg Spironolactone (Aldactone Tab*) 100 mg PO DAILY [facility] Last Admin: 10/16/16 08:51 Dose: 100 mg Trimethoprim/Sulfamethoxazole (Bactrim Ds 800/160 Tab*) 1 tab PO DAILY [facility] Stop: 11/03/16 08:59 Last Admin: 10/16/16 08:52 Dose: 1 tab Vital Signs 10/15/16 10/15/16 10/15/16 21:00 22:25 23:11 Temperature 97.5 F Pulse Rate 91 86 Respiratory 20 20 Rate Blood Pressure 131/47 (mmHg) O2 Sat by Pulse 97 100 Oximetry 10/15/16 10/16/16 10/16/16 23:20 05:05 08:25 Temperature 97.4 F 97.6 F Pulse Rate 88 90 Respiratory 16 16 18 Rate Blood Pressure 110/51 126/52 (mmHg) O2 Sat by Pulse 100 99 Oximetry 10/16/16 10/16/16 10/16/16 08:38 11:41 12:20 Temperature 97.5 F 97.9 F 97.8 F Pulse Rate 91 90 91 Respiratory 17 15 20 Rate Blood Pressure 125/52 122/46 126/43 (mmHg) O2 Sat by Pulse 99 99 98 Oximetry 10/16/16 14:40 Temperature 98.3 F Pulse Rate 91 Respiratory 16 Rate Blood Pressure 140/42 (mmHg) O2 Sat by Pulse 100 Oximetry Oxygen Devices in Use Now: None Appearance: Elderly ill appearing female lying flat in bed, NAD Eyes: - - mildly icteric sclera Ears/Nose/Mouth/Throat: Mucous Membranes Moist Respiratory: Symmetrical Chest Expansion and Respiratory Effort, Clear to Auscultation - anteriorly Cardiovascular: NL Sounds; No Murmurs; No JVD, RRR, - - marked diffuse anasarca Abdominal: - - BS+ soft, NT, ND Extremities: No Clubbing, Cyanosis Skin: No Nodules or Sclerosis, - - Ulceration L hip not inspected today Neurological: Alert and Oriented x 3 Result Diagrams: 10/16/16 13:57 10/16/16 05:44 Additional Lab and Data: Lab Results 10/15/16 10/15/16 10/15/16 Range/Units 19:16 19:16 19:16 WBC (3.5-10.8) 10^3/ul RBC (4.0-5.4) 10^6/ul Hgb (12.0-16.0) g/dl Hct (35-47) % MCV (80-97) fL MCH (27-31) pg MCHC (31-36) g/dl RDW (10.5-15) % Plt Count (150-450) 10^3/ul MPV (7.4-10.4) um3 Neut % (Auto) (38-83) % Lymph % (Auto) (25-47) % Taylor % (Auto) (1-9) % Eos % (Auto) (0-6) % Baso % (Auto) (0-2) % Absolute Neuts (auto) (1.5-7.7) 10^3/ul Absolute Lymphs (auto) (1.0-4.8) 10^3/ul Absolute Monos (auto) (0-0.8) 10^3/ul Absolute Eos (auto) (0-0.6) 10^3/ul Absolute Basos (auto) (0-0.2) 10^3/ul Absolute Nucleated RBC 10^3/ul Nucleated RBC % Normal RBC Morphology Polychromasia Hypochromasia Macrocytosis Target Cells [place] Cells INR (Anticoag Therapy) 1.94 H (0.89-1.11) APTT 44.0 H (26.0-36.3) seconds Sodium 126 L (133-145) mmol/L Potassium 4.2 (3.5-5.0) mmol/L Chloride 105 (101-111) mmol/L Carbon Dioxide 19 L (22-32) mmol/L Anion Gap 2 (2-11) mmol/L BUN 24 (6-24) mg/dL Creatinine 1.49 H (0.51-0.95) mg/dL Est GFR ( Amer) 44.0 (>60) Est GFR (Non-Af Amer) 34.2 (>60) BUN/Creatinine Ratio 16.1 (8-20) Glucose 102 H (70-100) mg/dL Calcium 8.1 L (8.6-10.3) mg/dL Total Bilirubin 2.90 H (0.2-1.0) mg/dL AST 66 H (13-39) U/L ALT 36 (7-52) U/L Alkaline Phosphatase 145 H (34-104) U/L Total Protein 4.9 L (6.4-8.9) g/dL Albumin 1.5 L (3.2-5.2) g/dL Globulin 3.4 (2-4) g/dL Albumin/Globulin Ratio 0.4 L (1-3) Blood Type A Positive Antibody Screen Negative Crossmatch See Detail 10/15/16 Range/Units 19:16 WBC 5.4 (3.5-10.8) 10^3/ul RBC 2.29 L (4.0-5.4) 10^6/ul Hgb 7.1 L (12.0-16.0) g/dl Hct 22 L (35-47) % MCV 94 (80-97) fL MCH 31 (27-31) pg MCHC 33 (31-36) g/dl RDW 26 H (10.5-15) % Plt Count 71 L (150-450) 10^3/ul MPV 9 (7.4-10.4) um3 Neut % (Auto) 60.5 (38-83) % Lymph % (Auto) 12.9 L (25-47) % Taylor % (Auto) 24.7 H (1-9) % Eos % (Auto) 1.3 (0-6) % Baso % (Auto) 0.6 (0-2) % Absolute Neuts (auto) 3.2 (1.5-7.7) 10^3/ul Absolute Lymphs (auto) 0.7 L (1.0-4.8) 10^3/ul Absolute Monos (auto) 1.3 H (0-0.8) 10^3/ul Absolute Eos (auto) 0.1 (0-0.6) 10^3/ul Absolute Basos (auto) 0 (0-0.2) 10^3/ul Absolute Nucleated RBC 0.07 10^3/ul Nucleated RBC % 1.3 Normal RBC Morphology Not Reportable Polychromasia 1+ Hypochromasia 1+ Macrocytosis 1+ Target Cells 2+ Conway Cells 2+ INR (Anticoag Therapy) (0.89-1.11) APTT (26.0-36.3) seconds Sodium (133-145) mmol/L Potassium (3.5-5.0) mmol/L Chloride (101-111) mmol/L Carbon Dioxide (22-32) mmol/L Anion Gap (2-11) mmol/L BUN (6-24) mg/dL Creatinine (0.51-0.95) mg/dL Est GFR ( Amer) (>60) Est GFR (Non-Af Amer) (>60) BUN/Creatinine Ratio (8-20) Glucose (70-100) mg/dL Calcium (8.6-10.3) mg/dL Total Bilirubin (0.2-1.0) mg/dL AST (13-39) U/L ALT (7-52) U/L Alkaline Phosphatase (34-104) U/L Total Protein (6.4-8.9) g/dL Albumin (3.2-5.2) g/dL Globulin (2-4) g/dL Albumin/Globulin Ratio (1-3) Blood Type Antibody Screen Crossmatch Assess/Plan/Problems-Billing Ms Ford is a 75 yo F who has a h/o L hip fracture s/p repair 06/2016 with poor wound healing and possible infection, cirrhosis secondary to [place], hepatic encephalopathy, anemia and thrombocytopenia and stage III CKD who presented to the ER with concern from Dr. Roberts for anemia. - Patient Problems (1) Upper GI bleed Current Visit: Yes Status: Acute Code(s): K92.2 - GASTROINTESTINAL HEMORRHAGE, UNSPECIFIED SNOMED Code(s): 33113808 Comment: Possible upper GI bleed as stool guaiac is positive. Continue omeprazole. If she is having a GI bleed likely secondary to portal hypertension related to her cirrhosis. I do not think she would be able to tolerate an EGD nor do I think she would benefit from an EGD at this point. (2) Anemia Current Visit: Yes Status: Chronic Code(s): D64.9 - ANEMIA, UNSPECIFIED SNOMED Code(s): 725451701 Comment: Pt presented with a H/H that was essentially at baseline. Her H/H dropped today but still very close to her baseline. As her Hb was <7 I transfused 1 unit PRBC today. Her stool guaiac is positive indicating possible GI bleed. Follow up H/H tomorrow AM. 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 Continue lactulose TID and rifaximin. Hold lactulose for >4 stools per day as the patient is reportedly having very large liquid BMs. (4) CKD (chronic kidney disease), stage III Current Visit: Yes Status: Acute Code(s): N18.3 - CHRONIC KIDNEY DISEASE, STAGE 3 (MODERATE) SNOMED Code(s): 563531238 Comment: Creatinine is essentially at baseline. Continue to monitor. (5) Hepatic encephalopathy Current Visit: Yes Status: Chronic Code(s): K72.90 - HEPATIC FAILURE, UNSPECIFIED WITHOUT COMA SNOMED Code(s): 00911081 Comment: No signs of encephalopathy at this time. Continue rifaximin and lactulose. (6) Protein calorie malnutrition Current Visit: Yes Status: Acute Code(s): E46 - UNSPECIFIED PROTEIN-CALORIE MALNUTRITION SNOMED Code(s): 772165591 Comment: The patient has severe protein calorie malnutrition. (7) GERD (gastroesophageal reflux disease) Current Visit: Yes Status: Chronic Code(s): K21.9 - GASTRO-ESOPHAGEAL REFLUX DISEASE WITHOUT ESOPHAGITIS SNOMED Code(s): 319439786 Comment: Continue omeprazole. (8) DVT prophylaxis Current Visit: Yes Status: Acute Code(s): BWT8763 - SNOMED Code(s): 350037886 Comment: SCDs only secondary to marked thrombocytopenia. (9) DNR (do not resuscitate) Current Visit: Yes Status: Acute
[2016-10-17 06:16] LABS: Hematocrit 23 % (35-47); Hemoglobin 7.6 g/dl (12.0-16.0); Mean Corpuscular HGB Conc 33 g/dl (31-36); Mean Corpuscular Hemoglobin 31 pg (27-31); Mean Corpuscular Volume 93 fL (80-97); Red Blood Count 2.49 10^6/ul (4.0-5.4); Red Cell Distribution Width 24 % (10.5-15); White Blood Count 5.2 10^3/ul (3.5-10.8)
[2016-10-17 06:30] LABS: Comments Flag Yes
[2016-10-17 07:48] VITALS: BP 118/31
--- NOTE | 2016-10-17 10:06 | PN ---
Subjective Date of Service: 10/17/16 Interval History: Pt is feeling ok. She denies any pain or SOB. She wants to go back to [facility] today-she does not want to stay to wait for a palliative care consult. Objective Active Medications: Ascorbic Acid (Vitamin C Tab*) 500 mg PO BID [facility] Last Admin: 10/16/16 22:56 Dose: 500 mg Ferrous Sulfate (Ferrous Sulfate Tab*) 325 mg PO BID [facility] Last Admin: 10/16/16 22:55 Dose: 325 mg Furosemide (Lasix Tab*) 20 mg PO DAILY@1300 [facility] Last Admin: 10/16/16 13:21 Dose: 20 mg Furosemide (Lasix Tab*) 60 mg PO DAILY@0900 [facility] Last Admin: 10/16/16 08:51 Dose: 60 mg Guaifenesin (Robitussin*) 10 ml PO Q4H PRN PRN Reason: COUGH Lactulose (Lactulose*) 30 ml PO TID [facility] Last Admin: 10/16/16 22:56 Dose: Not Given Omeprazole (Prilosec Cap*) 40 mg PO BID [facility] Last Admin: 10/16/16 22:55 Dose: 40 mg Oxycodone/Acetaminophen (Percocet 5/325 Tab*) 1 tab PO Q4H PRN PRN Reason: Pain 1-5 Oxycodone/Acetaminophen (Percocet 5/325 Tab*) 2 tab PO Q4H PRN PRN Reason: Pain 6-10 Potassium Chloride (Klor Con Er Tab*) 20 meq PO DAILY [facility] Last Admin: 10/16/16 09:30 Dose: 20 meq Rifaximin (Xifaxan*) 550 mg PO BID [facility] Last Admin: 10/16/16 22:55 Dose: 550 mg Spironolactone (Aldactone Tab*) 100 mg PO DAILY [facility] Last Admin: 10/16/16 08:51 Dose: 100 mg Trimethoprim/Sulfamethoxazole (Bactrim Ds 800/160 Tab*) 1 tab PO DAILY [facility] Stop: 11/03/16 08:59 Last Admin: 10/16/16 08:52 Dose: 1 tab Vital Signs 10/16/16 10/16/16 10/17/16 19:19 20:00 00:02 Temperature 97.6 F 97.3 F Pulse Rate 95 93 Respiratory 20 19 19 Rate Blood Pressure 121/74 148/46 (mmHg) O2 Sat by Pulse 99 98 Oximetry 10/17/16 07:32 Temperature 97.5 F Pulse Rate 90 Respiratory 14 Rate Blood Pressure 118/31 (mmHg) O2 Sat by Pulse 100 Oximetry Oxygen Devices in Use Now: None Appearance: Elderly female sitting up in bed getting cleaned up, NAD Eyes: - - mildly icteric sclera Ears/Nose/Mouth/Throat: Mucous Membranes Moist Respiratory: Symmetrical Chest Expansion and Respiratory Effort, Clear to Auscultation Cardiovascular: NL Sounds; No Murmurs; No JVD, RRR, - - marked whole body anasarca Abdominal: NL Sounds; No Tenderness; No Distention Extremities: No Clubbing, Cyanosis Skin: No Nodules or Sclerosis, - - L hip wound has erythema surrounding the wound (?irritation from duoderm application) with scant amount of whitish slough surrounding the wound, wound base appears clean with healthy granulation tissue, wound itself is about shara sized in diameter Neurological: Alert and Oriented x 3 Result Diagrams: 10/17/16 05:51 10/16/16 05:44 Additional Lab and Data: Lab Results 10/15/16 10/15/16 10/15/16 Range/Units 19:16 19:16 19:16 WBC (3.5-10.8) 10^3/ul RBC (4.0-5.4) 10^6/ul Hgb (12.0-16.0) g/dl Hct (35-47) % MCV (80-97) fL MCH (27-31) pg MCHC (31-36) g/dl RDW (10.5-15) % Plt Count (150-450) 10^3/ul MPV (7.4-10.4) um3 Neut % (Auto) (38-83) % Lymph % (Auto) (25-47) % [place] % (Auto) (1-9) % Eos % (Auto) (0-6) % Baso % (Auto) (0-2) % Absolute Neuts (auto) (1.5-7.7) 10^3/ul Absolute Lymphs (auto) (1.0-4.8) 10^3/ul Absolute Monos (auto) (0-0.8) 10^3/ul Absolute Eos (auto) (0-0.6) 10^3/ul Absolute Basos (auto) (0-0.2) 10^3/ul Absolute Nucleated RBC 10^3/ul Nucleated RBC % Normal RBC Morphology Polychromasia Hypochromasia Macrocytosis Target Cells [place] Cells INR (Anticoag Therapy) 1.94 H (0.89-1.11) APTT 44.0 H (26.0-36.3) seconds Sodium 126 L (133-145) mmol/L Potassium 4.2 (3.5-5.0) mmol/L Chloride 105 (101-111) mmol/L Carbon Dioxide 19 L (22-32) mmol/L Anion Gap 2 (2-11) mmol/L BUN 24 (6-24) mg/dL Creatinine 1.49 H (0.51-0.95) mg/dL Est GFR ( Amer) 44.0 (>60) Est GFR (Non-Af Amer) 34.2 (>60) BUN/Creatinine Ratio 16.1 (8-20) Glucose 102 H (70-100) mg/dL Calcium 8.1 L (8.6-10.3) mg/dL Total Bilirubin 2.90 H (0.2-1.0) mg/dL AST 66 H (13-39) U/L ALT 36 (7-52) U/L Alkaline Phosphatase 145 H (34-104) U/L Total Protein 4.9 L (6.4-8.9) g/dL Albumin 1.5 L (3.2-5.2) g/dL Globulin 3.4 (2-4) g/dL Albumin/Globulin Ratio 0.4 L (1-3) Blood Type A Positive Antibody Screen Negative Crossmatch See Detail 10/15/16 Range/Units 19:16 WBC 5.4 (3.5-10.8) 10^3/ul RBC 2.29 L (4.0-5.4) 10^6/ul Hgb 7.1 L (12.0-16.0) g/dl Hct 22 L (35-47) % MCV 94 (80-97) fL MCH 31 (27-31) pg MCHC 33 (31-36) g/dl RDW 26 H (10.5-15) % Plt Count 71 L (150-450) 10^3/ul MPV 9 (7.4-10.4) um3 Neut % (Auto) 60.5 (38-83) % Lymph % (Auto) 12.9 L (25-47) % [place] % (Auto) 24.7 H (1-9) % Eos % (Auto) 1.3 (0-6) % Baso % (Auto) 0.6 (0-2) % Absolute Neuts (auto) 3.2 (1.5-7.7) 10^3/ul Absolute Lymphs (auto) 0.7 L (1.0-4.8) 10^3/ul Absolute Monos (auto) 1.3 H (0-0.8) 10^3/ul Absolute Eos (auto) 0.1 (0-0.6) 10^3/ul Absolute Basos (auto) 0 (0-0.2) 10^3/ul Absolute Nucleated RBC 0.07 10^3/ul Nucleated RBC % 1.3 Normal RBC Morphology Not Reportable Polychromasia 1+ Hypochromasia 1+ Macrocytosis 1+ Target Cells 2+ [place] Cells 2+ INR (Anticoag Therapy) (0.89-1.11) APTT (26.0-36.3) seconds Sodium (133-145) mmol/L Potassium (3.5-5.0) mmol/L Chloride (101-111) mmol/L Carbon Dioxide (22-32) mmol/L Anion Gap (2-11) mmol/L BUN (6-24) mg/dL Creatinine (0.51-0.95) mg/dL Est GFR ( Amer) (>60) Est GFR (Non-Af Amer) (>60) BUN/Creatinine Ratio (8-20) Glucose (70-100) mg/dL Calcium (8.6-10.3) mg/dL Total Bilirubin (0.2-1.0) mg/dL AST (13-39) U/L ALT (7-52) U/L Alkaline Phosphatase (34-104) U/L Total Protein (6.4-8.9) g/dL Albumin (3.2-5.2) g/dL Globulin (2-4) g/dL Albumin/Globulin Ratio (1-3) Blood Type Antibody Screen Crossmatch Assess/Plan/Problems-Billing Ms Ford is a 75 yo F who has a h/o L hip fracture s/p repair 06/2016 with poor wound healing and possible infection, cirrhosis secondary to [place], hepatic encephalopathy, anemia and thrombocytopenia and stage III CKD who presented to the ER with concern from Dr. Roberts for anemia. - Patient Problems (1) Upper GI bleed Current Visit: Yes Status: Acute Code(s): K92.2 - GASTROINTESTINAL HEMORRHAGE, UNSPECIFIED SNOMED Code(s): 90801837 Comment: H/H is stable today. While she has heme positive stools I do not think she would benefit from an EGD. Will discuss palliative care with the patient's family as the patient has many comorbidities and overall I do not think she will do well in the long run. (2) Anemia Current Visit: Yes Status: Chronic Code(s): D64.9 - ANEMIA, UNSPECIFIED SNOMED Code(s): 264696306 Comment: H/H stable today after 1 unit PRBC. She has baseline chronic anemia related to her cirrhosis. She needs monitoring however the patient is so compromised in many other ways that aggressive measures to try to identify the cause of the drop in H/H seem unnecessary. (3) Thrombocytopenia Current Visit: Yes Status: Acute Code(s): D69.6 - THROMBOCYTOPENIA, UNSPECIFIED SNOMED Code(s): 683967538 Comment: Secondary to cirrhosis. Plt count today is the lowest she has been in some time. This will need to be monitored closely as an outpatient but ther is nothing acute to do at this time. 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 Continue lactulose TID and rifaximin. Hold lactulose for >4 stools per day as the patient is reportedly having very large liquid BMs. Palliative care consult. (5) CKD (chronic kidney disease), stage III Current Visit: Yes Status: Acute Code(s): N18.3 - CHRONIC KIDNEY DISEASE, STAGE 3 (MODERATE) SNOMED Code(s): 527166729 Comment: Creatinine is essentially at baseline. Continue to monitor. (6) Hepatic encephalopathy Current Visit: Yes Status: Chronic Code(s): K72.90 - HEPATIC FAILURE, UNSPECIFIED WITHOUT COMA SNOMED Code(s): 95151713 Comment: No signs of encephalopathy at this time. Continue rifaximin and lactulose. (7) Protein calorie malnutrition Current Visit: Yes Status: Acute Code(s): E46 - UNSPECIFIED PROTEIN-CALORIE MALNUTRITION SNOMED Code(s): 520532338 Comment: The patient has severe protein calorie malnutrition. Her albumin is <1.5. Her last pre-albumin was <3 and I suspect it is no better now. (8) GERD (gastroesophageal reflux disease) Current Visit: Yes Status: Chronic Code(s): K21.9 - GASTRO-ESOPHAGEAL REFLUX DISEASE WITHOUT ESOPHAGITIS SNOMED Code(s): 112080158 Comment: Continue omeprazole. (9) DVT prophylaxis Current Visit: Yes Status: Acute Code(s): UNL3322 - SNOMED Code(s): 148549594 Comment: SCDs only secondary to marked thrombocytopenia. (10) DNR (do not resuscitate) Current Visit: Yes Status: Acute
[2016-10-17] MEDS: LACTULOSE* 30 ML UDC PO SCH ×2 (10:07→12:28)
[2016-10-17] MEDS: Ascorbic Acid TAB* 500 MG PO SCH (10:08)
[2016-10-17] MEDS: Furosemide TAB* 20 MG PO SCH ×2 (10:08→12:28)
[2016-10-17] MEDS: Omeprazole CAP* 20 MG PO SCH (10:08)
[2016-10-17] MEDS: Ferrous Sulfate TAB* 325 MG PO SCH (10:08)
[2016-10-17] MEDS: Sulfamethox/Trimethoprim DS 800/160* TAB PO SCH (10:09)
[2016-10-17] MEDS: Spironolactone TAB* 25 MG PO SCH (10:09)
[2016-10-17] MEDS: Potassium Chlor TAB* 10 MEQ TAB.ER PO SCH (10:09)
[2016-10-17] MEDS: RiFAXimin* 550 MG TAB PO SCH (12:28)
--- NOTE | 2016-10-17 16:28 | DS ---
DISCHARGE SUMMARY: DATE OF ADMISSION: 10/15/16 DATE OF DISCHARGE: 10/17/16 PRIMARY CARE PROVIDER: Dr. Muro. PRINCIPAL DIAGNOSIS: Chronic anemia with heme-positive stool. SECONDARY DIAGNOSES: 1. Cirrhosis. 2. Severe protein-calorie malnutrition. 3. Hyponatremia secondary to cirrhosis. 4. Thrombocytopenia secondary to cirrhosis. 5. Stage 3 chronic kidney disease. 6. Hepatic encephalopathy. 7. Gastroesophageal reflux disease. DISCHARGE MEDICATIONS: 1. Omeprazole 40 mg p.o. b.i.d. 2. Percocet 5/325 one tab p.o. q.4 hours p.r.n. pain 1-5, two tabs p.o. q.4 hours p.r.n. pain 6-10. 3. Benadryl 25 mg p.o. q.6 hours p.r.n. itching. 4. Guaifenesin 10 mL p.o. q.4 hours p.r.n. cough. 5. Xifaxan 550 mg p.o. b.i.d. 6. Ferrous sulfate 325 mg p.o. b.i.d. 7. Vitamin C 500 mg p.o. b.i.d. 8. Spironolactone 100 mg p.o. daily. 9. Citrucel 500 mg p.o. b.i.d. 10. Potassium chloride 20 mEq p.o. daily. 11. Fish oil 1200 mg 1 cap p.o. daily. 12. Multivitamin 1 tab p.o. daily. 13. Lasix 60 mg p.o. daily at 9 a.m., 20 mg p.o. daily at 1300 hours. 14. Bactrim DS 1 tab p.o. daily. 15. Lactulose 30 mL p.o. t.i.d. (new dose and frequency). HOSPITAL COURSE: Ms. Ford is a 75-year-old female with a history of nonalcoholic fatty liver disease with resultant cirrhosis who presents to the emergency room with concerns for need for blood transfusion. The patient was found to be at her baseline in terms of her hemoglobin and hematocrit. The patient was not initially transfused; however, the day after admission, her hemoglobin fell from 7.1 to 6.7, fell even further to 6.6. The patient received 1 unit of packed red blood cells and her hemoglobin is back up to 7.6 at the time of discharge. The patient was found to have heme-positive stool; however, I suspect this is related to her cirrhosis and portal hypertension. I do not think that she would benefit from an endoscopy at this point. Overall, the patient's prognosis is incredibly poor. She has marked thrombocytopenia that has worsened throughout the course of the hospitalization though has been within her range where her platelets have run over the last several months. Additionally, she has an elevated INR and severe protein-calorie malnutrition with an albumin of less than 1.5. Additionally, the patient has chronic kidney disease with creatinine in the 1.1 to 1.5 range. The patient at this point is stable to be discharged back to [facility]. She in fact wants to go back there. I discussed with the patient during her last hospitalization as well as this hospitalization to consider palliative care. I unfortunately never saw the patient's family members during her last hospitalization; so, I spoke to her daughter, Kimberly, today about possible palliative care or hospice informational session. Both the patient and her daughter seem agreeable to this and this will be performed likely at [facility] unless the palliative care provider is able to see the patient prior to being discharged to [facility] today. Overall, I feel that the patient will continue to bounce in and out of the hospital and will continue to decline over the next several months until it becomes even clear that the patient will need hospice. FOLLOWUP CONCERNS: The patient is being discharged to [facility] today, 10/17. ACTIVITY LEVEL: As tolerated. DIET: Regular. CONDITION ON DISCHARGE: Stable. TIME SPENT: 35 minutes was spent discharging the patient. CC: Dr. Muro * [id number]/[facility] #: [id number] FEROZ
[2016-10-17] MEDS ORDERED: Magic Mouth Was-BEN/MAAL/LIDO SWISH SPIT SCH (17:00)
--- NOTE | 2016-10-17 21:39 | CONS ---
CC: Miriam So MD PALLIATIVE CARE CONSULTATION REPORT: DATE OF CONSULT: 10/17/16 PRIMARY CARE PHYSICIAN: Miriam So MD REQUESTING PHYSICIAN FOR CONSULT: Niecy Tariq DO REASON FOR CONSULT: Evaluation for advance care planning and hospice eligibility. HISTORY OF PRESENT ILLNESS: This is a 75-year-old with past medical history of cirrhosis secondary to nonalcoholic fatty liver disease with end-stage liver disease; history of hepatic encephalopathy; CKD, stage 3, with recurrent admissions over the past few months, who presented from [facility] for concern for anemia. The patient had recent lower GI bleed that required admission back in August of 2016. On this admission, the patient was admitted with hemoglobin of 7.1, hematocrit of 22. The patient presenting with severe protein-calorie malnutrition, end-stage liver disease. She has ongoing anemia with positive Hemoccult, chronic thrombocytopenia. She also has chronic left hip wound with poor wound healing. She has had several recurrent admissions and the hospitalist team asked for evaluation. On my encounter, the patient complains of a cough. She denies any pain. She states she does have difficulty eating solid foods because of the sores in her mouth and her lips are burning. She denies any shortness of breath. No chest pain. When asked her about end-of-life care, she states that she wants to get better and be at home. She was living with her son and her [id number], who are helping care of her. She is motivated to get better. When I discussed hospice, she states that "that is when you are ready to ." I had the impression that the patient was not ready or in that mindset yet, but this was applied to her. Otherwise, remaining review of systems is negative. PAST MEDICAL HISTORY: 1. Cirrhosis with end-stage liver disease secondary to nonalcoholic fatty liver. 2. History of hepatic encephalopathy. 3. GERD. 4. Seizure disorder. 5. Chronic thrombocytopenia. 6. Chronic anemia with possibility secondary to GI bleed. 7. CKD, stage 3. 8. History of GI bleed. PAST SURGICAL HISTORY: 1. Status post cataract extraction. 2. Status post left hip reduction and internal fixation on 07/09/16 with subsequent complications. INPATIENT MEDICATIONS: As follows: 1. Ascorbic acid 500 mg p.o. b.i.d. 2. Ferrous sulfate 325 mg p.o. b.i.d. 3. Lasix 20 mg at 1300, 60 mg at 900. 4. Lactulose 30 mL p.o. t.i.d. 5. Omeprazole 40 mg p.o. b.i.d. 6. Potassium chloride 20 mEq daily. 7. Rifaximin 550 mg p.o. b.i.d. 8. Spironolactone 100 mg p.o. daily. 9. Bactrim 1 tab daily. 10. Guaifenesin 10 mL q.4 hours as needed. 11. Percocet 1 to 2 tabs every 4 hours as needed. ALLERGIES: No known drug allergies. FAMILY HISTORY: Mother from old age. Father passed from pulmonary embolism. Her sister also has cirrhosis. SOCIAL HISTORY: It appears that the patient has been a recent resident at [facility]. She quit smoking 20 years ago, prior to that she was smoking for 37 years. No alcohol or illicit drug use. 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 She is , with 2 children, Gale and Chip. She states her primary healthcare proxy is her sister, Hallie Hudson, phone #[phone]. Her secondary decision makers are her children, Gale and Chip. Her MOLST form currently is DNR/DNI. REVIEW OF SYSTEMS: As mentioned in the HPI. PHYSICAL EXAM: Vitals: Temp 97.5, pulse rate 90, respiratory rate 14, oxygen saturation 100% on room air, blood pressure 118/31. General: In no acute distress. Resting comfortably. She does have a persistent wet coarse cough. HEENT: Neck is supple. No lymphadenopathy. Oropharynx, mucous membranes moist. The patient has ulcerated lesions on the anterior surface of her lip and in the buccal mucosa on the right side. No white patch is appreciated. Posterior oropharynx is normal. No erythema or exudate. Pupils are equal and reactive, anicteric. Head: Normocephalic. Cardiac: Regular rate and rhythm with soft, systolic murmur. Respiratory: Coarse, rhonchorous breath sounds bilaterally with bilateral expiratory wheezing. Abdomen: +2 pitting edema bilaterally with distant pulses. Neurological: Alert and oriented x3. No focal neurological deficits. LABORATORY DATA: White count 5.2, hemoglobin 7.6, hematocrit 23, platelets 45. Sodium 128, potassium 4.1, chloride 106, bicarb 17, BUN 24, creatinine 1.37. Total bilirubin is 2.6, AST of 55, ALT of 33, alk phos 124. Albumin is less than 1.5. INR is 1.94. ASSESSMENT AND PLAN: This is a 75-year-old female with past medical history of cirrhosis secondary to nonalcoholic fatty liver disease. She has findings of end- stage liver disease with poor synthetic function with an elevated INR and albumin that is also low. Her INR is greater than 1.5 and albumin is less than 2.5. She appears to have ascites refractory to her treatment as she is on appropriate medication regimen. She also appears to have progressive malnutrition with poor p.o. intake. These findings make the patient eligible for hospice. The patient at this time does not seem to be in the mindset for hospice and wants to get better and improve and go home with physical therapy and VNS services. I have not been able to get in touch with the daughter to discuss my recommendation and findings. I did speak with Dr. Tariq regarding this. I did order some Magic Mouthwash as well to help with her mouth sores and may be improve her solid intake to improve her protein nutritional status. The patient would be a good candidate for an outpatient PATH referral as I did discuss that if she does not improve and continue to deteriorate, then we should readdress goals of care and advance care planning and talk about hospice once she is ready. The patient is agreeable to this. Thank you for this consultation. I will follow along with you. PATIENT TIME: Greater than 60 minutes was spent doing this consultation, more than half the time spent in direct patient contact. [id number]/[facility] #: [id number] FEROZ
== END 2016-10-17 17:30 | DRG 811 ==
LOC: ED 16:27 → MED 20:47 → OBSVTOIN 10-16 17:22
PROVIDERS: ADMIT Hospitalist; ATTEND Hospitalist
PROC: 30233N1 Transfusion of Nonautologous Red Blood Cells into Peripheral Vein, Percutaneous Approach (ICD-10-PCS; principal; 2016-10-16)
DX: D50.0 Iron deficiency anemia secondary to blood loss (chronic) (principal); E43 Unspecified severe protein-calorie malnutrition; D69.59 Other secondary thrombocytopenia; K76.6 Portal hypertension; R18.8 Other ascites; K74.60 Unspecified cirrhosis of liver; E87.1 Hypo-osmolality and hyponatremia; K92.1 Melena; N18.3 Chronic kidney disease, stage 3 (moderate); K72.90 Hepatic failure, unspecified without coma; K21.9 Gastro-esophageal reflux disease without esophagitis; K76.0 Fatty (change of) liver, not elsewhere classified; G40.909 Epilepsy, unspecified, not intractable, without status epilepticus; Z66 Do not resuscitate; Z79.899 Other long term (current) drug therapy; Z83.2 Family history of diseases of the blood and blood-forming organs and certain disorders involving the immune mechanism; Z87.891 Personal history of nicotine dependence; T81.89XD Other complications of procedures, not elsewhere classified, subsequent encounter; Z68.35 Body mass index [BMI] 35.0-35.9, adult
CPT/HCPCS: 36415; 71020; 80053; 82272; 85014; 85018; 85025; 85027; 85610; 85730; 86850; 86900; 86901; 86922; 93005; A9270-GY; P9040